=== PATIENT | male | born 1955 | race Caucasian/White ===

== ENCOUNTER 2016-08-23 11:10 | Outpatient (CLI) | payer MEDICARE, MEDICAID | END 2016-08-23 11:11 | disposition home or self-care (01) | DX: E11.9 Type 2 diabetes mellitus without complications (principal); E78.5 Hyperlipidemia, unspecified ==

== ENCOUNTER 2016-10-28 10:18 | Outpatient (CLI) | payer MEDICARE, MEDICAID | END 2016-10-28 10:19 | disposition home or self-care (01) | DX: E11.9 Type 2 diabetes mellitus without complications (principal); M45.9 Ankylosing spondylitis of unspecified sites in spine ==

== ENCOUNTER → 2017-03-25 | Outpatient (CLI) | payer MEDICARE, MEDICAID ==
[2017-03-25 12:43] LABS: BASOPHILS # (AUTO) 0.1 10^3/uL (0.0-0.1); BASOPHILS % (AUTO) 0.6 %; EOSINOPHILS # (AUTO) 0.3 10^3/uL (0.0-0.7); EOSINOPHILS % (AUTO) 2.8 %; HCT - HEMATOCRIT 44.6 % (42.0-52.0); LYMPHOCYTES # (AUTO) 2.2 10^3/uL (1.5-3.5); LYMPHOCYTES % (AUTO) 24.2 %; MEAN CORPUSCULAR HEMOGLOBIN 31.1 pg (27.0-31.0); MEAN CORPUSCULAR HGB CONC 33.7 g/dL (32.0-36.0); MEAN CORPUSCULAR VOLUME 92.5 fL (80.0-94.0); MONOCYTES # (AUTO) 0.7 10^3/uL (0.0-1.0); MONOCYTES % (AUTO) 7.8 %; NEUTROPHILS # (AUTO) 5.7 10^3/uL (1.5-6.6); NEUTROPHILS % (AUTO) 64.6 %; RED BLOOD COUNT 4.82 10^6/uL (4.70-6.10); RED CELL DISTRIBUTION WIDTH 13.8 % (12.0-15.0); UNCORRECTED WHITE BLOOD COUNT 8.9 x10^3/uL; WHITE BLOOD COUNT 8.9 x10^3/uL (4.8-10.8)
[2017-03-25 12:59] LABS: ALBUMIN/GLOBULIN RATIO 1.4 (1.0-2.2); BILIRUBIN,TOTAL 0.5 mg/dL (0.2-1.0); CALCIUM 9.4 mg/dL (8.5-10.3); CREATININE 1.1 mg/dL (0.6-1.2); POTASSIUM 4.3 mmol/L (3.5-5.0); TOTAL PROTEIN 7.1 g/dL (6.7-8.2)
[2017-03-25 13:40] LABS: HEMOGLOBIN A1C 0.76 g/dL
== END ==
LOC: LAB.WCP 08:59
PROVIDERS: ATTEND Family Medicine
DX: E11.9 Type 2 diabetes mellitus without complications (principal)
CPT/HCPCS: 36415; 80053; 82043; 83036; 85025

== ENCOUNTER 2017-04-09 12:19 | Outpatient (CLI) | payer MEDICARE, MEDICAID ==
[2017-04-09 19:17] LABS: BASOPHILS # (AUTO) 0.1 10^3/uL (0.0-0.1); BASOPHILS % (AUTO) 1.4 %; EOSINOPHILS # (AUTO) 0.1 10^3/uL (0.0-0.7); EOSINOPHILS % (AUTO) 1.4 %; HGB - HEMOGLOBIN 14.2 g/dL (14.0-18.0); LYMPHOCYTES # (AUTO) 3.2 10^3/uL (1.5-3.5); MEAN CORPUSCULAR HEMOGLOBIN 30.8 pg (27.0-31.0); MEAN CORPUSCULAR VOLUME 93.3 fL (80.0-94.0); MEAN PLATELET VOLUME 7.3 fL (7.4-11.4); MONOCYTES # (AUTO) 0.8 10^3/uL (0.0-1.0); MONOCYTES % (AUTO) 7.2 %; NEUTROPHILS # (AUTO) 6.1 10^3/uL (1.5-6.6); NUCLEATED RED BLOOD CELLS AUTO 0.1 /100WBC; RED BLOOD COUNT 4.61 10^6/uL (4.70-6.10); RED CELL DISTRIBUTION WIDTH 14.1 % (12.0-15.0); UNCORRECTED WHITE BLOOD COUNT 10.4 x10^3/uL; WHITE BLOOD COUNT 10.4 x10^3/uL (4.8-10.8)
== END 2017-04-09 12:20 | disposition home or self-care (01) ==
LOC: LAB.WCP 12:19
PROVIDERS: ATTEND Internal Medicine Rheumatology
DX: M45.9 Ankylosing spondylitis of unspecified sites in spine (principal)
CPT/HCPCS: 36415; 84450; 84460; 85025; 85651

== ENCOUNTER 2017-04-15 11:30 | Outpatient (CLI) | payer MEDICARE, MEDICAID ==
--- NOTE | 2017-04-15 18:12 | CT Report ---
CT CHEST WITHOUT CONTRAST: 04/15/2017 CLINICAL INDICATION: A 61-year-old asymptomatic patient with 35 pack year history of smoking, curren t smoker for lung cancer screening. Axial CT images of the chest were obtained without intravenous contrast, using low dose screening figueroa hnique. In accordance with CT protocol optimization, one or more of the following dose reduction techniques w ere utilized for this exam: automated exposure control, adjustment of mA and/or KV based on patient size, or use of iterative reconstructive technique. No previous CT is available for comparison. The heart and great vessels demonstrate mild atherosclerotic calcification. Emphysema is present, wi th right worse than left apical scarring. No suspicious pulmonary nodule or mass lesion is present. No effusion or pneumothorax. Osseous structures demonstrate degenerative changes. Limited evaluati on of upper abdominal structures demonstrates normal adrenal glands. IMPRESSION: EMPHYSEMA, WITH BIAPICAL SCARRING. NO SUSPICIOUS PULMONARY NODULE OR MASS LESION. RECOMMENDATION: CONTINUE ANNUAL SCREENING, WITH LOW DOSE CT IN 12 MONTHS. LUNG RADS CATEGORY 1, NEGATIVE. JOB #: [id number] EXT JOB #:[id number]
== END 2017-04-15 11:31 | disposition home or self-care (01) ==
LOC: DI 11:30
PROVIDERS: ATTEND Family Medicine
DX: Z12.2 Encounter for screening for malignant neoplasm of respiratory organs (principal); J43.9 Emphysema, unspecified; F17.210 Nicotine dependence, cigarettes, uncomplicated

== ENCOUNTER 2017-07-16 11:40 | Outpatient (CLI) | payer MEDICARE, MEDICAID ==
[2017-07-16 19:32] LABS: BASOPHILS # (AUTO) 0.1 10^3/uL (0.0-0.1); BASOPHILS % (AUTO) 0.6 %; EOSINOPHILS # (AUTO) 0.1 10^3/uL (0.0-0.7); EOSINOPHILS % (AUTO) 1.2 %; HGB - HEMOGLOBIN 13.7 g/dL (14.0-18.0); LYMPHOCYTES # (AUTO) 2.6 10^3/uL (1.5-3.5); LYMPHOCYTES % (AUTO) 27.2 %; MEAN CORPUSCULAR HGB CONC 32.3 g/dL (32.0-36.0); MEAN CORPUSCULAR VOLUME 92.8 fL (80.0-94.0); MONOCYTES # (AUTO) 0.7 10^3/uL (0.0-1.0); MONOCYTES % (AUTO) 6.7 %; NEUTROPHILS # (AUTO) 6.2 10^3/uL (1.5-6.6); NEUTROPHILS % (AUTO) 64.3 %; PLT - PLATELET COUNT 321 10^3/uL (130-450); RED BLOOD COUNT 4.55 10^6/uL (4.70-6.10); RED CELL DISTRIBUTION WIDTH 13.2 % (12.0-15.0); WHITE BLOOD COUNT 9.7 x10^3/uL (4.8-10.8)
[2017-07-16 19:51] LABS: HB2 TOTAL 14.8 g/dL; HEMOGLOBIN A1C 0.64 g/dL; HEMOGLOBIN A1C % 6.1 % (4.6-6.2)
[2017-07-16 19:52] LABS: ALBUMIN/GLOBULIN RATIO 1.3 (1.0-2.2); ALKALINE PHOSPHATASE 55 IU/L (42-121); ALT ALANINE AMINOTRANSFERASE 18 IU/L (10-60); AST ASPARTATE AMINOTRANSFERASE 22 IU/L (10-42); BILIRUBIN,TOTAL 0.3 mg/dL (0.2-1.0); BUN - BLOOD UREA NITROGEN 15 mg/dL (6-20); CALCIUM 9.7 mg/dL (8.5-10.3); CARBON DIOXIDE - CO2 29 mmol/L (21-32); CHLORIDE 101 mmol/L (101-111); CHOL/HDL RATIO 3.8 (<5.0); CHOLESTEROL 144 mg/dL; CREATININE 0.9 mg/dL (0.6-1.2); GFR - MDRD 86 (>89); GLUCOSE 110 mg/dL (70-100); HDL CHOLESTEROL 38 mg/dL; LDL CHOLESTEROL,CALCULATED 94 mg/dL; LDL/HDL RATIO 2.5 (<3.6); SODIUM 136 mmol/L (135-145); TOTAL PROTEIN 7.1 g/dL (6.7-8.2); VLDL CHOLESTEROL 12 mg/dL
== END 2017-07-16 11:41 ==
LOC: LAB.WCP 11:40
PROVIDERS: ATTEND Family Medicine
DX: E11.9 Type 2 diabetes mellitus without complications (principal); Z12.5 Encounter for screening for malignant neoplasm of prostate
CPT/HCPCS: 36415; 80053; 80061; 83036; 84443; 85025; G0103; 84153

== ENCOUNTER 2017-08-14 09:31 | Outpatient (CLI) | payer MEDICARE, MEDICAID ==
[2017-08-14] MEDS ORDERED: REGADENOSON 0.4 MG/5 ML SYRINGE IVP ONE ×2 (09:37→14:37)
[2017-08-14 17:04] VITALS: BP 148/84
--- NOTE | 2017-08-14 18:27 | CARDIAC PROCEDURE NOTE ---
DATE OF SERVICE: 08/14/2017 Physician: DARREN Qureshi PRIMARY CARE PHYSICIAN: Dr. Nya Tee PROCEDURE: Pharmacologic cardiac stress test. PROCEDURE DIAGNOSIS: Chest pain and ECG changes of inferior T-wave inversion. CARDIAC RISK FACTORS: Include age, smoker, diabetes, hypertension, and hyperlipidemia. PREVIOUS CARDIAC PROCEDURES: None. CLINICAL HISTORY: 61-year-old male without known coronary artery disease. The patient has COPD. INITIAL RESTING VITAL SIGNS: Blood pressure 148/84, heart rate 68. Height 64 inches, weight 177 pounds, BMI 30.0. PROCEDURE AND FINDINGS: The patient identity and date verified, consent signed, pharmaceutical check. Pharmacologic stress testing was performed with Lexiscan at a dose of 0.4 mg over 10 seconds. The heart rate increased to 74 beats per minute from the infusion. Blood pressure response was normal during the stress procedure. The patient developed no infusion-related symptoms. The resting ECG demonstrated normal sinus rhythm with nonspecific inferior T-wave inversions in leads II, III, and aVF. These were consistent with the office ECG. Maximal ST segment depression with stress was 0. There were no other T wave changes and no ectopy. FINAL IMPRESSIONS 1. Nondiagnostic electrocardiogram for ischemia in the setting of vasodilator stress. 2. Negative stress test for angina. 3. No ectopy. 4. Await myocardial perfusion report. TD: 08/14/2017 18:26 KI
--- NOTE | 2017-08-15 11:06 | Nuclear Medicine Report ---
EXAM: NUCLEAR MEDICINE MYOCARDIAL PERFUSION STRESS AND REST EXAM DATE: 08/14/2017 02:47 PM. CLINICAL HISTORY: Chest pain. COMPARISON: X-ray 07/30/2017. TECHNIQUE: Patient given 10.3 mCi technetium 99m sestamibi IV for the rest portion of the study. Non- gated cardiac SPECT scintigraphy performed with multiplanar reformats. After an appropriate delay, patient given 0.4 mg Lexiscan IV for pharmacologic stress. Patient given 41.8 mCi technetium 99m sestamibi IV. Cardiac gated SPECT scintigraphy performed with m ultiplanar reformats, left ventricular ejection fraction estimation, and wall motion analysis. FINDINGS: There is a moderate-sized focus of moderate decreased activity in the basilar inferior wall extending inferoseptal. This is fixed on stress and rest. Also, small focus fixed mild decreased activity apical inferolateral wall. No reversible stress-related perfusion defects. Inferior basilar wall hypokinesis. Left ventricular ejection fraction estimated at 49%. IMPRESSION: 1. Inferior basilar infarct extending inferoseptal. 2. Left ventricular ejection fraction estimated at 49%. 3. No scintigraphic evidence of inducible ischemia. [facility] Referring Provider Line: [phone] SITE ID: [id number]
== END 2017-08-14 09:32 | disposition home or self-care (01) ==
LOC: DI 09:31
PROVIDERS: ATTEND Family Medicine
DX: R07.9 Chest pain, unspecified (principal); R94.39 Abnormal result of other cardiovascular function study; E11.9 Type 2 diabetes mellitus without complications; I10 Essential (primary) hypertension; E78.5 Hyperlipidemia, unspecified; F17.210 Nicotine dependence, cigarettes, uncomplicated
CPT/HCPCS: 78452; 93017; A9500; J2785

== ENCOUNTER 2017-09-09 13:00 | Outpatient (CLI) | payer MEDICARE, MEDICAID ==
[2017-09-09 12:45] LABS: PT - PROTHROMBIN TIME 11.2 secs (9.9-12.6)
[2017-09-09 12:48] LABS: BASOPHILS # (AUTO) 0.1 10^3/uL (0.0-0.1); BASOPHILS % (AUTO) 0.7 %; EOSINOPHILS # (AUTO) 0.2 10^3/uL (0.0-0.7); EOSINOPHILS % (AUTO) 2.1 %; HGB - HEMOGLOBIN 13.7 g/dL (14.0-18.0); LYMPHOCYTES # (AUTO) 1.8 10^3/uL (1.5-3.5); LYMPHOCYTES % (AUTO) 20.8 %; MEAN CORPUSCULAR HEMOGLOBIN 30.4 pg (27.0-31.0); MEAN CORPUSCULAR HGB CONC 33.9 g/dL (32.0-36.0); MEAN CORPUSCULAR VOLUME 89.8 fL (80.0-94.0); MEAN PLATELET VOLUME 7.4 fL (7.4-11.4); MONOCYTES # (AUTO) 0.7 10^3/uL (0.0-1.0); NEUTROPHILS # (AUTO) 6.1 10^3/uL (1.5-6.6); NEUTROPHILS % (AUTO) 68.4 %; PLT - PLATELET COUNT 260 10^3/uL (130-450); RED BLOOD COUNT 4.49 10^6/uL (4.70-6.10); RED CELL DISTRIBUTION WIDTH 13.5 % (12.0-15.0); WHITE BLOOD COUNT 8.9 x10^3/uL (4.8-10.8)
[2017-09-09 13:50] LABS: CALCIUM 8.9 mg/dL (8.5-10.3); CREATININE 0.8 mg/dL (0.6-1.2)
== END 2017-09-09 13:01 | disposition home or self-care (01) ==
LOC: LAB.N 13:00
PROVIDERS: ATTEND Internal Medicine Cardiovascular Disease
DX: R94.39 Abnormal result of other cardiovascular function study (principal); I20.9 Angina pectoris, unspecified
CPT/HCPCS: 36415; 80048; 85025; 85610; 85730

== ENCOUNTER 2017-12-03 08:00 | Outpatient (CLI) | payer MEDICARE, MEDICAID ==
[2017-12-03 18:56] LABS: BASOPHILS # (AUTO) 0.1 10^3/uL (0.0-0.1); BASOPHILS % (AUTO) 0.7 %; EOSINOPHILS # (AUTO) 0.1 10^3/uL (0.0-0.7); EOSINOPHILS % (AUTO) 1.5 %; HGB - HEMOGLOBIN 13.4 g/dL (14.0-18.0); LYMPHOCYTES # (AUTO) 2.7 10^3/uL (1.5-3.5); LYMPHOCYTES % (AUTO) 28.6 %; MEAN CORPUSCULAR HGB CONC 32.8 g/dL (32.0-36.0); MEAN CORPUSCULAR VOLUME 91.7 fL (80.0-94.0); MEAN PLATELET VOLUME 6.9 fL (7.4-11.4); MONOCYTES # (AUTO) 0.6 10^3/uL (0.0-1.0); MONOCYTES % (AUTO) 6.6 %; NEUTROPHILS # (AUTO) 5.8 10^3/uL (1.5-6.6); NEUTROPHILS % (AUTO) 62.6 %; PLT - PLATELET COUNT 312 10^3/uL (130-450); RED BLOOD COUNT 4.45 10^6/uL (4.70-6.10); RED CELL DISTRIBUTION WIDTH 13.2 % (12.0-15.0); WHITE BLOOD COUNT 9.3 x10^3/uL (4.8-10.8)
[2017-12-03 19:28] LABS: ALBUMIN 3.7 g/dL (3.2-5.5); ALBUMIN/GLOBULIN RATIO 1.1 (1.0-2.2); ALKALINE PHOSPHATASE 62 IU/L (42-121); ALT ALANINE AMINOTRANSFERASE 19 IU/L (10-60); AST ASPARTATE AMINOTRANSFERASE 22 IU/L (10-42); BILIRUBIN,TOTAL 0.4 mg/dL (0.2-1.0); BUN - BLOOD UREA NITROGEN 20 mg/dL (6-20); CALCIUM 9.4 mg/dL (8.5-10.3); CARBON DIOXIDE - CO2 23 mmol/L (21-32); CHLORIDE 102 mmol/L (101-111); GFR - MDRD 76 (>89); GLUCOSE 282 mg/dL (70-100); SODIUM 132 mmol/L (135-145)
[2017-12-03 19:36] LABS: CRP - C-REACTIVE PROTEIN < 1.0 mg/dL (0-1.0)
== END 2017-12-03 08:01 | disposition home or self-care (01) ==
LOC: LAB.WCP 08:00
PROVIDERS: ATTEND Internal Medicine Rheumatology
DX: M45.9 Ankylosing spondylitis of unspecified sites in spine (principal)
CPT/HCPCS: 36415; 80053; 85025; 85651; 86140

== ENCOUNTER 2018-03-17 08:00 | Outpatient (CLI) | payer MEDICARE, MEDICAID ==
[2018-03-17 13:13] LABS: BASOPHILS # (AUTO) 0.1 10^3/uL (0.0-0.1); BASOPHILS % (AUTO) 0.9 %; EOSINOPHILS # (AUTO) 0.2 10^3/uL (0.0-0.7); EOSINOPHILS % (AUTO) 2.2 %; HGB - HEMOGLOBIN 13.5 g/dL (14.0-18.0); LYMPHOCYTES # (AUTO) 2.4 10^3/uL (1.5-3.5); LYMPHOCYTES % (AUTO) 31.8 %; MEAN CORPUSCULAR HEMOGLOBIN 30.4 pg (27.0-31.0); MEAN CORPUSCULAR HGB CONC 33.8 g/dL (32.0-36.0); MEAN CORPUSCULAR VOLUME 90.2 fL (80.0-94.0); MONOCYTES # (AUTO) 0.6 10^3/uL (0.0-1.0); MONOCYTES % (AUTO) 7.6 %; NEUTROPHILS # (AUTO) 4.3 10^3/uL (1.5-6.6); NEUTROPHILS % (AUTO) 57.5 %; PLT - PLATELET COUNT 291 10^3/uL (130-450); RED BLOOD COUNT 4.43 10^6/uL (4.70-6.10); RED CELL DISTRIBUTION WIDTH 14.4 % (12.0-15.0); WHITE BLOOD COUNT 7.5 x10^3/uL (4.8-10.8)
[2018-03-17 13:35] LABS: ALBUMIN 3.9 g/dL (3.2-5.5); ALKALINE PHOSPHATASE 68 IU/L (42-121); ALT ALANINE AMINOTRANSFERASE 21 IU/L (10-60); AST ASPARTATE AMINOTRANSFERASE 23 IU/L (10-42); BILIRUBIN,TOTAL 0.5 mg/dL (0.2-1.0); BUN - BLOOD UREA NITROGEN 18 mg/dL (6-20); CALCIUM 9.5 mg/dL (8.5-10.3); CARBON DIOXIDE - CO2 27 mmol/L (21-32); CHLORIDE 99 mmol/L (101-111); CREATININE 1.1 mg/dL (0.6-1.2); GFR - MDRD 68 (>89); GLUCOSE 167 mg/dL (70-100); SODIUM 135 mmol/L (135-145); TOTAL PROTEIN 7.1 g/dL (6.7-8.2)
[2018-03-17 13:36] LABS: ALBUMIN/GLOBULIN RATIO 1.2 (1.0-2.2); CHOL/HDL RATIO 3.2 (<5.0); CHOLESTEROL 108 mg/dL; HDL CHOLESTEROL 34 mg/dL; LDL CHOLESTEROL,CALCULATED 52 mg/dL; LDL/HDL RATIO 1.5 (<3.6); VLDL CHOLESTEROL 22 mg/dL
[2018-03-17 13:46] LABS: HB2 TOTAL 14.6 g/dL; HEMOGLOBIN A1C 0.92 g/dL; HEMOGLOBIN A1C % 7.9 % (4.6-6.2)
== END 2018-03-17 08:01 | disposition home or self-care (01) ==
LOC: LAB.WCP 08:00
PROVIDERS: ATTEND Family Medicine
DX: E11.9 Type 2 diabetes mellitus without complications (principal)
CPT/HCPCS: 36415; 80053; 80061; 82043; 83036; 83721; 84443; 85025

== ENCOUNTER → 2018-04-23 | Outpatient (CLI) | payer MEDICARE, MEDICAID | LOC: RT 12:30 | PROVIDERS: ATTEND Internal Medicine Cardiovascular Disease | DX: R07.9 Chest pain, unspecified (principal) | CPT/HCPCS: 93005 ==

== ENCOUNTER 2018-07-13 08:00 | Outpatient (CLI) | payer MEDICARE, MEDICAID ==
[2018-07-13 13:39] LABS: ALBUMIN 3.9 g/dL (3.2-5.5); ALBUMIN/GLOBULIN RATIO 1.2 (1.0-2.2); ALKALINE PHOSPHATASE 55 IU/L (42-121); ALT ALANINE AMINOTRANSFERASE 20 IU/L (10-60); AST ASPARTATE AMINOTRANSFERASE 27 IU/L (10-42); BILIRUBIN,TOTAL 0.4 mg/dL (0.2-1.0); BUN - BLOOD UREA NITROGEN 23 mg/dL (6-20); CALCIUM 9.1 mg/dL (8.5-10.3); CARBON DIOXIDE - CO2 27 mmol/L (21-32); CHLORIDE 103 mmol/L (101-111); CHOL/HDL RATIO 2.1 (<5.0); CHOLESTEROL 100 mg/dL; CREATININE 0.9 mg/dL (0.6-1.2); GFR - MDRD 86 (>89); GLUCOSE 127 mg/dL (70-100); HDL CHOLESTEROL 47 mg/dL; LDL CHOLESTEROL,CALCULATED 44 mg/dL; LDL/HDL RATIO 0.9 (<3.6); SODIUM 138 mmol/L (135-145); TOTAL PROTEIN 7.1 g/dL (6.7-8.2); VLDL CHOLESTEROL 9 mg/dL
[2018-07-13 14:19] LABS: BASOPHILS # (AUTO) 0.1 10^3/uL (0.0-0.1); BASOPHILS % (AUTO) 0.8 %; EOSINOPHILS # (AUTO) 0.1 10^3/uL (0.0-0.7); EOSINOPHILS % (AUTO) 1.6 %; HGB - HEMOGLOBIN 13.1 g/dL (14.0-18.0); LYMPHOCYTES # (AUTO) 1.9 10^3/uL (1.5-3.5); MEAN CORPUSCULAR HEMOGLOBIN 30.9 pg (27.0-31.0); MEAN CORPUSCULAR HGB CONC 33.6 g/dL (32.0-36.0); MEAN CORPUSCULAR VOLUME 92.1 fL (80.0-94.0); MEAN PLATELET VOLUME 7.1 fL (7.4-11.4); MONOCYTES # (AUTO) 0.5 10^3/uL (0.0-1.0); MONOCYTES % (AUTO) 6.6 %; NEUTROPHILS # (AUTO) 5.5 10^3/uL (1.5-6.6); PLT - PLATELET COUNT 306 10^3/uL (130-450); RED BLOOD COUNT 4.24 10^6/uL (4.70-6.10); RED CELL DISTRIBUTION WIDTH 13.9 % (12.0-15.0); WHITE BLOOD COUNT 8.1 x10^3/uL (4.8-10.8)
[2018-07-13 14:23] LABS: HB2 TOTAL 13.9 g/dL; HEMOGLOBIN A1C 0.71 g/dL; HEMOGLOBIN A1C % 6.8 % (4.6-6.2)
== END 2018-07-13 23:59 | disposition home or self-care (01) ==
LOC: LAB.WCP 08:00
PROVIDERS: ATTEND Family Medicine
DX: E11.9 Type 2 diabetes mellitus without complications (principal)
CPT/HCPCS: 36415; 80053; 80061; 83036; 83721; 85025

== ENCOUNTER 2018-07-29 08:00 | Outpatient (CLI) | payer MEDICARE, MEDICAID | END 2018-07-29 23:59 | disposition home or self-care (01) | LOC: LAB.N 08:00 | PROVIDERS: ATTEND Internal Medicine Rheumatology | DX: M45.9 Ankylosing spondylitis of unspecified sites in spine (principal) | CPT/HCPCS: 36415; 85651; 86140 ==

== ENCOUNTER 2018-10-01 07:37 | Outpatient (CLI) | payer MEDICARE, MEDICAID ==
--- NOTE | 2018-10-01 15:54 | MRI Report ---
Reason: SHOULDER PAIN Procedure Date: 10/01/2018 Accession Number: [id number] / [id number] Procedure: MRI - Shoulder RT W/O CPT Code: FULL RESULT: EXAM: RIGHT SHOULDER MRI WITHOUT CONTRAST EXAM DATE: 10/01/2018 08:38 AM. CLINICAL HISTORY: Shoulder pain. COMPARISON: None. TECHNIQUE: Multiplanar, multisequence T1-weighted and fluid-sensitive sequences of the shoulder without contrast. Other: None. FINDINGS: Acromioclavicular Region: The acromion is type II. AC joint is moderately osteoarthritic. The coracoacromial and coracoclavicular ligaments are intact. No subacromial/subdeltoid bursal fluid. Glenohumeral Region: No subluxation. No effusion or loose bodies. The articular cartilage is unremarkable. The glenohumeral ligaments and joint capsule are unremarkable. Bone Marrow: No fracture, marrow edema or bone lesions. Labrum: The labrum is unremarkable on this nonarthrographic study. Musculature/Rotator Cuff: Increased T2 signal is seen in the supraspinatus and infraspinatus portions of the rotator cuff without partial-thickness or full-thickness fluid-filled gaps. Subscapularis and teres minor are normal. In the central aspect of the musculotendinous junction of the infraspinatus, there is a fusiform shaped fluid collection. Series 801 image 2, series 501 image 18. Other muscle bellies appear unremarkable. Biceps Tendon: The long head of the biceps tendon and biceps beau are intact. Other: The subcutaneous tissues are unremarkable. IMPRESSION: 1. Type II unipartite undersurface osseous acromion shape. AC joint is moderately osteoarthritic. 2. Mild to moderate tendinopathy/tendinitis at the supraspinatus and infraspinatus portions of the rotator cuff. 3. There is a focal area of fluid seen within the musculotendinous junction of the infraspinatus, this is probably an intramuscular tear with some fluid in it. 4. Labrum, capsular structures and long head of biceps appear unremarkable. [facility] MUSCULOSKELETAL RADIOLOGY SECTION
== END 2018-10-01 07:38 | disposition home or self-care (01) ==
LOC: DI 07:37
PROVIDERS: ATTEND Orthopaedic Surgery Sports Medicine
DX: M19.011 Primary osteoarthritis, right shoulder (principal); M77.8 Other enthesopathies, not elsewhere classified; M67.911 Unspecified disorder of synovium and tendon, right shoulder

== ENCOUNTER 2018-10-19 08:00 | Outpatient (CLI) | payer MEDICARE, MEDICAID ==
[2018-10-19 13:01] LABS: BUN - BLOOD UREA NITROGEN 24 mg/dL (6-20); CALCIUM 9.4 mg/dL (8.5-10.3); CARBON DIOXIDE - CO2 28 mmol/L (21-32); CHLORIDE 102 mmol/L (101-111); CHOL/HDL RATIO 2.6 (<5.0); CHOLESTEROL 105 mg/dL; GFR - MDRD 76 (>89); GLUCOSE 196 mg/dL (70-100); HDL CHOLESTEROL 40 mg/dL; LDL CHOLESTEROL,CALCULATED 54 mg/dL; LDL/HDL RATIO 1.4 (<3.6); SODIUM 136 mmol/L (135-145); VLDL CHOLESTEROL 11 mg/dL
[2018-10-19 13:09] LABS: CREATININE,URINE 67.8 mg/dL; MICROALBUM/CREATININE RATIO,UR 160.8 ug/mg (<30.0); MICROALBUMIN,URINE 10.9 mg/dL (0-300.0)
[2018-10-19 13:11] LABS: HB2 TOTAL 14.4 g/dL; HEMOGLOBIN A1C 0.78 g/dL; HEMOGLOBIN A1C % 7.1 % (4.6-6.2)
== END 2018-10-19 23:59 | disposition home or self-care (01) ==
LOC: LAB.WCP 08:00
PROVIDERS: ATTEND Family Medicine
DX: E11.9 Type 2 diabetes mellitus without complications (principal); E78.5 Hyperlipidemia, unspecified
CPT/HCPCS: 36415; 80048; 80061; 82043; 82570; 83036; 83721

== ENCOUNTER 2018-11-19 12:07 | Outpatient (CLI) | payer MEDICARE, MEDICAID ==
--- NOTE | 2018-11-20 09:25 | MRI Report ---
Reason: SHOULDER PAIN, LEFT Procedure Date: 11/19/2018 Accession Number: [id number] / [id number] Procedure: MRI - Shoulder LT W/O CPT Code: FULL RESULT: EXAM: LEFT SHOULDER MRI WITHOUT CONTRAST EXAM DATE: 11/19/2018 12:38 PM. CLINICAL HISTORY: Shoulder pain, left. COMPARISON: None. TECHNIQUE: Multiplanar, multisequence T1-weighted and fluid-sensitive sequences of the shoulder without contrast. Other: None. FINDINGS: Acromioclavicular Region: The acromion is type II unipartite. AC joint is moderately osteoarthritic. Small joint effusion. The coracoacromial and coracoclavicular ligaments are intact. No subacromial/subdeltoid bursal fluid. Glenohumeral Region: No subluxation. No effusion or loose bodies. The articular cartilage is unremarkable. The glenohumeral ligaments and joint capsule are unremarkable. Bone Marrow: No fracture, marrow edema or bone lesions. Labrum: Small sub-labral hole anteriorly. No paralabral cyst. No discrete anterior tears. There is a suggestion of a small focal intermediate intensity defect at the posterior labrum. Series 401 image 15. Musculature/Rotator Cuff: Supraspinatus and infraspinatus portions of the rotator cuff are thickened and show some increased T2 signal. Mild increased T2 signal also seen in the subscapularis. Teres minor is normal. No proximal muscular edema or fatty atrophy. Biceps Tendon: The long head of the biceps tendon and biceps beau are intact. Other: The subcutaneous tissues are unremarkable. IMPRESSION: 1. Type II unipartite undersurface osseous acromion shape. AC joint is moderately osteoarthritic. Small joint effusion. 2. There is a small sub-labral hole anteriorly. At the posterior aspect of the labrum a small focal intermediate intensity defect is present, uncertain consequence. This does not meet the MRI criteria for tear on a non-arthrographic shoulder MRI. 3. Tendinitis at the supraspinatus and infraspinatus portions of the rotator cuff. Mild tendinopathy at the subscapularis. 4. Long head of biceps and biceps labral attachment are normal. [facility]
== END 2018-11-19 12:08 | disposition home or self-care (01) ==
LOC: DI 12:07
PROVIDERS: ATTEND Orthopaedic Surgery Sports Medicine
DX: M19.012 Primary osteoarthritis, left shoulder (principal); M25.412 Effusion, left shoulder; M75.92 Shoulder lesion, unspecified, left shoulder

== ENCOUNTER 2019-04-06 08:00 | Outpatient (CLI) | payer MEDICARE, MEDICAID ==
[2019-04-06 12:00] LABS: BASOPHILS # (AUTO) 0.1 10^3/uL (0.0-0.1); BASOPHILS % (AUTO) 0.7 %; EOSINOPHILS # (AUTO) 0.1 10^3/uL (0.0-0.7); HGB - HEMOGLOBIN 13.3 g/dL (14.0-18.0); LYMPHOCYTES # (AUTO) 2.7 10^3/uL (1.5-3.5); LYMPHOCYTES % (AUTO) 26.6 %; MEAN CORPUSCULAR HEMOGLOBIN 30.8 pg (27.0-31.0); MEAN CORPUSCULAR HGB CONC 33.4 g/dL (32.0-36.0); MEAN CORPUSCULAR VOLUME 92.1 fL (80.0-94.0); MONOCYTES # (AUTO) 0.6 10^3/uL (0.0-1.0); MONOCYTES % (AUTO) 6.2 %; NEUTROPHILS # (AUTO) 6.5 10^3/uL (1.5-6.6); NEUTROPHILS % (AUTO) 64.6 %; PLT - PLATELET COUNT 263 10^3/uL (130-450); RED BLOOD COUNT 4.32 10^6/uL (4.70-6.10); RED CELL DISTRIBUTION WIDTH 13.5 % (12.0-15.0)
[2019-04-06 12:17] LABS: ALBUMIN 3.9 g/dL (3.2-5.5); ALBUMIN/GLOBULIN RATIO 1.3 (1.0-2.2); ALKALINE PHOSPHATASE 66 IU/L (42-121); ALT ALANINE AMINOTRANSFERASE 16 IU/L (10-60); AST ASPARTATE AMINOTRANSFERASE 16 IU/L (10-42); BILIRUBIN,TOTAL 0.3 mg/dL (0.2-1.0); BUN - BLOOD UREA NITROGEN 27 mg/dL (6-20); CALCIUM 9.7 mg/dL (8.5-10.3); CARBON DIOXIDE - CO2 26 mmol/L (21-32); CHLORIDE 109 mmol/L (101-111); CHOL/HDL RATIO 2.6 (<5.0); CHOLESTEROL 113 mg/dL; CREATININE 1.2 mg/dL (0.6-1.2); GFR - MDRD 62 (>89); GLUCOSE 167 mg/dL (70-100); HDL CHOLESTEROL 44 mg/dL; LDL CHOLESTEROL,CALCULATED 55 mg/dL; LDL/HDL RATIO 1.3 (<3.6); SODIUM 139 mmol/L (135-145); VLDL CHOLESTEROL 14 mg/dL
[2019-04-06 13:38] LABS: HB2 TOTAL 13.8 g/dL; HEMOGLOBIN A1C 0.76 g/dL; HEMOGLOBIN A1C % 7.2 % (4.6-6.2)
== END 2019-04-06 23:59 | disposition home or self-care (01) ==
LOC: LAB.WCP 08:00
PROVIDERS: ATTEND Family Medicine
DX: E11.9 Type 2 diabetes mellitus without complications (principal)
CPT/HCPCS: 36415; 80053; 80061; 83036; 83721; 85025

== ENCOUNTER 2019-05-14 12:01 | Outpatient (CLI) | payer MEDICARE, MEDICAID ==
--- NOTE | 2019-05-14 15:40 | Mammography Report ---
Reason: LUMP IN LT BREAST Procedure Date: 05/14/2019 Accession Number: [id number] / [id number] Procedure: AMOS - Diagnostic Dig Bilat CPT Code: Final Report FULL RESULT: EXAM: Diagnostic Dig Bilat DATE: 05/14/2019 1:24 PM CLINICAL HISTORY: Diagnostic examination. Palpable left breast lump for multiple months. TECHNIQUE: (B) - Bilateral CC and MLO views were obtained. Left LM view is obtained. COMPARISON: None PARENCHYMAL PATTERN: (A) - The breast(s) demonstrate(s) scattered fibroglandular densities. FINDINGS: Is focally increased retroareolar soft tissue in the left breast with an appearance most compatible with gynecomastia benign mammographic appearance. There are no suspicious masses, calcifications, or areas of distortion. IMPRESSION: Benign findings. BI-RADS category 2. RECOMMENDATION: (CLIN) - Clinical follow-up for symptoms is recommended. BI-RADS CATEGORY: (2) - Benign Findings. STANDARD QUALIFYING STATEMENTS: 1. This examination was not reviewed with the aid of Computer-Aided Detection (CAD). 2. A negative or benign imaging report should not preclude biopsy if clinically suspicious findings are present. 3. Dense breasts may obscure an underlying neoplasm. 4. This examination was reviewed without the aid of 3D breast imaging (tomosynthesis).
== END 2019-05-14 12:02 | disposition home or self-care (01) ==
LOC: DI 12:01
PROVIDERS: ATTEND Family Medicine
DX: N63.24 Unspecified lump in the left breast, lower inner quadrant (principal)
CPT/HCPCS: 77066

== ENCOUNTER 2019-07-04 10:00 | Emergency (ER) | payer MEDICARE, MEDICAID ==
--- NOTE | 2019-07-04 10:28 | ED Physician Documentation ---
PD HPI URI - Stated complaint Stated Complaint: COUGHING - Chief complaint Chief Complaint: Resp - History obtained from History obtained from: Patient - History of Present Illness Timing - onset: How many months ago Timing duration: Months (1) Timing details: Gradual onset Associated symptoms: Nasal congestion, Rhinorrhea, Productive cough, Chest pain, Dyspnea. No: Fever, Hemoptysis Contributing factors: Sick contact Improves by: Nothing Similar symptoms before: Work up / diagnostics Recently seen: Other (Currently in speech therapy for swallowing) - Additional information Additional information: This is a 63-year-old man who presents with his brother complaints that he has been coughing for over a month now brings water up out of his throat and through his nose kind of like a clear phlegm. 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 Patient did get a flu vaccine. He is not running any fever. He is complaining of chest pain across anterior aspect but that is been there for a month as well and is short of breath over the intervening month as well. Patient complains of a headache and just feels that over the past 48 to 72 hours his symptoms have gotten more significantly progressively worse. He has not felt dizzy. No vomiting or abdominal pain. Denies history of asthma or emphysema. He has undergone endoscopy several years ago and to their knowledge there was no stricture of the esophagus. Review of Systems Constitutional: denies: Fever Ears: denies: Ear pain Nose: reports: Rhinorrhea / runny nose, Congestion Throat: reports: Sore throat Cardiac: reports: Chest pain / pressure Respiratory: reports: Dyspnea, Cough. denies: Hemoptysis GI: denies: Nausea, Vomiting Neurologic: reports: Generalized weakness, Headache. denies: Syncope PD PAST MEDICAL HISTORY - Past Medical History Cardiovascular: Hypertension, High cholesterol Respiratory: COPD Endocrine/Autoimmune: Type 2 diabetes GI: GERD : None HEENT: None Psych: None Musculoskeletal: Osteoarthritis, Chronic back pain Derm: None - Past Surgical History General: Cholecystectomy, Appendectomy Ortho:  HEENT: Tonsil/Adenoidectomy - Present Medications Home Medications: Ambulatory Orders Medication Instructions Recorded Confirmed Cyclobenzaprine HCl 10 mg PO HS 09/10/13 12/28/14 Esomeprazole Magnesium [Nexium] 40 mg PO DAILY 09/10/13 12/28/14 Lorazepam 0.5 mg PO DAILY 09/10/13 12/28/14 Metoclopramide [Reglan] 10 mg PO TID 09/10/13 12/28/14 Naproxen Sodium [Aleve] 220 mg PO BID 09/10/13 12/28/14 Pregabalin [Lyrica] 50 mg PO BID 09/10/13 12/28/14 Sitagliptin Phos/Metformin HCl 1 each PO BID 09/10/13 12/28/14 [Janumet 50-1,000 mg Tablet] Sulfasalazine [Sulfazine] 1,000 mg PO BID 09/10/13 12/28/14 atenoloL [Tenormin] 50 mg PO DAILY 09/10/13 12/28/14 Insulin Detemir [Levemir Flextouch] 40 units SQ DAILY 07/12/14 12/28/14 Hydrocodone/Acetaminophen 1 tab PO QPM 12/28/14 12/28/14 [Hydrocodon-Acetaminophen 5-325] - Allergies Allergies/Adverse Reactions: Allergies Allergy/AdvReac Type Severity Reaction Status Date / Time No Known Drug Allergies Allergy Verified 09/10/13 08:50 - Social History Smoking Status: Current every day smoker PD ED PE NORMAL - Vitals Vital signs reviewed: Yes - General General: Alert and oriented X 3, No acute distress, Well developed/nourished - HEENT HEENT: Atraumatic, PERRL, Ears normal, Moist mucous membranes, Pharynx benign - Neck Neck: Supple, no meningeal sign, No adenopathy - Cardiac Cardiac: RRR, No murmur, Strong equal pulses - Respiratory Respiratory: No respiratory distress, Clear bilaterally - Abdomen Abdomen: Normal bowel sounds, Soft - Derm Derm: Normal color, Warm and dry, No rash - Extremities Extremities: No edema - Neuro Neuro: Normal speech - Psych Psych: Normal mood, Normal affect Results - Vitals Vitals: Vital Signs - 24 hr 07/04/19 07/04/19 10:03 11:59 Temperature 37.2 C Heart Rate 79 72 Respiratory 18 18 Rate Blood Pressure 131/75 H 109/64 O2 Saturation 98 100 Oxygen O2 Source Room air - Labs Labs: Laboratory Tests 07/04/19 10:55 Influenza A (Rapid) Negative Influenza B (Rapid) Negative PD MEDICAL DECISION MAKING - ED course Complexity details: reviewed results, d/w patient, d/w family ED course: This patient has a chronic issue with his swallowing and coughing. Chest x-ray does not show any evidence that he is developed a pneumonia in his influenza screen which is what the family was worried about is negative. Results were discussed with the family. Supportive care at home with getting lots of rest and using Tylenol or ibuprofen if needed for body aches. Follow-up with your primary care provider for further management of the underlying chronic issue. Departure - Departure Disposition: Home, Self Care Clinical Impression: Upper respiratory tract infection Qualifiers: URI type: unspecified viral URI Qualified Code(s): J06.9 - Acute upper respiratory infection, unspecified Condition: Good Instructions: ED Viral Syndrome Follow-Up: Nya Tee DO [Primary Care Provider] - Comments: Home and rest. Drink plenty of liquids. Follow-up with your primary care provider if the coughing and phlegm is increasing. Return if you have increasing shortness of breath, fever, chest pain or other problems arise. Discharge Date/Time: 07/04/19 12:00
--- NOTE | 2019-07-04 11:32 | XRAY Report ---
Reason: cough Procedure Date: 07/04/2019 Accession Number: [id number] / [id number] Procedure: XR - Chest 2 View X-Ray CPT Code: 93853 Final Report FULL RESULT: EXAM: CHEST RADIOGRAPHY EXAM DATE: 07/04/2019 11:04 AM. CLINICAL HISTORY: Cough. COMPARISON: CHEST 2 VIEW 07/30/2017 10:46 AM. TECHNIQUE: 2 views. FINDINGS: Lungs/Pleura: Patchy right upper lobe interstitial opacities are noted. Lungs are hyperinflated. No effusions or pneumothorax. Mediastinum: Heart and mediastinal contours are unremarkable. Other: None. IMPRESSION: 1. Patchy right upper lobe opacities concerning for infiltrates given the provided history. 2. Probable COPD. No effusions or pneumothorax. [facility]
[2019-07-04 12:00] VITALS: BP 109/64
== END 2019-07-04 12:00 | disposition home or self-care (01) ==
LOC: ED 10:00
DX: J06.9 Acute upper respiratory infection, unspecified (principal); I10 Essential (primary) hypertension; E11.9 Type 2 diabetes mellitus without complications; F17.200 Nicotine dependence, unspecified, uncomplicated; Z79.4 Long term (current) use of insulin
CPT/HCPCS: 71046; 87275; 87276; 99284

== ENCOUNTER 2019-08-03 08:36 | Outpatient (CLI) | payer MEDICARE, MEDICAID ==
[2019-08-03 12:30] LABS: ALBUMIN 3.6 g/dL (3.2-5.5); ALBUMIN/GLOBULIN RATIO 0.9 (1.0-2.2); BILIRUBIN,TOTAL 0.3 mg/dL (0.2-1.0); CALCIUM 9.1 mg/dL (8.5-10.3); CREATININE 1.2 mg/dL (0.6-1.2); TOTAL PROTEIN 7.4 g/dL (6.7-8.2)
[2019-08-03 12:34] LABS: HB2 TOTAL 13.1 g/dL; HEMOGLOBIN A1C 0.73 g/dL; HEMOGLOBIN A1C % 7.3 % (4.6-6.2)
== END 2019-08-03 23:59 | disposition home or self-care (01) ==
LOC: LAB.WCP 08:36
PROVIDERS: ATTEND Family Medicine
DX: I10 Essential (primary) hypertension (principal); E11.9 Type 2 diabetes mellitus without complications
CPT/HCPCS: 36415; 80053; 83036

== ENCOUNTER 2019-08-25 08:37 | Outpatient (CLI) | payer MEDICARE, MEDICAID ==
[2019-08-25] MEDS ORDERED: BARIUM SULFATE 148 GM POWDER PO ONE (09:49)
--- NOTE | 2019-08-25 10:15 | XRAY Report ---
Reason: DYSPHAGIA Procedure Date: 08/25/2019 Accession Number: [id number] / [id number] Procedure: FL - Modified Barium Swallow W/SP CPT Code: Final Report FULL RESULT: EXAM: MODIFIED BARIUM SWALLOW EXAM DATE: 08/25/2019 09:48 AM. CLINICAL HISTORY: Dysphagia. COMPARISON: None. TECHNIQUE: Under the direction of speech pathology, patient swallowed various consistencies of barium under lateral fluoroscopic observation of the neck. Fluoroscopy Time: 0.56 minutes. Number of Images: 48. FINDINGS: Swallowing Mechanism: Normal oral phase and swallowing reflex. Airway Protection: Normal epiglottic motion. No episodes of tracheal penetration or aspiration with all consistencies of barium. Pharynx: Normal. No significant vallecular or piriform sinus contrast pooling. Other: None. IMPRESSION: Normal modified barium swallow. No aspiration identified. [facility]
== END 2019-08-25 08:38 | disposition home or self-care (01) ==
LOC: DI 08:37
PROVIDERS: ATTEND Family Medicine
DX: R13.10 Dysphagia, unspecified (principal)
CPT/HCPCS: 74230

== ENCOUNTER 2019-11-02 08:00 | Outpatient (CLI) | payer MEDICARE, MEDICAID ==
[2019-11-02 13:37] LABS: ALBUMIN 4.2 g/dL (3.2-5.5); ALBUMIN/GLOBULIN RATIO 1.2 (1.0-2.2); ALKALINE PHOSPHATASE 66 IU/L (42-121); ALT ALANINE AMINOTRANSFERASE 17 IU/L (10-60); AST ASPARTATE AMINOTRANSFERASE 23 IU/L (10-42); BILIRUBIN,TOTAL 0.4 mg/dL (0.2-1.0); BUN - BLOOD UREA NITROGEN 20 mg/dL (6-20); CALCIUM 9.3 mg/dL (8.5-10.3); CARBON DIOXIDE - CO2 24 mmol/L (21-32); CHLORIDE 104 mmol/L (101-111); CHOL/HDL RATIO 3.5 (<5.0); CHOLESTEROL 121 mg/dL; CREATININE 1.2 mg/dL (0.6-1.2); GLUCOSE 116 mg/dL (70-100); HDL CHOLESTEROL 35 mg/dL; LDL CHOLESTEROL,CALCULATED 71 mg/dL; SODIUM 136 mmol/L (135-145); TOTAL PROTEIN 7.6 g/dL (6.7-8.2); VLDL CHOLESTEROL 15 mg/dL
[2019-11-02 13:49] LABS: HB2 TOTAL 13.7 g/dL; HEMOGLOBIN A1C 0.65 g/dL; HEMOGLOBIN A1C % 6.5 % (4.6-6.2)
== END 2019-11-02 23:59 | disposition home or self-care (01) ==
LOC: LAB.WCP 08:00
PROVIDERS: ATTEND Family Medicine
DX: E11.9 Type 2 diabetes mellitus without complications (principal); Z12.5 Encounter for screening for malignant neoplasm of prostate; I25.10 Atherosclerotic heart disease of native coronary artery without angina pectoris
CPT/HCPCS: 36415; 80053; 80061; 82043; 83036; G0103; 83721; 84153

== ENCOUNTER 2019-11-08 08:00 | Outpatient (CLI) | payer MEDICARE, MEDICAID ==
--- NOTE | 2019-11-09 13:52 | XRAY Report ---
Reason: COPD Procedure Date: 11/08/2019 Accession Number: [id number] / [id number] Procedure: WCP - Chest 2 View X-Ray CPT Code: 47839 Final Report FULL RESULT: EXAM: CHEST RADIOGRAPHY EXAM DATE: 11/08/2019 02:59 PM. CLINICAL HISTORY: COPD. COMPARISON: CHEST 2 VIEW 07/04/2019 11:04 AM CHEST SCREEN LOW DOSE W/O 04/15/2017 11:55 AM CHEST 2 VIEW 07/30/2017 10:46 AM. TECHNIQUE: 2 views. FINDINGS: Lungs/Pleura: Hyperinflation. Peripheral right upper lobe area of chronic interstitial parenchymal changes are again seen without significant change. No pleural effusion. Slight interstitial changes peripheral left upper lobe also present. No pleural effusions or pneumothorax. Mediastinum: Heart size upper normal. Aortic atherosclerosis. Aortic tortuosity. Other: Degenerative changes thoracic spine with changes typically seen with DISH. Healed left rib fracture again seen. IMPRESSION: 1. Hyperinflation. 2. Chronic interstitial changes in predominantly within the right upper lobe without significant change. [facility]
== END 2019-11-08 23:59 | disposition home or self-care (01) ==
LOC: DI.WCP 08:00
PROVIDERS: ATTEND Family Medicine
DX: J44.9 Chronic obstructive pulmonary disease, unspecified (principal)
CPT/HCPCS: 71046

== ENCOUNTER 2019-12-17 08:00 | Outpatient (CLI) | payer MEDICARE, MEDICAID ==
[2019-12-17 18:54] LABS: BASOPHILS # (AUTO) 0.1 10^3/uL (0.0-0.1); BASOPHILS % (AUTO) 0.9 %; EOSINOPHILS # (AUTO) 0.1 10^3/uL (0.0-0.7); EOSINOPHILS % (AUTO) 1.1 %; HGB - HEMOGLOBIN 12.9 g/dL (14.0-18.0); LYMPHOCYTES # (AUTO) 2.8 10^3/uL (1.5-3.5); LYMPHOCYTES % (AUTO) 26.8 %; MEAN CORPUSCULAR HEMOGLOBIN 30.1 pg (27.0-31.0); MEAN CORPUSCULAR VOLUME 91.1 fL (80.0-94.0); MEAN PLATELET VOLUME 8.9 fL (7.4-11.4); MONOCYTES # (AUTO) 0.8 10^3/uL (0.0-1.0); NEUTROPHILS # (AUTO) 6.6 10^3/uL (1.5-6.6); NEUTROPHILS % (AUTO) 62.8 %; PLT - PLATELET COUNT 342 10^3/uL (130-450); RED BLOOD COUNT 4.29 10^6/uL (4.70-6.10); RED CELL DISTRIBUTION WIDTH 13.2 % (12.0-15.0); WHITE BLOOD COUNT 10.5 x10^3/uL (4.8-10.8)
[2019-12-17 19:13] LABS: ALBUMIN 3.7 g/dL (3.2-5.5); ALBUMIN/GLOBULIN RATIO 1.2 (1.0-2.2); BILIRUBIN,TOTAL 0.4 mg/dL (0.2-1.0); CALCIUM 9.2 mg/dL (8.5-10.3); CREATININE 1.3 mg/dL (0.6-1.2); TOTAL PROTEIN 6.8 g/dL (6.7-8.2)
== END 2019-12-17 23:59 | disposition home or self-care (01) ==
LOC: LAB.WCP 08:00
PROVIDERS: ATTEND Family Medicine
DX: I95.1 Orthostatic hypotension (principal); I10 Essential (primary) hypertension
CPT/HCPCS: 36415; 80053; 84443; 85025

== ENCOUNTER 2019-12-22 08:00 | Outpatient (CLI) | payer MEDICARE, MEDICAID ==
[2019-12-22 18:50] LABS: CREATININE 1.4 mg/dL (0.6-1.2)
== END 2019-12-22 23:59 | disposition home or self-care (01) ==
LOC: LAB.WCP 08:00
PROVIDERS: ATTEND Nurse Practitioner Family
DX: E11.9 Type 2 diabetes mellitus without complications (principal)
CPT/HCPCS: 36415; 80048; 82043

== ENCOUNTER 2019-12-30 09:12 | Outpatient (CLI) | payer MEDICARE, MEDICAID ==
[2019-12-30 12:17] LABS: CALCIUM 9.3 mg/dL (8.5-10.3); CREATININE 1.2 mg/dL (0.6-1.2)
== END 2019-12-30 23:59 | disposition home or self-care (01) ==
LOC: LAB.WCP 09:12
PROVIDERS: ATTEND Family Medicine
DX: I10 Essential (primary) hypertension (principal)
CPT/HCPCS: 36415; 80048

== ENCOUNTER 2020-02-23 11:58 | Outpatient (CLI) | payer MEDICARE, MEDICAID ==
[2020-02-23 18:44] LABS: BASOPHILS # (AUTO) 0.1 10^3/uL (0.0-0.1); BASOPHILS % (AUTO) 0.6 %; EOSINOPHILS # (AUTO) 0.1 10^3/uL (0.0-0.7); EOSINOPHILS % (AUTO) 1.2 %; LYMPHOCYTES # (AUTO) 1.3 10^3/uL (1.5-3.5); LYMPHOCYTES % (AUTO) 14.2 %; MEAN CORPUSCULAR HEMOGLOBIN 29.9 pg (27.0-31.0); MEAN CORPUSCULAR HGB CONC 31.9 g/dL (32.0-36.0); MEAN CORPUSCULAR VOLUME 93.5 fL (80.0-94.0); MONOCYTES # (AUTO) 0.8 10^3/uL (0.0-1.0); MONOCYTES % (AUTO) 8.1 %; NEUTROPHILS # (AUTO) 7.1 10^3/uL (1.5-6.6); NEUTROPHILS % (AUTO) 75.5 %; PLT - PLATELET COUNT 299 10^3/uL (130-450); RED BLOOD COUNT 4.02 10^6/uL (4.70-6.10); RED CELL DISTRIBUTION WIDTH 14.1 % (12.0-15.0); WHITE BLOOD COUNT 9.5 x10^3/uL (4.8-10.8)
[2020-02-23 18:54] LABS: MICROALBUM/CREATININE RATIO,UR 44.2 ug/mg (<30.0); MICROALBUMIN,URINE 4.2 mg/dL (0-300.0)
[2020-02-23 19:09] LABS: ALBUMIN 3.6 g/dL (3.2-5.5); ALBUMIN/GLOBULIN RATIO 1.1 (1.0-2.2); ALKALINE PHOSPHATASE 69 IU/L (42-121); ALT ALANINE AMINOTRANSFERASE 16 IU/L (10-60); AST ASPARTATE AMINOTRANSFERASE 19 IU/L (10-42); BILIRUBIN,TOTAL 0.3 mg/dL (0.2-1.0); BUN - BLOOD UREA NITROGEN 34 mg/dL (6-20); CALCIUM 9.2 mg/dL (8.5-10.3); CARBON DIOXIDE - CO2 24 mmol/L (21-32); CHLORIDE 103 mmol/L (101-111); CHOL/HDL RATIO 3.4 (<5.0); CHOLESTEROL 117 mg/dL; CREATININE 1.8 mg/dL (0.6-1.2); GLUCOSE 119 mg/dL (70-100); HDL CHOLESTEROL 34 mg/dL; LDL CHOLESTEROL,CALCULATED 68 mg/dL; SODIUM 137 mmol/L (135-145); TOTAL PROTEIN 6.9 g/dL (6.7-8.2); VLDL CHOLESTEROL 15 mg/dL
[2020-02-23 19:40] LABS: HB2 TOTAL 12.3 g/dL; HEMOGLOBIN A1C 0.67 g/dL; HEMOGLOBIN A1C % 7.1 % (4.6-6.2)
== END 2020-02-23 23:59 | disposition home or self-care (01) ==
LOC: LAB.WCP 11:58
PROVIDERS: ATTEND Family Medicine
DX: E11.9 Type 2 diabetes mellitus without complications (principal); M45.9 Ankylosing spondylitis of unspecified sites in spine
CPT/HCPCS: 36415; 80053; 80061; 82043; 82570; 83036; 83721; 85025; 85651; 86140

== ENCOUNTER 2020-02-23 20:34 | Observation (INO) | payer MEDICARE, MEDICAID ==
--- NOTE | 2020-02-23 20:47 | ED Physician Documentation ---
History of Present Illness - Stated complaint Stated Complaint: HIGH POTASSIUM - History obtained from History obtained from: Patient - Additonal information Additional information: Patient is a 64-year-old male sent to the emergency department after he was informed that he had an abnormal lab value on routine outpatient testing. The patient denies any complaints. He does have hypertension hyperlipidemia and insulin-dependent diabetes but denies any complaints. patient states he does take insulin as well as lisinopril, he is unsure of other medications he takes. Review of Systems Ten Systems: 10 systems reviewed and negative Constitutional: reports: Reviewed and negative Eyes: reports: Reviewed and negative Ears: reports: Reviewed and negative Nose: reports: Reviewed and negative Throat: reports: Reviewed and negative Cardiac: reports: Reviewed and negative Respiratory: reports: Reviewed and negative GI: reports: Reviewed and negative : reports: Reviewed and negative Skin: reports: Reviewed and negative Musculoskeletal: reports: Reviewed and negative Neurologic: reports: Reviewed and negative Psychiatric: reports: Reviewed and negative Endocrine: reports: Reviewed and negative Immunocompromised: reports: Reviewed and negative PD PAST MEDICAL HISTORY - Past Medical History Cardiovascular: Hypertension, High cholesterol Respiratory: COPD Endocrine/Autoimmune: Type 2 diabetes GI: GERD : None HEENT: None Psych: None Musculoskeletal: Osteoarthritis, Chronic back pain Derm: None - Past Surgical History General: Cholecystectomy, Appendectomy Ortho:  HEENT: Tonsil/Adenoidectomy - Present Medications Home Medications: Ambulatory Orders Medication Instructions Recorded Confirmed Cyclobenzaprine HCl 10 mg PO HS 09/10/13 12/28/14 Esomeprazole Magnesium [Nexium] 40 mg PO DAILY 09/10/13 12/28/14 Lorazepam 0.5 mg PO DAILY 09/10/13 12/28/14 Metoclopramide [Reglan] 10 mg PO TID 09/10/13 12/28/14 Naproxen Sodium [Aleve] 220 mg PO BID 09/10/13 12/28/14 Pregabalin [Lyrica] 150 mg PO BID 09/10/13 12/28/14 Sitagliptin Phos/Metformin HCl 1 each PO BID 09/10/13 12/28/14 [Janumet 50-1,000 mg Tablet] Sulfasalazine [Sulfazine] 1,000 mg PO BID 09/10/13 12/28/14 atenoloL [Tenormin] 50 mg PO DAILY 09/10/13 12/28/14 Insulin Detemir [Levemir Flextouch] 23 units SQ BID 07/12/14 12/28/14 Hydrocodone/Acetaminophen 1 tab PO QPM 12/28/14 12/28/14 [Hydrocodon-Acetaminophen 5-325] Atorvastatin [Lipitor] 20 mg PO QPM 02/23/20 02/23/20 Celecoxib 200 mg PO DAILYWM 02/23/20 02/23/[address] [Voltaren] 75 mg PO DAILY 02/23/20 02/23/20 Varenicline Tartrate [Chantix] 1 mg PO DAILY 02/23/20 02/23/20 - Allergies Allergies/Adverse Reactions: Allergies Allergy/AdvReac Type Severity Reaction Status Date / Time No Known Drug Allergies Allergy Verified 02/23/20 20:48 - Social History Smoking Status: Current every day smoker PD ED PE NORMAL - Vitals Vital signs reviewed: Yes - General General: Alert and oriented X 3, No acute distress - HEENT HEENT: PERRL - Neck Neck: Supple, no meningeal sign - Cardiac Cardiac: RRR, No murmur - Respiratory Respiratory: Clear bilaterally - Abdomen Abdomen: Normal bowel sounds, Soft, Non tender, Non distended - Derm Derm: Warm and dry - Extremities Extremities: No deformity - Neuro Neuro: Alert and oriented X 3 - Psych Psych: Normal mood, Normal affect Results - Vitals Vitals: Vital Signs - 24 hr 02/23/20 20:35 Temperature 36.4 C L Heart Rate 92 Respiratory 22 Rate Blood Pressure 165/93 H O2 Saturation 99 Oxygen O2 Source Room air - EKG (time done) 00:00 Rate: Other (no stemi, no peaked t waves.) - Labs Labs: Laboratory Tests 02/23/20 02/23/20 02/23/20 19:15 19:15 19:15 WBC RBC Hgb Hct MCV MCH MCHC RDW Plt Count MPV Neut # (Auto) Lymph # (Auto) Jones # (Auto) Eos # (Auto) Baso # (Auto) Absolute Nucleated RBC Nucleated RBC % PT 11.9 INR 1.0 APTT 28.4 Sodium Potassium Chloride Carbon Dioxide Anion Gap BUN Creatinine Estimated GFR (MDRD) Glucose Lactic Acid Calcium Phosphorus 4.3 Magnesium 1.5 L Total Creatine Kinase 221 Troponin I High Sens B-Natriuretic Peptide 82 TSH Urine Color Urine Clarity Urine pH Ur Specific [place] Urine Protein Urine Glucose (UA) Urine Ketones Urine Occult Blood Urine Nitrite Urine Bilirubin Urine Urobilinogen Ur Leukocyte Esterase Urine RBC Urine WBC Ur Squamous Epith Cells Urine Bacteria Ur Microscopic Review Urine Culture Comments Salicylates < 6.0 Urine Opiates Screen Ur Oxycodone Screen Urine Methadone Screen Ur Propoxyphene Screen Acetaminophen < 10 L Ur Barbiturates Screen Ur Tricyclics Screen Ur Phencyclidine Scrn Ur Amphetamine Screen U Methamphetamines Scrn U Benzodiazepines Scrn Urine Cocaine Screen U Cannabinoids Screen Ethyl Alcohol < 5.0 02/23/20 02/23/20 02/23/20 19:15 19:15 19:15 WBC RBC Hgb Hct MCV MCH MCHC RDW Plt Count MPV Neut # (Auto) Lymph # (Auto) Jones # (Auto) Eos # (Auto) Baso # (Auto) Absolute Nucleated RBC Nucleated RBC % PT INR APTT Sodium Potassium Chloride Carbon Dioxide Anion Gap BUN Creatinine Estimated GFR (MDRD) Glucose Lactic Acid 1.1 Calcium Phosphorus Magnesium Total Creatine Kinase Troponin I High Sens 10.6 B-Natriuretic Peptide TSH 1.84 Urine Color Urine Clarity Urine pH Ur Specific [place] Urine Protein Urine Glucose (UA) Urine Ketones Urine Occult Blood Urine Nitrite Urine Bilirubin Urine Urobilinogen Ur Leukocyte Esterase Urine RBC Urine WBC Ur Squamous Epith Cells Urine Bacteria Ur Microscopic Review Urine Culture Comments Salicylates Urine Opiates Screen Ur Oxycodone Screen Urine Methadone Screen Ur Propoxyphene Screen Acetaminophen Ur Barbiturates Screen Ur Tricyclics Screen Ur Phencyclidine Scrn Ur Amphetamine Screen U Methamphetamines Scrn U Benzodiazepines Scrn Urine Cocaine Screen U Cannabinoids Screen Ethyl Alcohol 02/23/20 02/23/20 02/23/20 20:50 20:50 22:14 WBC 8.8 RBC 3.73 L Hgb 11.1 L Hct 34.3 L MCV 92.0 MCH 29.8 MCHC 32.4 RDW 13.9 Plt Count 250 MPV 8.4 Neut # (Auto) 5.6 Lymph # (Auto) 2.0 Jones # (Auto) 0.8 Eos # (Auto) 0.2 Baso # (Auto) 0.1 Absolute Nucleated RBC 0.00 Nucleated RBC % 0.0 PT INR APTT Sodium 139 Potassium 5.3 H Chloride 104 Carbon Dioxide 20 L Anion Gap 15.0 H BUN 35 H Creatinine 1.9 H Estimated GFR (MDRD) 36 L Glucose 117 H Lactic Acid Calcium 9.1 Phosphorus Magnesium Total Creatine Kinase Troponin I High Sens B-Natriuretic Peptide TSH Urine Color YELLOW Urine Clarity CLEAR Urine pH 6.0 Ur Specific [place] 1.015 Urine Protein NEGATIVE Urine Glucose (UA) 100 H Urine Ketones NEGATIVE Urine Occult Blood SMALL H Urine Nitrite NEGATIVE Urine Bilirubin NEGATIVE Urine Urobilinogen 0.2 (NORMAL) Ur Leukocyte Esterase NEGATIVE Urine RBC 6-10 H Urine WBC 0-3 Ur Squamous Epith Cells RARE Squamous Urine Bacteria None Seen Ur Microscopic Review INDICATED Urine Culture Comments NOT INDICATED Salicylates Urine Opiates Screen NEGATIVE Ur Oxycodone Screen NEGATIVE Urine Methadone Screen NEGATIVE Ur Propoxyphene Screen NEGATIVE Acetaminophen Ur Barbiturates Screen NEGATIVE Ur Tricyclics Screen NEGATIVE Ur Phencyclidine Scrn NEGATIVE Ur Amphetamine Screen NEGATIVE U Methamphetamines Scrn NEGATIVE U Benzodiazepines Scrn NEGATIVE Urine Cocaine Screen NEGATIVE U Cannabinoids Screen NEGATIVE Ethyl Alcohol PD MEDICAL DECISION MAKING - ED course Complexity details: reviewed results, re-evaluated patient, considered differential (acute kidney injury, hyperkalemia. ), d/w patient, d/w family, d/w protection consultant - Consults Consults: Discussed case with (dr. stern. will admit for obsevation.) Departure - Departure Disposition: ED Place in Observation Clinical Impression: Acute kidney injury, Hyperkalemia Condition: Stable Discharge Date/Time: 02/24/20 00:10
[2020-02-23 20:53] LABS: BASOPHILS # (AUTO) 0.1 10^3/uL (0.0-0.1); BASOPHILS % (AUTO) 0.8 %; EOSINOPHILS # (AUTO) 0.2 10^3/uL (0.0-0.7); EOSINOPHILS % (AUTO) 2.1 %; HGB - HEMOGLOBIN 11.1 g/dL (14.0-18.0); LYMPHOCYTES % (AUTO) 23.1 %; MEAN CORPUSCULAR HEMOGLOBIN 29.8 pg (27.0-31.0); MEAN CORPUSCULAR HGB CONC 32.4 g/dL (32.0-36.0); MEAN PLATELET VOLUME 8.4 fL (7.4-11.4); MONOCYTES # (AUTO) 0.8 10^3/uL (0.0-1.0); MONOCYTES % (AUTO) 9.5 %; NEUTROPHILS # (AUTO) 5.6 10^3/uL (1.5-6.6); NEUTROPHILS % (AUTO) 63.9 %; PLT - PLATELET COUNT 250 10^3/uL (130-450); RED BLOOD COUNT 3.73 10^6/uL (4.70-6.10); RED CELL DISTRIBUTION WIDTH 13.9 % (12.0-15.0); WHITE BLOOD COUNT 8.8 x10^3/uL (4.8-10.8)
[2020-02-23 21:02] LABS: CALCIUM 9.1 mg/dL (8.5-10.3); CREATININE 1.9 mg/dL (0.6-1.2)
[2020-02-23] MEDS ORDERED: SODIUM CHLORIDE 0.9% 1,000 ML IV STA (21:10)
[2020-02-23 21:28] LABS: PT - PROTHROMBIN TIME 11.9 secs (9.9-12.6)
[2020-02-23 21:35] LABS: ACETAMINOPHEN < 10 ug/mL (10-30); CK- CREATINE KINASE 221 IU/L (22-269); MAGNESIUM 1.5 mg/dL (1.7-2.8); PHOSPHORUS 4.3 mg/dL (2.5-4.6); SALICYLATE < 6.0 mg/dL
[2020-02-23 21:36] LABS: PARTIAL THROMBOPLASTIN TIME 28.4 secs (24.9-33.3)
--- NOTE | 2020-02-23 21:42 | XRAY Report ---
PROCEDURE: Chest 1 View X-Ray INDICATIONS: weakness TECHNIQUE: One view of the chest was acquired. COMPARISON: 11/08/2019 FINDINGS: Surgical changes and devices: None. Lungs and pleura: No pleural effusions or pneumothorax. There is no focal infiltrate. Chronic inters titial changes predominantly within right upper lobe is again seen and unchanged. Mediastinum: Mediastinal contours appear normal. Heart size is normal. Bones and chest wall: No suspicious bony lesions. Overlying soft tissues appear unremarkable. IMPRESSION: No acute cardiac pulmonary pathology. No significant changes from prior study. Reviewed by: Porfirio Oneal MD on 02/23/2020 9:41 PM PDT Approved by: Porfirio Oneal MD on 02/23/2020 9:41 PM PDT Station ID: [id number]
[2020-02-23 22:29] LABS: MUDS CUTOFF CONCENTRATIONS CUTOFF CONC BELOW:
[2020-02-23 22:36] LABS: BILIRUBIN,URINE NEGATIVE (NEGATIVE); GLUCOSE, URINE (UA) 100 mg/dL (NEGATIVE); KETONES,URINE (UA) NEGATIVE (NEGATIVE); LEUKOCYTE ESTERASE, URINE NEGATIVE (NEGATIVE); NITRITE,URINE NEGATIVE (NEGATIVE); OCCULT BLOOD,URINE SMALL (NEGATIVE); PROTEIN,URINE NEGATIVE (NEGATIVE); UROBILINOGEN,URINE 0.2 (NORMAL) E.U./dL (NORMAL)
[2020-02-23] MEDS ORDERED: ONDANSETRON 4 MG/2 ML VIAL IVP PRN (22:42)
[2020-02-23] MEDS ORDERED: SODIUM CHLORIDE FLUSH 0.9% 10 ML SYRINGE IVP PRN (22:42)
[2020-02-23] MEDS ORDERED: LACTATED RINGERS 1,000 ML IV ONE (22:44)
[2020-02-23 22:47] LABS: CLARITY,URINE CLEAR (CLEAR)
[2020-02-23 22:48] LABS: AMPHETAMINE SCREEN,URINE NEGATIVE (NEGATIVE); BACTERIA,URINE None Seen /HPF (None Seen); BENZODIAZEPINES SCREEN, URINE NEGATIVE (NEGATIVE); COCAINE SCREEN URINE NEGATIVE (NEGATIVE); METHADONE SCREEN, URINE NEGATIVE (NEGATIVE); METHAMPHETAMINES SCREEN, URINE NEGATIVE (NEGATIVE); OPIATE SCREEN, URINE NEGATIVE (NEGATIVE); OXYCODONE SCREEN, URINE NEGATIVE (NEGATIVE); SQUAMOUS EPITHELIAL CELL,UR RARE Squamous (<= Few); TRICYCLIC ANTIDEPRESSANT,URINE NEGATIVE (NEGATIVE)
[2020-02-23 22:49] LABS: PROPOXYPHENE SCREEN, URINE NEGATIVE (NEGATIVE)
--- NOTE | 2020-02-23 22:49 | HISTORY & PHYSICAL EXAMINATION ---
Chief Complaint - Chief Complaint Chief Complaint: Abnormal labs History of Present Illness - Admitted From Admitted From:: Home - History Obtained From Records Reviewed: Yes History obtained from: Patient, ER Physician, EMR - History of Present Illness HPI Comment/Other: This is a 65-year-old male with a past medical history significant for rheumat oid arthritis, ankylosing spondylitis, coronary artery disease, type 2 diabetes mellitus treated with insulin, hypertension who presents today after he had routine labs on outpatient basis that revealed an elevated creatinine and potassium. He was referred to the emergency department by the on-call nurse for further evaluation. He reports he is doing well overall and has no acute complaints at this time. He saw his refractory technician today who had ordered some routine labs for his rheumatoid arthritis. He is currently not on any DMARDs as he did not have a response to Humira. He currently takes Voltaren on a daily basis after Celebrex was discontinued. He also takes lisinopril on a daily b asis. He reports adequate oral intake over the past few days but he does report feeling thirsty and having a dry mouth at this time. Except for his usual arthritic pain, he denies any dyspnea, chest pain, abdominal pain, nausea, vomiting. He denies any recent medication changes. In the emergency department, repeat labs showed his potassium had improved to 5.3 but remained elevated. His creatinine remained elevated at 1.9 compared to baseline of 1.2. His bicarbonate was slightly decreased at 20. CKs are within normal limits. Given his acute kidney injury and hyperkalemia, medicine was c onsulted for admission. He did receive 1 L of normal saline in the emergency department. History - Past Medical History Cardiovascular: reports: Hypertension, High cholesterol, Coronary artery disease Respiratory: reports: COPD Endocrine/Autoimmune: reports: Type 2 diabetes GI: reports: GERD : reports: None HEENT: reports: None Psych: reports: None Musculoskeletal: reports: Osteoarthritis, Fibromyalgia, Rheumatoid arthritis, Chronic back pain, Other (Ankylosing spondylitis.) Derm: reports: None MRSA Hx?: Yes - Past Surgical History General: reports: Cholecystectomy, Appendectomy Ortho: reports: Arthroscopic surgery HEENT: reports: Tonsil/Adenoidectomy - Family & Social History Family History Comment/Other: He reports his father had a history of coronary artery disease as well as diabetes. His mother also had diabetes. Living arrangement: At home Living Situation: With family Social History Notes: He lives at home with his brother. He has been on disability since the 90s due to his arthritis. He has been smoking a pack a day for about 15 to 20 years but has been decreasing the amount he is smoking as he is on Chantix. Reports occasional alcohol use. Meds/Allgy - Home Medications Home Medications: Ambulatory Orders Medication Instructions Recorded Confirmed Cyclobenzaprine HCl 10 mg PO HS 09/10/13 12/28/14 Esomeprazole Magnesium [Nexium] 40 mg PO DAILY 09/10/13 12/28/14 Lorazepam 0.5 mg PO DAILY 09/10/13 12/28/14 Metoclopramide [Reglan] 10 mg PO TID 09/10/13 12/28/14 Naproxen Sodium [Aleve] 220 mg PO BID 09/10/13 12/28/14 Pregabalin [Lyrica] 150 mg PO BID 09/10/13 12/28/14 Sitagliptin Phos/Metformin HCl 1 each PO BID 09/10/13 12/28/14 [Janumet 50-1,000 mg Tablet] Sulfasalazine [Sulfazine] 1,000 mg PO BID 09/10/13 12/28/14 atenoloL [Tenormin] 50 mg PO DAILY 09/10/13 12/28/14 Insulin Detemir [Levemir Flextouch] 23 units SQ BID 07/12/14 12/28/14 Hydrocodone/Acetaminophen 1 tab PO QPM 12/28/14 12/28/14 [Hydrocodon-Acetaminophen 5-325] Atorvastatin [Lipitor] 20 mg PO QPM 02/23/20 02/23/20 Celecoxib 200 mg PO DAILYWM 02/23/20 02/23/[address] [Voltaren] 75 mg PO DAILY 02/23/20 02/23/20 Varenicline Tartrate [Chantix] 1 mg PO DAILY 02/23/20 02/23/20 - Allergies Allergies/Adverse Reactions: Allergies Allergy/AdvReac Type Severity Reaction Status Date / Time No Known Drug Allergies Allergy Verified 02/23/20 20:48 Review of Systems - Constitutional Constitutional: denies: Fatigue, Fever, Chills, Weakness, Poor appetite - Ears, Nose & Throat Ears, Nose & Throat: denies: Nasal discharge, Nasal congestion - Cardiovascular Cariovascular: denies: Chest pain, Exertional dyspnea, Decr. exercise tolerance - Respiratory Respiratory: denies: Cough, SOB at rest, SOB with exertion - Gastrointestinal Gastrointestinal: denies: Abdominal pain, Nausea, Vomiting - Genitourinary Genitourinary: denies: Dysuria, Frequency, Urgency - Musculoskeletal Musculoskeletal: reports: Back pain, Muscle aches, Joint pain - Integumentary Integumentary: denies: Rash - Neurological Neurological: denies: General weakness, Focal weakness, Numbness - All Other Systems All Other Systems: reports: Reviewed and negative Prior Level of Functionality: He is independent with his ADL's. Exam - Vital Signs Reviewed Vital Signs: Yes Vital Signs: Vital Signs x48h Temp Pulse Resp BP Pulse Ox 02/23/20 20:35 36.4 C L 92 22 165/93 H 99 - Physical Exam General Appearance: positive: No acute distress, Alert Eyes Bilateral: positive: Normal inspection ENT: positive: ENT inspection nml, Dry mucous membranes. negative: No signs of dehydration Neck: positive: Nml inspection Respiratory: positive: No respiratory distress. negative: Wheezes, Rales Cardiovascular: positive: Regular rate & rhythm, No murmur. negative: Tachycardia, Bradycardia, Systolic murmur Abdomen: positive: Non-tender, No distention. negative: Tenderness, Guarding, Rebound Skin: positive: No rash, Warm, Dry Extremities: positive: Full ROM, Nml appearance, No pedal edema Neurologic/Psychiatric: positive: Motor nml. negative: Disoriented to person, Disoriented to place, Disoriented to time Conclusion/Plan - Problem List (1) Acute kidney injury Conclusion/Plan: This is likely multifactorial and secondary to the use of NSAIDs in a patient who has CKD secondary to diabetes as well as dehydration. He also takes lisinopril at home. His creatinine is elevated at 1.9 compared to his baseline of 1.2. We will give another liter of lactated Ringer's and continue him on IV maintenance fluids. Recheck renal function in the morning. Avoid NSAIDs. Hold lisinopril. If his renal function does not improve with IV fluids then will obtain a renal ultrasound for further evaluation. (2) Hyperkalemia Conclusion/Plan: His potassium was elevated at greater than 6 and this has improved to 5.3 without any intervention. This is likely due to his acute kidney injury as well as the use of lisinopril. We will treat his acute kidney injury with IV fluids and hold lisinopril. Recheck potassium in the morning. (3) Type 2 diabetes mellitus treated with insulin Conclusion/Plan: His A1c 7.1%. His blood glucose currently well controlled. We will continue his home insulin regimen and place him on sliding scale. Carb controlled diet. (4) Hypertension Conclusion/Plan: His blood pressure is currently elevated with systolic in the 160s. We will resume his home medication except for lisinopril given the acute kidney injury. We will continue to monitor this closely. (5) Coronary artery disease Conclusion/Plan: He reports a history of coronary artery disease with no stenting or CABG. This is being medically managed. He scheduled to follow-up with Dr. Hightower tomorrow at the [facility]. Continue his home medications. (6) Fibromyalgia Conclusion/Plan: Resume home Lyrica once dose is confirmed by pharmacy. (7) Rheumatoid arthritis Conclusion/Plan: Stable. He is no longer on any DMARDs. He takes Voltaren and NSAID only. He will continue outpatient follow-up with his refractory technician. - Lab Results Lab results reviewed: Yes Fish Bones: 02/23/20 20:50 02/23/20 20:50 - Diagnostic Imaging Results Diagnostic Imaging Results: positive: Final report reviewed - EKG Results EKG Interpreted Independently: Yes EKG Findings: EKG shows sinus rhythm without any ST segment changes. The NH interval and QRS are within normal limits. Core Measures - Anticipated LOS I expect patient to be DC'd or transferred within 96 hours.: Yes - Issues Hospital Issues and Management Plan: 64-year-old male who had abnormal routine labs on outpatient basis found to have hyperkalemia and acute kidney injury. Repeat labs here showed potassium has improved but creatinine remains elevated. Will place in observation for IV fluids and monitoring of labs. - DVT/VTE - Prophylaxis VTE/DVT Device ordered at admit?: Yes VTE/DVT Prophylaxis med ordered at admit?: No Not Ordered - Medical Reason: Not indicated
[2020-02-23] MEDS ORDERED: MAGNESIUM OXIDE 400 MG TABLET PO ONE (23:00)
[2020-02-24] MEDS: SODIUM CHLORIDE FLUSH 0.9% 10 ML SYRINGE IVP SCH ×2 (00:16→09:09)
[2020-02-24] MEDS: LACTATED RINGERS 1,000 ML IV SCH ×2 (01:31→09:00)
[2020-02-24] MEDS: ACETAMINOPHEN 325 MG TABLET PO PRN ×3 (01:47→09:58)
[2020-02-24 05:10] LABS: BASOPHILS # (AUTO) 0.1 10^3/uL (0.0-0.1); BASOPHILS % (AUTO) 0.8 %; EOSINOPHILS # (AUTO) 0.2 10^3/uL (0.0-0.7); EOSINOPHILS % (AUTO) 2.8 %; LYMPHOCYTES # (AUTO) 1.6 10^3/uL (1.5-3.5); LYMPHOCYTES % (AUTO) 20.6 %; MEAN CORPUSCULAR HEMOGLOBIN 28.7 pg (27.0-31.0); MEAN CORPUSCULAR HGB CONC 31.2 g/dL (32.0-36.0); MEAN CORPUSCULAR VOLUME 92.2 fL (80.0-94.0); MEAN PLATELET VOLUME 8.6 fL (7.4-11.4); MONOCYTES # (AUTO) 0.7 10^3/uL (0.0-1.0); MONOCYTES % (AUTO) 8.4 %; NEUTROPHILS # (AUTO) 5.3 10^3/uL (1.5-6.6); PLT - PLATELET COUNT 258 10^3/uL (130-450); RED BLOOD COUNT 3.83 10^6/uL (4.70-6.10)
[2020-02-24 05:20] LABS: CALCIUM 9.3 mg/dL (8.5-10.3); CREATININE 1.6 mg/dL (0.6-1.2); MAGNESIUM 1.6 mg/dL (1.7-2.8); PHOSPHORUS 4.4 mg/dL (2.5-4.6)
[2020-02-24] MEDS ORDERED: MAGNESIUM SULFATE 2 GRAM 2 GM/50 ML BAG IV ONE (07:34)
[2020-02-24] MEDS ORDERED: MAGNESIUM OXIDE 400 MG TABLET PO SCH (08:00)
[2020-02-24] MEDS: INSULIN ASPART 300 UNIT/3 ML PEN SUBQ SCH ×2 (08:48→12:14)
[2020-02-24] MEDS ORDERED: INSULIN GLARGINE 300 UNIT/3 ML PEN SUBQ SCH (09:00)
[2020-02-24] MEDS: PREGABALIN 100 MG CAPSULE PO SCH ×2 (09:55→14:19)
[2020-02-24] MEDS: HYDROcod/ACETAM 5/325 MG TABLET PO PRN ×2 (12:14→16:17)
[2020-02-24] MEDS ORDERED: METOPROLOL TARTRATE 25 MG TABLET PO SCH (14:14)
[2020-02-24] MEDS ORDERED: hydrALAZINE INJ 20 MG/ML VIAL IVP PRN (14:15)
[2020-02-24 14:18] LABS: CALCIUM 9.2 mg/dL (8.5-10.3); CREATININE 1.5 mg/dL (0.6-1.2)
--- NOTE | 2020-02-24 15:38 | Discharge Plan ---
Discharge Plan Problem Reviewed?: Yes Disposition: Home, Self Care Condition: Stable Diet: Diabetic Activity Restrictions: Activity as Tolerated Shower Restrictions: No (fall precaution) Instruction Topics: Dehydration, Hyperkalemia Dc, Diet Low Potassium Dc Health Concerns: dehydration and hyperkalemia Plan of Treatment: keep hydration in home, avoid NSAIS for remain of your kidney function to work well, your home Diclofenac is holding now. advise you followup with your PCP to have blood work to check potassium level in one week. Your potassium level is normal now. Care Goals: stabilization and improvement of your medical conditions. Assessment: discussed the care plan with you, you understood. Additional Instructions or Follow Up instructions: you may followup with your PCP in one week, and have blood work to have potassium level check in one week. should your symptoms return or worsen, you may present ER or call 911 for help. No Smoking: If you smoke, Please STOP! Call for help. Follow-up with: Nya Tee DO [Primary Care Provider] -
[2020-02-24 15:41] VITALS: BP 167/87
--- NOTE | 2020-02-24 15:48 | DISCHARGE SUMMARY ---
Discharge Summary Admit Date: 02/23/20 Discharge Date: 02/24/20 Discharging Provider: Wally Gates Primary Care Provider: Dr. Beatriz Tee Condition at Discharge: Stable Discharge Disposition: 01 Home, Self Care Discharge Facility Name: home - DIAGNOSES Discharge Diagnoses with Status of Each Condition: (1) Acute kidney injury creatinine is closed to pt's baseline. pt is advised to keep hydration in home and followup with homebound teacher as needed as out-pt setting. (2) Hyperkalemia resolved (3) Type 2 diabetes mellitus treated with insulin stable (4) Hypertension stable, followup with PCP continue management. pt did not have lisinopril in his home meds (5) Coronary artery disease stable (6) Fibromyalgia stable. (7) Rheumatoid arthritis stable. pt is prescribed Vandergrift for his pain control PRN. pt's NAIDS is hold now for his SANDRINE - HPI History of Present Illness: refer from Dr. Curiel's HPI on 02/23/2020 This is a 65-year-old male with a past medical history significant for rheumatoid arthritis, ankylosing spondylitis, coronary artery disease, type 2 diabetes mellitus treated with insulin, hypertension who presents today after he had routine labs on outpatient basis that revealed an elevated creatinine and potassium. He was referred to the emergency department by the on-call nurse for further evaluation. He reports he is doing well overall and has no acute complaints at this time. He saw his bingo floater today who had ordered some routine labs for his rheumatoid arthritis. He is currently not on any DMARDs as he did not have a response to Humira. He currently takes Voltaren on a daily basis after Celebrex was discontinued. He also takes lisinopril on a daily basis. He reports adequate oral intake over the past few days but he does report feeling thirsty and having a dry mouth at this time. Except for his usual arthritic pain, he denies any dyspnea, chest pain, abdominal pain, nausea, vomiting. He denies any recent medication changes. In the emergency department, repeat labs showed his potassium had improved to 5.3 but remained elevated. His creatinine remained elevated at 1.9 compared to baseline of 1.2. His bicarbonate was slightly decreased at 20. CKs are within normal limits. Given his acute kidney injury and hyperkalemia, medicine was consulted for admission. He did receive 1 L of normal saline in the emergency department. - HOSPITAL COURSE Hospital Course: Patient was admitted for abnormal lab test including SANDRINE and hyperkalemia in his PCP office. It is likely caused by patient dehydration. Patient will be given hydration by intravenous IV fluids. Patient's hyperkalemia was resolved. Patient's creatinine is close to his baseline. He has no other complaints. Patient has a history of rheumatoid arthritis. Patient's home medication NAIDS is hold for patient SANDRINE and instead, patient is prescribed short-term pain medication norco. Patient is advised to keep hydration in the home and recheck BMP blood work when he see his PCP in 1 week. - ALLERGIES Allergies/Adverse Reactions: Allergies Allergy/AdvReac Type Severity Reaction Status Date / Time No Known Drug Allergies Allergy Verified 02/23/20 20:48 - MEDICATIONS Home Medications: Ambulatory Orders Medication Instructions Recorded Confirmed Esomeprazole Magnesium [Nexium] 40 mg PO DAILY 09/10/13 02/24/20 Lorazepam 0.5 mg PO DAILY 09/10/13 02/24/20 Metoclopramide [Reglan] 10 mg PO TID 09/10/13 02/24/20 Pregabalin [Lyrica] 150 mg PO BID 09/10/13 02/24/20 Sitagliptin Phos/Metformin HCl 1 each PO BID 09/10/13 02/24/20 [Janumet 50-1,000 mg Tablet] Insulin Detemir [Levemir Flextouch] 0 units SQ BID 07/12/14 02/24/20 Atorvastatin [Lipitor] 20 mg PO QPM 02/23/20 02/23/20 Varenicline Tartrate [Chantix] 1 mg PO BID 02/23/20 02/24/20 Acetaminophen [Tylenol Extra 500 mg PO PRN PRN MDD 3000 MG 02/24/20 02/24/20 Strength] HYDROcod/ACETAM 5/325 [Vandergrift 5/325] 1 ea PO Q6H PRN #15 tablet 02/24/20 Metformin HCl 1,000 mg pe PO BID 02/24/20 02/24/20 Metoprolol Tartrate 25 mg PO BID 02/24/20 02/24/20 - PHYSICAL EXAM AT DISCHARGE General Appearance: positive: No acute distress, Alert. negative: Lethargic Eyes Bilateral: positive: Normal inspection, PERRL, No lid inflammation ENT: positive: ENT inspection nml, Pharynx nml, No signs of dehydration. negative: Purulent nasal drainage Neck: positive: Nml inspection, Thyroid nml, No JVD, Trachea midline. negative: Thyromegaly, Stiff neck, Tracheal deviation Respiratory: positive: Chest non-tender, No respiratory distress. negative: Wheezes, Rales, Rhonchi Cardiovascular: positive: Regular rate & rhythm, No murmur. negative: Ta chycardia, Bradycardia, Systolic murmur, Diastolic murmur Peripheral Pulses: positive: 2+ Abdomen: positive: Non-tender, No organomegaly, Nml bowel sounds. negative: Tenderness, Guarding, Rebound Back: positive: Nml inspection. negative: CVA tenderness (R), CVA tenderness (L) Skin: positive: Color nml, No rash, Warm, Dry. negative: Cyanosis, Diaphoresis, Pallor Extremities: positive: Non-tender, Full ROM, Nml appearance. negative: Calf tenderness, Pilar's sign/cords Neurologic/Psychiatric: positive: Oriented x3, Motor nml, Sensation nml, Mo od/affect nml. negative: Weakness, Sensory loss, Facial droop, Slurred/abnml speech, Depressed mood/affect - LABS Result Diagrams: 02/24/20 04:45 02/24/20 14:02 - FOLLOW UP Follow Up: keep hydration in home, avoid NSAIS for remain of your kidney function to work well, your home Diclofenac is holding now. advise you followup with your PCP to have blood work to check potassium level in one week. Your potassium level is normal now. you may followup with your PCP in one week. should your symptoms return or worsen, you may present ER or call 911 for help. Patient is advised to keep hydration in the home and recheck BMP blood work when he see his PCP in 1 week. - TIME SPENT Time Spent in Discharge (Minutes): 30
--- NOTE | 2020-02-24 16:11 | PHARMACY PROGRESS NOTE ---
- Best Possible Medication History Admit Date and Time: 02/23/20 8172 Processed by: Pharmacy (MED REC PROCESSED BY BOTH PHARMACY & NURSING. SOME MEDS WERE CONFIRMED BY RN, SOME BY RX) Medication History completed: Yes Patient Interview: Completed Secondary Source(s): Physician records, Pharmacy records As the person ultimately responsible for medication therapy, providers are able to order a medication from an existing home medication list in [facility] via the "Reconcile Routine" prior to Confirmation of that medication by ict support technicians. Such practice is discouraged except when the physician, in their clinical judgment, deems that a medical need exists for a medication without regard to previous use.
[2020-02-24] MEDS ORDERED: BUDESONIDE 0.5 MG/2 ML NEB INH SCH (19:00)
[2020-02-24] MEDS ORDERED: FORMOTEROL FUMARATE NEB 20 MCG/2 ML INH SCH (19:00)
[2020-02-24 19:19] LABS: HEMOGLOBIN A1c% 7.4 % (4.27-6.07)
[2020-02-25] MEDS ORDERED: DICLOFENAC SODIUM DR 75 MG TABLET PO SCH (09:00)
== END 2020-02-24 17:08 | disposition home or self-care (01) ==
LOC: ED 20:34 → MS2 22:42
PROVIDERS: ADMIT Internal Medicine; ATTEND Internal Medicine
DX: N17.9 Acute kidney failure, unspecified (principal); E87.5 Hyperkalemia; E11.9 Type 2 diabetes mellitus without complications; Z79.4 Long term (current) use of insulin; I25.10 Atherosclerotic heart disease of native coronary artery without angina pectoris; I10 Essential (primary) hypertension; M79.7 Fibromyalgia; M06.9 Rheumatoid arthritis, unspecified; M45.9 Ankylosing spondylitis of unspecified sites in spine; Z79.1 Long term (current) use of non-steroidal anti-inflammatories (NSAID); G89.29 Other chronic pain; F17.210 Nicotine dependence, cigarettes, uncomplicated; Z79.891 Long term (current) use of opiate analgesic; Z79.899 Other long term (current) drug therapy
CPT/HCPCS: 36415; 71045; 80048; 80053; 80061; 81001; 82043; 82550; 82570; 83036; 83605; 83735; 83880; 84100; 84443; 84484; 85025; 85610; 85651; 85730; 86140; 93005; 96360; 96361; 99283; 99285; A9270; G0378; J1815; J7120; 80306; 80307; 80320; 80329; 81003; 83721; 87086

== ENCOUNTER → 2020-03-01 | Outpatient (CLI) | payer MEDICARE, MEDICAID ==
[2020-03-01 18:50] LABS: CALCIUM 9.2 mg/dL (8.5-10.3); CREATININE 1.5 mg/dL (0.6-1.2)
== END ==
LOC: LAB.WCP 08:00
PROVIDERS: ATTEND Family Medicine
DX: E87.5 Hyperkalemia (principal)
CPT/HCPCS: 36415; 80048

== ENCOUNTER 2020-04-17 08:47 | Outpatient (CLI) | payer MEDICARE, MEDICAID ==
--- NOTE | 2020-04-18 15:45 | XRAY Report ---
PROCEDURE: Pelvis 1 View INDICATIONS: BILATERAL HIP JOINT PAIN TECHNIQUE: Single AP view(s) of the pelvis acquired. COMPARISON: None. FINDINGS: Bones: No fractures or dislocations. No suspicious bony lesions. There are degenerative changes of the bilateral femoroacetabular joints more prominent on the right side. Lower lumbar spondylosis. Soft tissues: Visualized bowel gas pattern is normal. No suspicious soft tissue calcifications. IMPRESSION: 1. Bilateral hip osteoarthrosis more pronounced on the right. 2. Lower lumbar spondylosis. Reviewed by: Alex Bryson MD on 04/18/2020 3:44 PM PDT Approved by: Alex Bryson MD on 04/18/2020 3:44 PM PDT Station ID: [id number]
== END 2020-04-17 08:48 | disposition home or self-care (01) ==
LOC: DI 08:47
PROVIDERS: ATTEND Physician Assistant
DX: M16.0 Bilateral primary osteoarthritis of hip (principal); M47.816 Spondylosis without myelopathy or radiculopathy, lumbar region
CPT/HCPCS: 72170

== ENCOUNTER 2020-05-11 10:43 | Outpatient (CLI) | payer MEDICARE, MEDICAID | END 2020-05-11 10:44 | disposition home or self-care (01) | LOC: RT 10:43 | PROVIDERS: ATTEND Internal Medicine Cardiovascular Disease | DX: R07.89 Other chest pain (principal); I25.10 Atherosclerotic heart disease of native coronary artery without angina pectoris | CPT/HCPCS: 93005 ==

== ENCOUNTER 2020-06-07 08:00 | Outpatient (CLI) | payer MEDICARE, MEDICAID ==
[2020-06-07 12:59] LABS: BASOPHILS # (AUTO) 0.1 10^3/uL (0.0-0.1); BASOPHILS % (AUTO) 0.4 %; EOSINOPHILS # (AUTO) 0.1 10^3/uL (0.0-0.7); EOSINOPHILS % (AUTO) 0.4 %; LYMPHOCYTES # (AUTO) 1.5 10^3/uL (1.5-3.5); LYMPHOCYTES % (AUTO) 7.8 %; MEAN CORPUSCULAR HEMOGLOBIN 28.1 pg (27.0-31.0); MEAN CORPUSCULAR HGB CONC 30.7 g/dL (32.0-36.0); MEAN CORPUSCULAR VOLUME 91.6 fL (80.0-94.0); MEAN PLATELET VOLUME 9.4 fL (7.4-11.4); MONOCYTES # (AUTO) 0.8 10^3/uL (0.0-1.0); NEUTROPHILS # (AUTO) 16.6 10^3/uL (1.5-6.6); NEUTROPHILS % (AUTO) 85.3 %; PLT - PLATELET COUNT 797 10^3/uL (130-450); RED BLOOD COUNT 3.56 10^6/uL (4.70-6.10); RED CELL DISTRIBUTION WIDTH 13.1 % (12.0-15.0); WHITE BLOOD COUNT 19.4 x10^3/uL (4.8-10.8)
[2020-06-07 13:39] LABS: ALBUMIN 2.5 g/dL (3.2-5.5); ALBUMIN/GLOBULIN RATIO 0.5 (1.0-2.2); ALKALINE PHOSPHATASE 91 IU/L (42-121); ALT ALANINE AMINOTRANSFERASE 28 IU/L (10-60); AST ASPARTATE AMINOTRANSFERASE 24 IU/L (10-42); BILIRUBIN,TOTAL 0.3 mg/dL (0.2-1.0); BUN - BLOOD UREA NITROGEN 38 mg/dL (6-20); CALCIUM 9.2 mg/dL (8.5-10.3); CARBON DIOXIDE - CO2 23 mmol/L (21-32); CHLORIDE 100 mmol/L (101-111); CHOL/HDL RATIO 3.4 (<5.0); CHOLESTEROL 86 mg/dL; CREATININE 1.8 mg/dL (0.6-1.2); GLUCOSE 219 mg/dL (70-100); HDL CHOLESTEROL 25 mg/dL; LDL CHOLESTEROL,CALCULATED 38 mg/dL; LDL/HDL RATIO 1.5 (<3.6); SODIUM 134 mmol/L (135-145); TOTAL PROTEIN 7.4 g/dL (6.7-8.2); VLDL CHOLESTEROL 23 mg/dL
[2020-06-07 14:13] LABS: HEMOGLOBIN A1c% 8.6 % (4.27-6.07)
== END 2020-06-07 23:59 | disposition home or self-care (01) ==
LOC: LAB.WCP 08:00
PROVIDERS: ATTEND Family Medicine
DX: E11.9 Type 2 diabetes mellitus without complications (principal); M45.9 Ankylosing spondylitis of unspecified sites in spine
CPT/HCPCS: 36415; 80053; 80061; 83036; 83721; 85025; 85651

== ENCOUNTER 2020-06-13 08:00 | Outpatient (CLI) | payer MEDICARE, MEDICAID ==
[2020-06-13 12:02] LABS: ABNORMAL LYMPHS % (MANUAL) 0 %; BAND NEUTROPHILS % (MANUAL) 0 %
[2020-06-13 18:26] LABS: BASOPHILS % (AUTO) 0.5 %; EOSINOPHILS % (AUTO) 0.4 %; HGB - HEMOGLOBIN 9.3 g/dL (14.0-18.0); LYMPHOCYTES % (AUTO) 13.7 %; MEAN CORPUSCULAR HEMOGLOBIN 28.6 pg (27.0-31.0); MEAN CORPUSCULAR HGB CONC 31.4 g/dL (32.0-36.0); MEAN CORPUSCULAR VOLUME 91.1 fL (80.0-94.0); MONOCYTES % (AUTO) 5.2 %; NEUTROPHILS % (AUTO) 79.4 %; PLT - PLATELET COUNT 685 10^3/uL (130-450); RED BLOOD COUNT 3.25 10^6/uL (4.70-6.10); RED CELL DISTRIBUTION WIDTH 13.2 % (12.0-15.0)
[2020-06-13 19:51] LABS: LYMPHOCYTES # (MANUAL) 1.8 10^3/uL (1.5-3.5); LYMPHOCYTES % (MANUAL) 11 %; MONOCYTES # (MANUAL) 1.1 10^3/uL (0.0-1.0)
[2020-06-13 19:54] LABS: PLATELET ESTIMATE, MANUAL INCREASED (>450,000) (NORMAL); PLATELET MORPHOLOGY NORMAL APPEARANCE (NORMAL)
[2020-06-13 19:55] LABS: DIFFERENTIAL COMMENT MANUAL DIFFERENTIAL
[2020-06-13 19:56] LABS: WHITE BLOOD COUNT 16.2 x10^3/uL (4.8-10.8)
== END 2020-06-13 23:59 | disposition home or self-care (01) ==
LOC: LAB.WCP 08:00
PROVIDERS: ATTEND Family Medicine
DX: D64.9 Anemia, unspecified (principal); D47.3 Essential (hemorrhagic) thrombocythemia; D72.829 Elevated white blood cell count, unspecified
CPT/HCPCS: 36415; 81599; 85025; 88184; 88185; 88189

== ENCOUNTER 2020-07-04 10:39 | Outpatient (CLI) | payer MEDICARE, MEDICAID ==
--- NOTE | 2020-07-06 02:54 | CT Report ---
PROCEDURE: CHEST WO INDICATIONS: LOSS OF WEIGHT, LEUKOCYTOSIS, COUGH TECHNIQUE: Noncontrast 5 mm thick sections acquired from the pulmonary apices to the posterior costophrenic angl es. 7 mm thick coronal and sagittal MIP reformats were then acquired. For radiation dose reduction, the following was used: automated exposure control, adjustment of mA and/or kV according to patient size. COMPARISON: Chest x-ray, 02/23/2020. FINDINGS: Image quality: Excellent. Lungs and pleura: There is narrowing of the right upper lobe bronchus. There is an irregular airspac e opacity in the right upper lobe measuring 5.8 x 5.9 cm. There is bronchiectasis in right upper lob e. Hslwblvq-[id number]-picwni centrilobular emphysema. No acute air space opacities. No pleural effusions or pneumothorax. Central and peripheral airways are patent and normal in caliber. Mediastinum: Heart size is normal. No pericardial effusion. Mildly enlarged mediastinal lymph nodes are identified, measuring up to 1.2 cm. Thoracic aorta and central pulmonary arteries are normal in size. Esophagus is normal in caliber. There is a small hiatal hernia. Bones and chest wall: No suspicious bony lesions. No vertebral body compression fractures. Diffuse bridging osteophyte. There is osteopenia. Mild kyphosis. No axillary or supraclavicular adenopathy b y size criteria. The thyroid is normal in size. Abdomen: Visualized upper abdominal solid organs and bowel loops appear normal in the absence of con trast. IMPRESSION: 1. An irregular airspace opacity in the right upper lobe. There is narrowing of the right upper lobe bronchus. Bronchiectasis is present in the right upper lobe. The CT findings are most likely related to an infectious process but endobronchial neoplasm cannot be excluded. Recommend pulmonology consult ation. A short-term follow-up CT in 3 months is suggested. Alternatively, PET/CT may be helpful. 2. Mild mediastinal lymphadenopathy, which is nonspecific. 3. Zxtmeqwl-jr-ojsbuv centrilobular emphysema. Reviewed by: Rupinder Wood MD on 07/04/2020 6:21 PM PST Approved by: Rupinder Wood MD on 07/04/2020 6:21 PM PST Station ID: [id number]
== END 2020-07-04 10:40 | disposition home or self-care (01) ==
LOC: DI 10:39
PROVIDERS: ATTEND Family Medicine
DX: J47.9 Bronchiectasis, uncomplicated (principal); R91.8 Other nonspecific abnormal finding of lung field
CPT/HCPCS: 71250

== ENCOUNTER 2020-07-04 10:59 | Outpatient (CLI) | payer MEDICARE, MEDICAID ==
--- NOTE | 2020-07-04 13:27 | XRAY Report ---
PROCEDURE: Lumbar Spine w/Flex/Ext INDICATIONS: Ankylosing spondylitis of multiple sites in spine TECHNIQUE: 4 views of the lumbar spine acquired. COMPARISON: Chest CT that includes a portion of the lumbosacral spine dated 07/04/2020. Are found, b ut there appears to be thin calcification involving the anterior longitudinal ligament and the gasoline plant operator ior longitudinal ligament to a lesser degree in a pattern suggestive of ankylosing spondylitis, which is better seen on the thoracic spine imaging included on chest CT scanning from today. FINDINGS: Bones: 5 czi-zyr-mvlvkdf vertebrae are present. There is normal bony alignment. No vertebral body compression fractures. No suspicious bony lesions. No identifiable change in alignment is seen on f lexion and extension imaging. Soft tissues: Overlying bowel gas pattern is normal. No suspicious soft tissue calcifications. Flexion/extension: There is no identifiable range of motion, with preserved normal alignment. IMPRESSION: Ankylosing spondylitis appears present, especially with additional visualization of the thoracic spine during chest CT scanning is obtained today. The ankylosis is more easily visualized in the thoracic spine but appears to extend through the lumbosacral spine and there is no identifiable change in alignment of the thoracolumbosacral spine during reported flexion and extension imaging att empts. Please note that ankylosing spondylitis increases risk for significant spine injury in the setting of relatively mild trauma. Reviewed by: Jamshid Garnica MD on 07/04/2020 1:26 PM PST Approved by: Jamshid Garnica MD on 07/04/2020 1:26 PM PST Station ID: [id number]
--- NOTE | 2020-07-04 13:29 | XRAY Report ---
PROCEDURE: Cervical Spine w/Flex/Ext INDICATIONS: Ankylosing spondylitis of multiple sites in spine TECHNIQUE: 5 views of the cervical spine were acquired. COMPARISON: None. FINDINGS: Bones: No fractures or dislocations to the T1 level. No suspicious bony lesions but there is a pete mariusz of ankylosing spondylitis with no appreciable mobility of the cervical spine during flexion and e xtension imaging.. There is normal range of motion between flexion and extension, with preserved nor mal bony alignment. Soft tissues: Prevertebral soft tissues are normal in thickness. IMPRESSION: Ankylosing spondylitis without visualized evidence of normal change in morphology of the cervical spine alignment during flexion and extension imaging. Please note that ankylosing spondylitis does increase risk of significant spine injury in the setting of relatively mild trauma. Reviewed by: Jamshid Garnica MD on 07/04/2020 1:27 PM PST Approved by: Jamshid Garnica MD on 07/04/2020 1:27 PM PST Station ID: [id number]
== END 2020-07-04 11:00 | disposition home or self-care (01) ==
LOC: DI 10:59
PROVIDERS: ATTEND Pain Medicine Pain Medicine
DX: M45.0 Ankylosing spondylitis of multiple sites in spine (principal); J47.9 Bronchiectasis, uncomplicated; R91.8 Other nonspecific abnormal finding of lung field
CPT/HCPCS: 71250

== ENCOUNTER 2020-08-18 08:00 | Outpatient (CLI) | payer MEDICARE, MEDICAID ==
[2020-08-18 12:06] LABS: BASOPHILS # (AUTO) 0.1 10^3/uL (0.0-0.1); BASOPHILS % (AUTO) 0.4 %; EOSINOPHILS # (AUTO) 0.1 10^3/uL (0.0-0.7); EOSINOPHILS % (AUTO) 0.5 %; HGB - HEMOGLOBIN 9.3 g/dL (14.0-18.0); LYMPHOCYTES # (AUTO) 2.7 10^3/uL (1.5-3.5); MEAN CORPUSCULAR HEMOGLOBIN 26.2 pg (27.0-31.0); MEAN CORPUSCULAR HGB CONC 30.7 g/dL (32.0-36.0); MEAN CORPUSCULAR VOLUME 85.4 fL (80.0-94.0); MEAN PLATELET VOLUME 8.9 fL (7.4-11.4); MONOCYTES # (AUTO) 0.6 10^3/uL (0.0-1.0); MONOCYTES % (AUTO) 4.9 %; NEUTROPHILS # (AUTO) 8.4 10^3/uL (1.5-6.6); NEUTROPHILS % (AUTO) 70.7 %; PLT - PLATELET COUNT 551 10^3/uL (130-450); RED BLOOD COUNT 3.55 10^6/uL (4.70-6.10); RED CELL DISTRIBUTION WIDTH 15.2 % (12.0-15.0); WHITE BLOOD COUNT 11.9 x10^3/uL (4.8-10.8)
[2020-08-18 12:19] LABS: CALCIUM 9.1 mg/dL (8.5-10.3); CREATININE 1.6 mg/dL (0.6-1.2); INR 1.2 (0.8-1.2); PT - PROTHROMBIN TIME 13.2 secs (9.9-12.6)
== END 2020-08-18 23:59 | disposition home or self-care (01) ==
LOC: LAB.WCP 08:00
PROVIDERS: ATTEND Family Medicine
DX: Z01.812 Encounter for preprocedural laboratory examination (principal); E11.9 Type 2 diabetes mellitus without complications; D72.829 Elevated white blood cell count, unspecified; I48.91 Unspecified atrial fibrillation; R91.8 Other nonspecific abnormal finding of lung field
CPT/HCPCS: 36415; 80048; 85025; 85610

== ENCOUNTER 2020-09-19 18:28 | Inpatient (IN) | payer MEDICARE, MEDICAID ==
[2020-09-19 19:10] LABS: BASOPHILS % (AUTO) 0.2 %; EOSINOPHILS # (AUTO) 0.1 10^3/uL (0.0-0.7); EOSINOPHILS % (AUTO) 0.5 %; HCT - HEMATOCRIT 29.9 % (42.0-52.0); HGB - HEMOGLOBIN 9.5 g/dL (14.0-18.0); LYMPHOCYTES # (AUTO) 2.2 10^3/uL (1.5-3.5); LYMPHOCYTES % (AUTO) 13.7 %; MEAN CORPUSCULAR HGB CONC 31.8 g/dL (32.0-36.0); MEAN CORPUSCULAR VOLUME 81.9 fL (80.0-94.0); MEAN PLATELET VOLUME 9.9 fL (7.4-11.4); MONOCYTES % (AUTO) 5.8 %; NEUTROPHILS # (AUTO) 12.9 10^3/uL (1.5-6.6); NEUTROPHILS % (AUTO) 79.1 %; PLT - PLATELET COUNT 555 10^3/uL (130-450); RED BLOOD COUNT 3.65 10^6/uL (4.70-6.10); RED CELL DISTRIBUTION WIDTH 15.7 % (12.0-15.0); WHITE BLOOD COUNT 16.3 x10^3/uL (4.8-10.8)
--- NOTE | 2020-09-19 19:13 | ED Physician Documentation ---
History of Present Illness - Stated complaint Stated Complaint: COUGHING FITS - Chief complaint Chief Complaint: General - Additonal information Additional information: 64-year-old male Who has a history of rheumatoid arthritis, coronary artery disease, diabetes mellitus type 2, hypertension as well as ankylosing spondylolysis presents to the emergency department for difficulty swallowing. For more than a year he reports that he has coughing and choking fits when swallowing liquids. He can eat and swallow foods normally. His brother in the room reports that he did have a swallow study done sometime ago that showed dysfunction with the upper esophagus/epiglottis. The patient himself reports that he was advised to thicken his liquids but has not initiated this. In addition to the difficulty swallowing reports that he has begun to lose weight. He also reports that recently he was scheduled to undergo surgery at [facility] for a shoulder problem. However due to significant leukocytosis in June 2020 this was canceled. He did follow-up with hematology and oncology and the leukocytosis had resolved (August 2020). He did have a CT scan of the chest secnday to the leukocytosis that the brother and the patient reports showed scar tissue only however. The CT scan suggested bronchiectasis related to an infectious process but endobronchial neoplasm could not be excluded. The recommendation was for pulmonary consultation and short-term CT follow-up in 3 months. On chart review I do see a barium swallow study that was completed in August 2019. The interpretation of the swallow study is normal with various liquids. This is in marie contrast to what the patient and his brother report. Review of Systems Constitutional: reports: Weight Loss. denies: Fever, Chills Eyes: reports: Reviewed and negative Nose: reports: Reviewed and negative Throat: reports: Dental pain / toothache Cardiac: denies: Chest pain / pressure, Palpitations Respiratory: reports: Cough. denies: Dyspnea, Hemoptysis, Wheezing GI: denies: Abdominal Pain, Nausea, Vomiting : denies: Dysuria, Frequency, Hesitancy Skin: denies: Rash, Lesions Musculoskeletal: denies: Neck pain, Back pain PD PAST MEDICAL HISTORY - Past Medical History Cardiovascular: Hypertension, High cholesterol Respiratory: COPD Neuro: None Endocrine/Autoimmune: Type 2 diabetes GI: GERD : None HEENT: None Psych: None Musculoskeletal: Osteoarthritis, Chronic back pain Derm: None - Past Surgical History General: Cholecystectomy, Appendectomy Ortho:  Cardiovascular: Other HEENT: Tonsil/Adenoidectomy - Present Medications Home Medications: Ambulatory Orders Medication Instructions Recorded Confirmed Esomeprazole Magnesium [Nexium] 40 mg PO DAILY 09/10/13 09/19/20 Lorazepam 0.5 mg PO DAILY 09/10/13 09/19/20 Metoclopramide [Reglan] 10 mg PO TID 09/10/13 09/19/20 Pregabalin [Lyrica] 150 mg PO BID 09/10/13 09/19/20 Sitagliptin Phos/Metformin HCl 1 each PO BID 09/10/13 09/19/20 [Janumet 50-1,000 mg Tablet] Insulin Detemir [Levemir Flextouch] 0 units SQ BID 07/12/14 09/19/20 Atorvastatin [Lipitor] 20 mg PO QPM 02/23/20 09/19/20 Varenicline Tartrate [Chantix] 1 mg PO BID 02/23/20 09/19/20 Acetaminophen [Tylenol Extra 500 mg PO PRN PRN MDD 3000 MG 02/24/20 09/19/20 Strength] HYDROcod/ACETAM 5/325 [[place] 5/325] 1 ea PO Q6H PRN #15 tablet 02/24/20 09/19/20 Metformin HCl 1,000 mg pe PO BID 02/24/20 09/19/20 Metoprolol Tartrate 25 mg PO BID 02/24/20 09/19/20 - Allergies Allergies/Adverse Reactions: Allergies Allergy/AdvReac Type Severity Reaction Status Date / Time No Known Drug Allergies Allergy Verified 09/19/20 19:09 - Social History Smoking Status: Former smoker PD ED PE EXPANDED - General General: Alert, No acute distress, Well developed/nourished - Neck Neck: Supple w/out meningeal sx, Other (normal swallow). No: Adenopathy - Cardiac Cardiac: Regular Rate, Murmur Present, Radial strong equal, Pedal strong equal, Cap refill < 2 sec - Respiratory Respiratory: Rhonchi (generalized rhonci right lung). No: Clear to ausultation jadon, Distress, Labored - Abdomen Abdomen: Normal Bowel sounds. No: Tender to palpation - Extremities Extremities: Normal. No: Deformity, Tenderness - Neuro Neuro: Alert and Oriented X 3, CNII-XII intact Results - Vitals Vitals: Vital Signs - 24 hr 09/19/20 09/19/20 09/19/20 18:31 19:40 19:53 Temperature 36.6 C Heart Rate 102 H 104 H 89 Respiratory 18 14 16 Rate Blood Pressure 139/72 H 157/75 H 157/75 H O2 Saturation 100 100 97 09/19/20 19:58 Temperature Heart Rate 98 Respiratory 15 Rate Blood Pressure 109/70 O2 Saturation 98 Oxygen O2 Source Room air - Labs Labs: Laboratory Tests 09/19/20 09/19/20 09/19/20 19:04 19:04 19:30 WBC 16.3 H RBC 3.65 L Hgb 9.5 L Hct 29.9 L MCV 81.9 MCH 26.0 L MCHC 31.8 L RDW 15.7 H Plt Count 555 H MPV 9.9 Neut # (Auto) 12.9 H Lymph # (Auto) 2.2 Piute # (Auto) 1.0 Eos # (Auto) 0.1 Baso # (Auto) 0.0 Absolute Nucleated RBC 0.00 Nucleated RBC % 0.0 Sodium 125 L Potassium 4.3 Chloride 86 L Carbon Dioxide 24 Anion Gap 15.0 H BUN 51 H Creatinine 2.0 H Estimated GFR (MDRD) 34 L Glucose 353 H Lactic Acid Calcium 9.6 Total Bilirubin 0.5 AST 17 ALT 17 Alkaline Phosphatase 79 Total Protein 7.8 Albumin 2.5 L Globulin 5.3 H Albumin/Globulin Ratio 0.5 L Lipase 18 L Urine Color YELLOW Urine Clarity CLEAR Urine pH 5.5 Ur Specific Mikana 1.010 Urine Protein NEGATIVE Urine Glucose (UA) >=1000 H Urine Ketones NEGATIVE Urine Occult Blood SMALL H Urine Nitrite NEGATIVE Urine Bilirubin NEGATIVE Urine Urobilinogen 0.2 (NORMAL) Ur Leukocyte Esterase NEGATIVE Urine RBC 0-5 Urine WBC 0-3 Ur Squamous Epith Cells RARE Squamous Urine Bacteria None Seen Urine Mucus Few Strands Urine Culture Comments NOT INDICATED Nasal Adenovirus (PCR) Nasal B. parapertussis DNA (PCR) Nasal Coronavir 229E PCR Nasal Coronavir HKU1 PCR Nasal Coronavir NL63 PCR Nasal Coronavir OC43 PCR Nasal Enterovir/Rhinovir PCR Nasal Influenza B PCR Nasal Influenza A PCR Nasal Parainfluen 1 PCR Nasal Parainfluen 2 PCR Nasal Parainfluen 3 PCR Nasal Parainfluen 4 PCR Nasal RSV (PCR) Nasal B.pertussis DNA PCR Nasal C.pneumoniae (PCR) Moody Human Metapneumo PCR Nasal M.pneumoniae (PCR) Nasal SARS-CoV-2 (PCR) 09/19/20 09/19/20 20:00 20:05 WBC RBC Hgb Hct MCV MCH MCHC RDW Plt Count MPV Neut # (Auto) Lymph # (Auto) Piute # (Auto) Eos # (Auto) Baso # (Auto) Absolute Nucleated RBC Nucleated RBC % Sodium Potassium Chloride Carbon Dioxide Anion Gap BUN Creatinine Estimated GFR (MDRD) Glucose Lactic Acid 1.4 Calcium Total Bilirubin AST ALT Alkaline Phosphatase Total Protein Albumin Globulin Albumin/Globulin Ratio Lipase Urine Color Urine Clarity Urine pH Ur Specific Mikana Urine Protein Urine Glucose (UA) Urine Ketones Urine Occult Blood Urine Nitrite Urine Bilirubin Urine Urobilinogen Ur Leukocyte Esterase Urine RBC Urine WBC Ur Squamous Epith Cells Urine Bacteria Urine Mucus Urine Culture Comments Nasal Adenovirus (PCR) NOT DETECTED Nasal B. parapertussis DNA (PCR) NOT DETECTED Nasal Coronavir 229E PCR NOT DETECTED Nasal Coronavir HKU1 PCR NOT DETECTED Nasal Coronavir NL63 PCR NOT DETECTED Nasal Coronavir OC43 PCR NOT DETECTED Nasal Enterovir/Rhinovir PCR NOT DETECTED Nasal Influenza B PCR NOT DETECTED Nasal Influenza A PCR NOT DETECTED Nasal Parainfluen 1 PCR NOT DETECTED Nasal Parainfluen 2 PCR NOT DETECTED Nasal Parainfluen 3 PCR NOT DETECTED Nasal Parainfluen 4 PCR NOT DETECTED Nasal RSV (PCR) NOT DETECTED Nasal B.pertussis DNA PCR NOT DETECTED Nasal C.pneumoniae (PCR) NOT DETECTED Moody Human Metapneumo PCR NOT DETECTED Nasal M.pneumoniae (PCR) NOT DETECTED Nasal SARS-CoV-2 (PCR) NOT DETECTED - Rads (name of study) CXR Radiology: Final report received (Irregular opacities in the right apex and right lower lung. Right lower lung opacities are increased. Differential diagnosis includes pneumonia including atypical infection such as TB or MARY, inflammatory conditions and neoplasm) CT neck soft tissue Radiology: Final report received (Upper thoracic esophagus appears mildly thickened, suggesting mild esophagitis. Maxillary sinus disease. Ankylosing spondylitis) CT chest w Radiology: Final report received (Right lung opacities are present increased right middle and lower lobe consistent with pneumonia or aspiration. Chronic airspace opacities in the right upper lobe which could obscure a mass. Small lung nodules bilaterally are stable. Moderate emphysema. Mild mediastinal lymphadenopathy) PD MEDICAL DECISION MAKING - ED course Complexity details: reviewed old records, reviewed results, re-evaluated patient, considered differential, d/w patient, d/w family ED course: 64-year-old male presents to the emergency department for evaluation of productive cough which has been worsening for the last 6 months. He reports difficulty swallowing thin liquids. He did have a barium study completed in August 2019 that did not show any abnormality. On presentation he is not hypoxic but generally rhonchorous in his right-sided lung kelsey. 2 view chest x-ray does reveal fairly significant right lower lobe and right middle lobe pneumonia. 192: Pt meets Sepsis criteria. Patient is noted to have leukocytosis. Lactic acid and blood cultures are pending however given concern for aspiration pneumonia on chest XR, Unasyn has been initiated. He is noted to have acute kidney injury with creatinine of 2.0 and a BUN of 54. This is most consistent with early dehydration. 2 L of IV fluid has been initiated in part secondary to dehydration as well as per per sepsis protocol. 2039: Patient's lactate is normal. I discussed this case with admitting hospitalist Dr. Jones who agrees to bring the patient in for further evaluation and treatment of his sepsis likely secondary to aspiration pneumonia as well as acute kidney injury, early dehydration and dysphagia. CT imaging results of the chest and neck are currently pending and will be f/u by hospitalist team. However preliminary reports indicate esophageal wall thickening likely suggesting chronic esophagitis. There are right lung opacities that are increased in the right middle lobe and lower lobe consistent with a pneumonia or aspiration. Chronic airspace opacities in the right upper lobe could obscure a mass. Would recommend repeat CT imaging in 3 to 6 months when free of symptoms. - Sepsis Event Current Stage of Sepsis: Sepsis Possible source of Sepsis: Pulmonary Mental/Cognitive Status: Alert/Oriented X3, Normal for patient Capillary refill: Less than 2 seconds Peripheral Pulse Strength: 2+ Slightly Diminished Peripheral Pulse Location: Radial Bedside ultrasound performed: Yes Sepsis Comment: 1927: leukocytosis 16k. CXR c/w aspiration pneumonia. lactic acid pending. Blood cx ordered. Noted SANDRINE with likely early dehydration. 2 liters crystalloid 0.9% saline initiated. (30ml/kg = 2175 ml) Departure - Departure Disposition: 66 [facility] DC/Xfer Clinical Impression: Hyponatremia Sepsis Qualifiers: Sepsis type: sepsis due to unspecified organism Sepsis acute organ dysfunction status: with acute organ dysfunction Severe sepsis acute organ dysfunction type: acute renal failure Acute renal failure type: unspecified Severe sepsis shock status: without septic shock Qualified Code(s): A41.9 - Sepsis, unspecified organism Pneumonia Qualifiers: Pneumonia type: aspiration pneumonia Aspiration pneumonia type: unspecified Laterality: right Lung location: lower lobe of lung Qualified Code(s): J69.0 - Pneumonitis due to inhalation of food and vomit Dysphagia Qualifiers: Dysphagia type: unspecified Qualified Code(s): R13.10 - Dysphagia, unspecified
[2020-09-19 19:23] LABS: ALBUMIN 2.5 g/dL (3.2-5.5); ALBUMIN/GLOBULIN RATIO 0.5 (1.0-2.2); BILIRUBIN,TOTAL 0.5 mg/dL (0.2-1.0); CALCIUM 9.6 mg/dL (8.5-10.3); POTASSIUM 4.3 mmol/L (3.5-5.0); TOTAL PROTEIN 7.8 g/dL (6.7-8.2)
[2020-09-19] MEDS ORDERED: SODIUM CHLORIDE 0.9% 1,000 ML IV STA ×2 (19:30)
[2020-09-19] MEDS ORDERED: AMPICILLIN/SULBACTAM 3 GM in SODIUM CHLORIDE 0.9% MINIBAG 100 ML IV STA (19:33)
[2020-09-19 19:42] LABS: BILIRUBIN,URINE NEGATIVE (NEGATIVE); GLUCOSE, URINE (UA) >=1000 mg/dL (NEGATIVE); KETONES,URINE (UA) NEGATIVE (NEGATIVE); LEUKOCYTE ESTERASE, URINE NEGATIVE (NEGATIVE); NITRITE,URINE NEGATIVE (NEGATIVE); OCCULT BLOOD,URINE SMALL (NEGATIVE); PH,URINE 5.5 PH (5.0-7.5); PROTEIN,URINE NEGATIVE (NEGATIVE); UROBILINOGEN,URINE 0.2 (NORMAL) E.U./dL (NORMAL)
[2020-09-19 19:48] LABS: BACTERIA,URINE None Seen /HPF (None Seen); CLARITY,URINE CLEAR (CLEAR); MUCUS,URINE Few Strands; RBC,URINE 0-5 /HPF (0-5); SQUAMOUS EPITHELIAL CELL,UR RARE Squamous (<= Few); WBC,URINE 0-3 /HPF (0-3)
[2020-09-19] MEDS ORDERED: IOVERSOL 320 100 ML VIAL IVP ONE ×2 (20:04→20:38)
--- NOTE | 2020-09-19 20:04 | XRAY Report ---
PROCEDURE: Chest 2 View X-Ray INDICATIONS: cough TECHNIQUE: 2 view(s) of the chest. COMPARISON: Chest x-ray one view, 02/23/2020. Chest CT without contrast, 07/04/2020. FINDINGS: Surgical changes and devices: None. Lungs and pleura: Irregular opacities in right apex and right lower lung zone. No pleural effusions or pneumothorax. Mediastinum: Mediastinal contours are normal. Heart size is normal. Bones and chest wall: No suspicious bony abnormalities. Soft tissues appear unremarkable. IMPRESSION: Irregular opacities in the right apex and right lower lung zone. Right apical densities are decreased compared to the chest CT dated 07/04/2020. Right lower lung opacities are increased. Di fferential diagnoses include pneumonia including atypical infection, such as TB or MARY, inflammatory conditions and neoplasm. Reviewed by: Rupinder Wood MD on 09/19/2020 8:03 PM PDT Approved by: Rupinder Wood MD on 09/19/2020 8:03 PM PDT Station ID: [id number]
[2020-09-19] MEDS ORDERED: ONDANSETRON 4 MG/2 ML VIAL IVP PRN (20:38)
[2020-09-19] MEDS ORDERED: oxyCODONE 5 MG TABLET PO PRN (20:38)
[2020-09-19] MEDS ORDERED: ONDANSETRON ODT 4 MG TABLET TL PRN (20:38)
--- NOTE | 2020-09-19 20:59 | HISTORY & PHYSICAL EXAMINATION ---
Chief Complaint - Chief Complaint Chief Complaint: dysphagia History of Present Illness - Admitted From Admitted From:: Home via ER - History Obtained From Records Reviewed: [facility] History obtained from: Patient and [address] [employer] [address] [employer] Alex Exam Limitations: none - History of Present Illness HPI Comment/Other: This is a 64-year-old white male who has hypertension, ischemic cardiomyopathy, and diabetes mellitus that has been having problems with dysphagia for over a year. It is mainly with thin liquids. It has been getting steadily worse to the point that swallowing any amount of liquids results and increasing cough, and increasing gurgling sounds in his lungs. The last few weeks have been particularly problematic. He called his primary care provider office on September 15. He told him that he could not even swallow water. They called him back today and told him that he needed to be seen in the emergency room. He has a visit with his shoe packer tomorrow, and with another provider on for diabetic classes.His diabetes is recently been quite uncontrolled. He had to have his insulin doubled in the last month. He has a history of recurrent aspiration pneumonia that was thought to be secondary to poorly controlled GERD. In December 2014 EGD which showed persistent reflux symptoms despite PPIs. He had a normal esophagus, antral erosion and normal duodenum. In April 2019 he underwent VSFF At [facility] that was notable for frequent silent tracheal aspiration. With history of cough and regurgitation of undigested food. At that point he also to limited been going on for a year. He describes cervical arthritis with a protruding neck position. At that point in time they recommended nectar thick liquids, mechanical soft diet. Upright 90 degrees. Chopped food with single sips after each bite. [facility] At that visit he describes dysphagia t hat has been longstanding but worsening. In spite of pantoprazole twice a day he continued to describe reflux, regurgitation, postnasal drip and chronic cough to Dr. Flowers. He described shortness of breath and dyspnea on exertion with a productive cough that waxed and waned. The wireworker was concerned with the state of his respiratory status at that visit. He had labored breathing, cough, abnormal breath sounds. He strongly recommended a pulmonary work-up prior to another EGD to avoid respiratory compromise during the procedure. He also thought that the patient would be a probable candidate for antireflux surgery. Not much more could be done to manage his GERD from a medical standpoint. He was to have an elective surgery June 2020 for his shoulder. But they noted an elevated white cell count with preop labs. CT of the chest at that time showed pneumonia and it was suggested that he had follow-up to make sure he did not have neoplasm. He was seen by Dr. Elías Gates from [facility] July 25, 2020. She obtained the history of increasing cough, especially with water. He was complaining of appetite loss, and weight loss. Occasional night sweats. Overall about a 20 pound weight loss. He was off-and-on tired. Off-and-on dizzy. She was mainly seeing him for the leukocytosis and thrombocytosis. She made no mention of a lung mass. She evaluated him for myeloproliferative disorder. His peripheral blood PCR for JAK2 mutation, MPL, and CALR mutation were all negative. BCR/ABL was negative as well. He had been treated for the changes on CT with antibiotics. By his second visit with the oncologist his leukocytosis had resolved and she did not need to see him in follow-up. He also had a lung biopsy done by a different provider. He thinks it was a surgeon named Dr. Weathers. He thinks it was done at [facility] in August. When I looked at his medical records, it was done by Dr. Jorje Barahona and it was a flexible and navigational bronchoscopy with biopsy. This was done July 26, 2020. As far as he knows, the lung biopsy showed him to have "scar tissue". Ever since he had a lung biopsy, his reflux and inability to swallow even thin liquids is much, much worse. In the note with the surgeon, CAT scans from July 04, 2020, July 26, 2020 were reviewed when his CT was repeated August 22, 2020. The density in the anterior inferior portion of the right upper lobe has significantly improved over time. Findings were consistent with an improving right upper lobe pneumonia. Over time the right middle lobe is collapsed and there is associated bronchiectasis in the right middle lobe. There is moderate centrilobular emphysema. No focal suspicious masses. No pleural effusions. No pericardial effusion. Diffuse idiopathic skeletal hyperostosis versus ankylosing spondylitis seen. No adenopathy. He will can walk a few blocks without shortness of breath. No edema or orthopnea. Last seen by cardiology September 07, [address] Hightower. Echo May 2020 with EF 41%. Mild global hypokinesis left ventricle. Basal inferior aneurysm. Akinesis of basal inferior and inferoseptal munoz. RV normal. Mild AR. Compared to prior echo mild reduction in EF noted. Nuclear medicine stress test with old MD in proximal and mid inferior wall, proximal inferoseptal munoz with mild jennifer-infarct ischemia in the inferior apex, distal inferior and distal inferolateral munoz. Coronary angiogram September 2017 with inferior basilar akinesis, ejection fraction 40 to 45%. Left main open. LAD with minimal l uminal irregularities in the proximal and mid vessel. Ramus intermedius open. Circumflex open. RCA codominant with a wraparound the LAD with chronic total occlusion in the proximal vessel. Right to right and left to right collaterals noted. Attempts to cross the chronic total occlusion with the wire were unsuccessful. Medical management and risk factor modification recommended. He was seen by CAREY Johnson. Temperature was 36.6. He was tachycardic at 102. Blood pressure 139/72. Respirations 18. 100% on room air. Again, his presentation was that of dysphagia. No fever, chills, sweats. No shortness of breath. He was alert, well-developed and well-nourished. A supple neck. Normal swallowing seen. He had a cardiac murmur. Rhonchi both lungs with right greater than left. Otherwise clear without any respiratory distress. Abdomen was benign. His white cell count was elevated at 16.3 again. Hemoglobin 9.5. Sodium 125, and BUN acutely elevated to 51 with creatinine acutely elevated to two. Random glucose 353. Lactic acid 2.5 in a man who is on Metformin. Albumi n was low at 2.5. In order to fully evaluate him the ER provider has ordered a CT of the neck, and CT of the chest and those are pending at the time of admission. History - Past Medical History Cardiovascular: reports: Congestive heart failure (chronic mild sytolic HF), Hypertension, High cholesterol, Murmur Respiratory: reports: COPD, Tuberculosis (Quantiferon Gold (+) 12/2014 w neg CXR, (+) PPD 1997 no Tx. INH/rifamipin recommended & completed 3 months ) Neuro: reports: Peripheral neuropathy (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 on EEG 01/09 and severe of BUE on EEG 03/2020) Endocrine/Autoimmune: reports: Type 2 diabetes GI: reports: GERD : reports: Benign prostate hypertrophy, Retention, Renal insuffiency HEENT: reports: Chronic vision loss Psych: reports: None Musculoskeletal: reports: Osteoarthritis, Chronic back pain (Seen by [facility] for pain management. Subacromial injection of painful right shoulder August 2020.), Other (ankylosing spondylitis. Followed by [facility]. Last seen May 2020. He etodolac helps. Opted not to put him on biologic agent. past used enbrel and humira and sulfasalazine) Derm: reports: None MRSA Hx?: No - Past Surgical History General: reports: Cholecystectomy, Appendectomy, Colonoscopy (December 28, 2014. Diffuse scattered ulcerations raised on small nodules. BX mild active colitis. 3 mm hyperplastic polyp. Mild to moderate internal hemorrhoids.) Ortho: reports: Shoulder arthroplasty (twice of left, once on right), Arthrosco pic surgery (both knees) Cardiovascular: reports: Other HEENT: reports: Tonsil/Adenoidectomy - Family & Social History Family History Comment/Other: He reports his father had a history of coronary artery disease as well as diabetes. ?CHF of cancer of lung. His mother also had diabetes, memory loss. Both are . 1 brother and 2 sisters. Kidney stones. Living arrangement: At home Living Situation: With family Social History Notes: Moved from [facility] 2012. He lives at home with his brother.His brother has a new girlfriend. She is living with them and she is in the process of finalizing her divorce from her . He has been on disability since the due to his arthritis. He has been smoking a pack a day for about 20 years but has been decreasing the amount he is smoking after he was on Chantix. Down to 1/2 ppd. Reports occasional alcohol use. Single. - Substance History Use: Uses substance without health or social issues: Tobacco Abuse: Recurrent use of substance despite neg consequences: Inhalant Abuse Issues: Other (lung damage) Dependence: Experiences withdrawal or developed tolerances: NONE Tobacco Details: Cigarettes - POLST Patient has POLST: No POLST Status: DNR (he doesn't want CPR or intubation) Meds/Allgy - Home Medications Home Medications: Ambulatory Orders Medication Instructions Recorded Confirmed Esomeprazole Magnesium [Nexium] 40 mg PO DAILY 09/10/13 09/19/20 Lorazepam 0.5 mg PO DAILY 09/10/13 09/19/20 Metoclopramide [Reglan] 10 mg PO TID 09/10/13 09/19/20 Pregabalin [Lyrica] 150 mg PO BID 09/10/13 09/19/20 Sitagliptin Phos/Metformin HCl 1 each PO BID 09/10/13 09/19/20 [Janumet 50-1,000 mg Tablet] Insulin Detemir [Levemir Flextouch] 0 units SQ BID 07/12/14 09/19/20 Atorvastatin [Lipitor] 20 mg PO QPM 02/23/20 09/19/20 Varenicline Tartrate [Chantix] 1 mg PO BID 02/23/20 09/19/20 Acetaminophen [Tylenol Extra 500 mg PO PRN PRN MDD 3000 MG 02/24/20 09/19/20 Strength] HYDROcod/ACETAM 5/325 [[place] 5/325] 1 ea PO Q6H PRN #15 tablet 02/24/20 09/19/20 Metformin HCl 1,000 mg pe PO BID 02/24/20 09/19/20 Metoprolol Tartrate 25 mg PO BID 02/24/20 09/19/20 - Allergies Allergies/Adverse Reactions: Allergies Allergy/AdvReac Type Severity Reaction Status Date / Time No Known Drug Allergies Allergy Verified 09/19/20 19:09 Review of Systems - Constitutional Constitutional: reports: Fatigue (187 lbs 09/2019; 171 12/2019, 169 06/2020, and 160 lbs 08/2020.), Poor appetite, Diaphoresis, Night sweats (off and on since 2014), Weight loss - Eyes Eyes: reports: Pain, Irritation, Blurred vision, Corrective lenses - Ears, Nose & Throat Ears, Nose & Throat: reports: Hearing loss, Nasal discharge, Postnasal drainage, Hoarseness - Cardiovascular Cariovascular: reports: Lightheadedness (when he is bending over then gets up too quickly), Exertional dyspnea (if walks too far). denies: Irregular heart rate, Palpitations, Chest pain, Edema, Syncope, Decr. exercise tolerance, Orthopnea - Respiratory Respiratory: reports: Cough, Sputum production (yellow to white and thick), SOB with exertion. denies: Wheezing, Snoring, Hemoptysis, Orthopnea, SOB at rest - Gastrointestinal Gastrointestinal: reports: Abdominal pain (sharp and intermittent, vague, all over, nothing makes it better or worse. no rhyme or reason), Change in bowel habits (poop was green 2 weeks ago), Reflux/heartburn, Bloating, Poor appetite. denies: Abdominal distention, Constipation, Diarrhea, Rectal bleeding, Black stools, Bloody stools, Nausea, Vomiting, Coffee grounds emesis - Genitourinary Genitourinary: reports: Frequency, Urgency, Nocturia (4-5 times a night), Other (decreased stream) - Musculoskeletal Musculoskeletal: reports: Back pain (with limted ROM for yrs.), Stiffness, Joint pain (R>L shoulder, elbows, wrists, hands, hips, knees and feet), Other (chronic stiff, painful neck to lower back since . Limited ROM.) - Integumentary Integumentary: reports: Pruritis (a times). denies: Rash, Lesions, Dryness, Lumps, Pigment changes - Neurological Neurological: reports: Dizziness (if gets up too fast), Numbness (hands and feet), Memory problems. denies: General weakness, Focal weakness, Headache, Seizures, Incoordination - Psychiatric Psychiatric: denies: Depression, Anxiety, Suicidal, Delusions, Hallucinations - Endocrine Endocrine: reports: Intolerance to cold. denies: Polyuria, Polydypsia, Polyphagia - Hematologic/Lymphatic Hematologic/Lymphatic: reports: Anemia. denies: Bruising, Petechiae, Blood clots, Lymphadenopathy Prior Level of Functionality: Independent with activities of daily living. As long as he is allowed to do things slowly he can dress himself, feed himself. Walk from point a to point B without any durable medical equipment. But if he has to [place] will get short of breath and fatigue. He lives with his brother because he really cannot do his own housework, and it was hard for him to get to his doctor appointments where he used to live in [place]. Exam - Vital Signs Reviewed Vital Signs: Yes Vital Signs: Vital Signs x48h Temp Pulse Resp BP Pulse Ox 09/19/20 19:58 98 15 109/70 98 09/19/20 19:53 89 16 157/75 H 97 09/19/20 19:40 104 H 14 157/75 H 100 09/19/20 18:31 36.6 C 102 H 18 139/72 H 100 - Physical Exam General Appearance: positive: No acute distress, Alert, Other (Well-developed white male who looks much older than stated age. Lying comfortably at about 30 degrees, watching TV. His history is interspersed with a thick, phlegmy, infrequent cough.) Eyes Bilateral: positive: PERRL, Other (Wearing glasses) ENT: positive: Pharyngeal erythema, Dry mucous membranes, Other (Anterior and posterior tonsillar folds are thickened, red. Cobblestoned.) Neck: positive: No JVD, Lymphadenopathy (R), Lymphadenopathy (L), Stiff neck Respiratory: positive: No respiratory distress, Rhonchi (Bilateral upper lungs) Cardiovascular: positive: Regular rate & rhythm, Systolic murmur. negative: Gallop/S4, Friction rub Peripheral Pulses: positive: 1+ Abdomen: positive: Non-tender, No organomegaly, Nml bowel sounds, No distention Skin: positive: Warm, Dry Extremities: positive: No pedal edema, Other (Stiff neck, stiff shoulders. Cannot AB duct right shoulder actively. And it hurts when I do it passively. Left arm more mobile. Stiff elbows, wrists. Wrist very stiff and almost frozen in one position. Knees have crepitance but no effusions. Ankles very stiff.) Neurologic/Psychiatric: positive: Oriented x3, CN's nml (2-12), Sensation nml (Light touch is not present in hands almost all the way to elbows. Feet almost all above ankles.). negative: Motor nml (Right arm cannot be lifted as well as left arm. Cannot tell if that is because of shoulder pain or weakness.) Sepsis Event Note (H) - Evaluation Current Stage of Sepsis: Sepsis Possible source of Sepsis: positive: Pulmonary Sepsis Associated Organ Dysfunction: SANDRINE - Sepsis Criteria Sepsis Criteria: Recorded Heart Rate greater than 90 bpm, WBC count greater than 12,000 or less than 4000, Metabolic: lactate > 2 mmol/L Conclusion/Plan - Problem List (1) Sepsis Conclusion/Plan: He meets criteria through tachycardia, elevated white cell count, lactic acid. Source would be aspiration pneumonia. 3-hour sepsis protocol instituted in the ER and he is received fluid bolus, and his first dose of antibiotics in the form of Unasyn. Plan: Inpatient admission Follow through on 6-hour bundle for sepsis with repeat lactic acid and repeat BMP Qualifiers: Sepsis type: sepsis due to unspecified organism Sepsis acute organ dysfunction status: with acute organ dysfunction Severe sepsis acute organ dysfunction type: acute renal failure Acute renal failure type: unspecified Severe sepsis shock status: without septic shock Qualified Code(s): A41.9 - Sepsis, unspecified organism; R65.20 - Severe sepsis without septic shock; N17.9 - Acute kidney failure, unspecified (2) Aspiration pneumonia Conclusion/Plan: Due to dysphagia. The dysphagia is described as a "bone sticking in his throat". It has been gradually worsening and progressive, depending on the notes in the medical record, since 2014. He had a previous episode of aspiration pneumonia approximately 2012. This was when he was living in [place]. He had an EGD done here at this hospital in 2014. Was seen by [facility] gastroenterology and their recommendations were reflux surgery. Swallow study was done at [facility], and then most recently here. Plan I have asked for general surgery consult for EGD. But I think this gentleman needs very close attentive consult with gastroenterology to explain the mechanism of his dysphagia that is not necessarily due to reflux. This patient swallows and water goes the wrong way. Is not just reflux. He also has upper extremity motor and sensory neuropathy. Should he be seen by neurology in consult because there may be a link or is it just as he says, the disruption of swallowing due to his ankylosing spondylitis. We will continue Unasyn started in the emergency room. Qualifiers: Aspiration pneumonia type: due to regurgitated food Laterality: bilateral Lung location: upper lobe of lung Qualified Code(s): J69.0 - Pneumonitis due to inhalation of food and vomit (3) Dysphagia, oropharyngeal phase Conclusion/Plan: Plan as above. We will also order diet as recommended at [facility] speech evaluation a year ago. (4) Type 2 diabetes mellitus with neurologic complication, with long-term current use of insulin Conclusion/Plan: At this time it is uncontrolled with an elevated glucose. May be contributing to his dehydration as well. Plan: Lantus 20 units tonight High-dose sliding scale to cover before meals no metformin due to lactic acidosis and creat A1c in am. Qualifiers: Diabetes mellitus complication detail: with polyneuropathy Qualified Code(s): E11.42 - Type 2 diabetes mellitus with diabetic polyneuropathy; Z79.4 - tank terminal gauger (current) use of insulin (5) Ischemic cardiomyopathy Conclusion/Plan: Distal right coronary artery disease that is unable to be stented. Maximal medical management advised. At this time he has an elevated glucose, continues to smoke, is hypertensive. As such all his risk factors are way too high and uncontrolled. Plan: Resume all of his medications (6) History of latent tuberculosis Conclusion/Plan: Constant sweats, weight loss. Already treated with 3 months of INH and rifampin in the past. CT of the chest was ordered in the emergency room. We will review that once it comes through. (7) Weight loss, non-intentional Conclusion/Plan: Due to dysphagia. However type B symptoms are present. Plan:, Nutrition consult, again review CT to make sure solid neoplasm is not involved He has already been evaluated by oncology for myeloproliferative disease, and that will not be repeated. (8) SANDRINE (acute kidney injury) Conclusion/Plan: and Hyponatremia due to dehydration. Also poor p.o. intake since every time he tries to drink thin liquids he aspirates. Plan: Has already received 2 L in the ER Continue lactated Ringer's at 100 cc an hour Repeat BMP in 4 hours, and daily in a.m. (9) Chronic anemia Conclusion/Plan: He has had a steadily worsening anemia since 2018. At that time he was 13 g of hemoglobin and has been steadily and steadily decreasing to this years 9 g of hemoglobin.He does have a history of colitis. Colonoscopy in December 2014 showed active disease. Most likely connected to his HLA-B27 positive status as well as his ankylosing spondylitis. Plan: Iron studies Check stool for fecal occult blood - Lab Results Lab results reviewed: Yes Fish Bones: 09/19/20 19:04 09/19/20 21:21 - EKG Results EKG Interpreted Independently: No Core Measures - Anticipated LOS I expect patient to be DC'd or transferred within 96 hours.: Yes - DVT/VTE - Prophylaxis VTE/DVT Device ordered at admit?: Yes
--- NOTE | 2020-09-19 20:59 | CT Report ---
PROCEDURE: SOFT TISSUE NECK W INDICATIONS: dysphagia CONTRAST: IV CONTRAST: Optiray 320 ml: 100 PO CONTRAST: *NO PO CONTRAST TECHNIQUE: After the administration of intravenous contrast, 3.0 mm axial sections acquired from the sella to th e aortic arch. Additional oblique axial 3.0 mm sections acquired through the pharynx. 3 mm thick co jan reformats were generated. For radiation dose reduction, the following was used: automated exp osure control, adjustment of mA and/or kV according to patient size. COMPARISON: Cervical spine x-ray, 07/04/2020. FINDINGS: Image quality: Excellent. Lymph nodes: No enlarged lymph nodes seen throughout the neck. Vessels: Visualized vasculature appears patent. Neck spaces: The oropharynx, nasopharynx, and pharynx demonstrate no mucosal lesions. The vocal cor ds, false vocal cords, pyriform sinuses, epiglottis, vallecula, and tongue base all appear normal. E xtramucosal spaces appear unremarkable. The upper thoracic esophagus appears mildly thickened. Glands: The parotid and submandibular glands appear normal. The thyroid is normal in size. Miscellaneous: Visualized brain and orbits appear normal. Moderate emphysema. Airspace opacities in the right apex. Superficial soft tissues appear normal. Bones: No suspicious bony lesions. Prominent anterior and posterior osteophytes in cervical spine, c onsistent with ankylosing spondylitis. Moderate degeneration of the TMJ, right greater than left. The re is mucosal thickening in the left maxilla sinus. A small air-fluid level is seen in the right maxi llary sinus. IMPRESSION: 1. The upper thoracic esophagus appears mildly thickened, suggesting mild esophagitis. 2. Maxillary sinus disease. 3. Airspace opacities in the right apex. Please see separate CT report for detail. 4. Ankylosing spondylitis. Reviewed by: Rupinder Wood MD on 09/19/2020 8:58 PM PDT Approved by: Rupinder Wood MD on 09/19/2020 8:58 PM PDT Station ID: [id number]
[2020-09-19 21:16] LABS: B. PARAPERTUSSIS- RESP PCR PAN NOT DETECTED; B. PERTUSSIS- RESP PCR PANEL NOT DETECTED; C. PNEUMONIAE- RESP PCR PANEL NOT DETECTED; CORONAVIRUS 229E-RESP PCR NOT DETECTED; CORONAVIRUS HKU1-RESP PCR NOT DETECTED; CORONAVIRUS NL63-RESP PCR NOT DETECTED; CORONAVIRUS OC43-RESP PCR NOT DETECTED; HUMAN METAPNEUMOVIRUS NOT DETECTED; INFLUENZA A- RESP PCR PANEL NOT DETECTED; INFLUENZA B - RESP PCR PANEL NOT DETECTED; M. PNEUMONIAE- RESP PCR PANEL NOT DETECTED; PARAINFLUENZA VIRUS 1 NOT DETECTED; PARAINFLUENZA VIRUS 2 NOT DETECTED; PARAINFLUENZA VIRUS 3 NOT DETECTED; PARAINFLUENZA VIRUS 4 NOT DETECTED; RHINOVIRUS/ENTEROVIRUS NOT DETECTED; RSV- RESP PCR PANEL NOT DETECTED; SARS-CoV-2 -RESP PCR PANEL NOT DETECTED
--- NOTE | 2020-09-19 21:18 | CT Report ---
PROCEDURE: CHEST W INDICATIONS: aspiration pna; r/o mass CONTRAST: IV CONTRAST: Optiray 320 ml: 100 PO CONTRAST: *NO PO CONTRAST TECHNIQUE: After the administration of intravenous contrast, 5 mm thick sections acquired from the pulmonary api nicolás to the posterior costophrenic angles. 7 mm thick coronal MIP reformats were acquired. For radia tion dose reduction, the following was used: automated exposure control, adjustment of mA and/or kV according to patient size. COMPARISON: None. FINDINGS: Image quality: Excellent. Lungs and pleura: [id number] centrilobular emphysema. Again noted is narrowing of the right u pper lobe bronchus. There are airspace opacities in the right upper, middle and lower lobes. Right up per lobe opacity is slightly less dense. Right middle and lower lobe opacities are increased, likely secondary to pneumonia or aspiration. There are multiple small lung nodules bilaterally, unchanged. No pleural effusions or pneumothorax. Central and peripheral airways are patent and normal in calibe r. Mediastinum: Heart size is normal. No pericardial effusion. Mildly enlarged mediastinal lymph nodes are stable in size. Thoracic aorta and central pulmonary arteries are normal in size. Esophagus is normal in caliber. Mild concentric thickening of the esophagus. There is a small hiatal hernia. Bones and chest wall: No suspicious bony lesions. No vertebral body compression fractures. No axil klaus or supraclavicular adenopathy by size criteria. Thyroid gland is normal. Abdomen: Bilateral adrenal thickening appears unchanged. There is mild intrahepatic biliary dilation , likely related to cholecystectomy. Visualized upper abdominal solid organs appear normal. Upper ab dominal bowel loops are normal in caliber. IMPRESSION: 1. Right lung opacities are present, increased in right middle lobe and lower lobe, consistent with p neumonia or aspiration. There are chronic airspace opacities in the right upper lobe, which could obs cure a mass. Recommend follow-up CT after adequate treatment. 2. Small lung nodules bilaterally are stable. Recommend a short-term follow-up in 3 months. 3. Moderate to severe centrilobular emphysema. 4. Mild mediastinal lymphadenopathy. 5. Mild concentric esophageal thickening may be secondary to gastroesophageal reflux. Reviewed by: Rupinder Wood MD on 09/19/2020 9:16 PM PDT Approved by: Rupinder Wood MD on 09/19/2020 9:16 PM PDT Station ID: [id number]
[2020-09-19 21:34] LABS: CALCIUM 9.4 mg/dL (8.5-10.3); CREATININE 1.9 mg/dL (0.6-1.2); POTASSIUM 4.7 mmol/L (3.5-5.0)
[2020-09-19 21:39] LABS: LACTIC ACID, VENOUS 2.5 mmol/L (0.5-2.2)
[2020-09-19] MEDS: LACTATED RINGERS 1,000 ML IV SCH (21:50)
[2020-09-19] MEDS: ACETAMINOPHEN 325 MG TABLET PO PRN (22:30)
[2020-09-19] MEDS ORDERED: INSULIN GLARGINE 300 UNIT/3 ML PEN SUBQ SCH (22:58)
[2020-09-19] MEDS: METOPROLOL TARTRATE 25 MG TABLET PO SCH (23:46)
[2020-09-19] MEDS: SODIUM CHLORIDE FLUSH 0.9% 10 ML SYRINGE IVP SCH (23:46)
[2020-09-20] MEDS: PIPERACILLIN/TAZOBACTAM 4.5 GM in SODIUM CHLORIDE 0.9% MINIBAG 100 ML IV SCH ×3 (02:36→18:00)
[2020-09-20 04:58] LABS: BASOPHILS % (AUTO) 0.3 %; EOSINOPHILS # (AUTO) 0.1 10^3/uL (0.0-0.7); EOSINOPHILS % (AUTO) 0.5 %; HCT - HEMATOCRIT 30.4 % (42.0-52.0); HGB - HEMOGLOBIN 9.5 g/dL (14.0-18.0); LYMPHOCYTES # (AUTO) 1.7 10^3/uL (1.5-3.5); LYMPHOCYTES % (AUTO) 11.1 %; MEAN CORPUSCULAR HEMOGLOBIN 25.9 pg (27.0-31.0); MEAN CORPUSCULAR HGB CONC 31.3 g/dL (32.0-36.0); MEAN CORPUSCULAR VOLUME 82.8 fL (80.0-94.0); MEAN PLATELET VOLUME 9.3 fL (7.4-11.4); MONOCYTES # (AUTO) 0.9 10^3/uL (0.0-1.0); NEUTROPHILS # (AUTO) 12.5 10^3/uL (1.5-6.6); NEUTROPHILS % (AUTO) 81.4 %; PLT - PLATELET COUNT 545 10^3/uL (130-450); RED BLOOD COUNT 3.67 10^6/uL (4.70-6.10); RED CELL DISTRIBUTION WIDTH 15.4 % (12.0-15.0); WHITE BLOOD COUNT 15.4 x10^3/uL (4.8-10.8)
[2020-09-20 05:08] LABS: CALCIUM 9.3 mg/dL (8.5-10.3); CREATININE 1.7 mg/dL (0.6-1.2); POTASSIUM 4.7 mmol/L (3.5-5.0)
[2020-09-20 05:32] LABS: FERRITIN 134.3 ng/mL (23.9-336.2)
[2020-09-20] MEDS ORDERED: METOCLOPRAMIDE 10 MG TABLET PO SCH ×2 (06:00)
[2020-09-20] MEDS: METOCLOPRAMIDE 10 MG TABLET PO SCH ×3 (06:42→16:59)
[2020-09-20] MEDS ORDERED: CYANOCOBALAMIN 1,000 MCG/ML VIAL IM ONE (07:20)
[2020-09-20] MEDS ORDERED: INSULIN ASPART 300 UNIT/3 ML PEN SUBQ ONE (07:56)
[2020-09-20] MEDS ORDERED: INSULIN GLARGINE 300 UNIT/3 ML PEN SUBQ SCH ×2 (08:00→21:00)
[2020-09-20] MEDS: LACTATED RINGERS 1,000 ML IV SCH (08:05)
[2020-09-20] MEDS: LORazepam 0.5 MG TABLET PO SCH (08:06)
[2020-09-20] MEDS: METOPROLOL TARTRATE 25 MG TABLET PO SCH ×2 (08:06→20:37)
[2020-09-20] MEDS: ENOXAPARIN 40 MG/0.4 ML SYRINGE SUBQ SCH (08:07)
[2020-09-20] MEDS: INSULIN ASPART 300 UNIT/3 ML PEN SUBQ SCH ×4 (08:08→20:39)
[2020-09-20] MEDS: PANTOPRAZOLE 40 MG VIAL IVP SCH (08:12)
[2020-09-20] MEDS: SODIUM CHLORIDE FLUSH 0.9% 10 ML SYRINGE IVP SCH ×2 (08:12→16:53)
[2020-09-20] MEDS ORDERED: VARENICLINE TARTRATE 1 MG PO SCH (09:00)
[2020-09-20] MEDS ORDERED: METOPROLOL TARTRATE 25 MG TABLET PO SCH (09:00)
[2020-09-20] MEDS ORDERED: PREGABALIN 25 MG CAPSULE PO SCH (09:00)
[2020-09-20] MEDS ORDERED: PREGABALIN 100 MG CAPSULE PO SCH (09:00)
--- NOTE | 2020-09-20 09:02 | Ultrasound Report ---
PROCEDURE: Retroperitoneal INDICATIONS: New acute kidney injury with signs/symptoms of BPH and LUTS TECHNIQUE: Real-time scanning was performed of the retroperitoneal organs, with image documentation. COMPARISON: None. FINDINGS: Both kidneys are normal in size and appearance. No shadowing calculus or hydronephrosis. The prostate measures approximately 3.7 x 4.5 x 4.9 cm, yielding a volume of 53 mL, enlarged. Mild concentric urinary bladder wall thickening with suggestion of trabeculation, raising concern for chronic outlet obstruction. IMPRESSION: Prostatomegaly with findings suggestive of chronic urinary bladder outlet obstruction. Reviewed by: Torin Villa MD on 09/20/2020 9:00 AM PDT Approved by: Torin Villa MD on 09/20/2020 9:00 AM PDT Station ID: [id number]
[2020-09-20 09:24] LABS: ABSOLUTE RETICS # AUTO 0.025 10^6/uL (0.020-0.110); RED BLOOD COUNT 3.6 10^6/uL (4.70-6.10); RETICULOCYTE COUNT % (AUTO) 0.7 % (0.5-2.3)
[2020-09-20 09:47] LABS: % IRON SATURATION 7 % (20-50); IRON 13 ug/dL (45-182); TOTAL IRON BINDING CAPACITY 195 ug/dL (250-450); TRANSFERRIN 139 mg/dL (180-329)
[2020-09-20] MEDS ORDERED: IPRATROPIUM/ALBUTEROL 3 ML NEB INH PRN (10:06)
[2020-09-20] MEDS ORDERED: ALBUTEROL NEB 2.5 MG/3 ML INH PRN (10:07)
[2020-09-20 10:14] LABS: PSA FREE 0.1 ng/mL (0.16-2.81)
[2020-09-20 10:15] LABS: PSA TOTAL 0.4 ng/mL (0.000-2.000)
[2020-09-20] MEDS: SODIUM CHLORIDE FLUSH 0.9% 10 ML SYRINGE IVP PRN (10:22)
[2020-09-20 11:31] LABS: ESTIMATED AVERAGE GLUCOSE 306 mg/dL (70-100); HEMOGLOBIN A1c% 12.3 % (4.27-6.07)
[2020-09-20] MEDS: TAMSULOSIN 0.4 MG CAPSULE PO SCH (11:38)
[2020-09-20] MEDS: FERROUS GLUCONATE 324 MG TABLET PO SCH (11:38)
--- NOTE | 2020-09-20 11:50 | PROVIDER PROGRESS NOTE ---
Assessment/Plan - Problem List (1) Sepsis Qualifiers: Sepsis type: sepsis due to unspecified organism Sepsis acute organ dysfunction status: with acute organ dysfunction Severe sepsis acute organ dysfunction type: acute renal failure Acute renal failure type: unspecified Severe sepsis shock status: without septic shock Qualified Code(s): A41.9 - Sepsis, unspecified organism; R65.20 - Severe sepsis without septic shock; N17.9 - Acute kidney failure, unspecified Assessment/Plan: 09/20 Improved, patient report he feel better, She has 92% sats on room air without tachypnea. patient's tachycardia and elevated lactic acid are resolved. Patient's WBC is slightly reduced. Patient has a history of elevated WBC. Continue Zosyn antibiotics, continue intravenous IV fluids, continue laboratory and vital signs monitor (2) Aspiration pneumonia 09/20, Improved, patient has 92% sats on room air. Patient still present cough as his chronic status, Sputum culture is ordered. Continue Zosyn. Continue dysphagia pured diet, order ST. Aspiration precaution to nurse care (3) Dysphagia, oropharyngeal phase Conclusion/Plan: Speaking with GI surgeon, general surgeon plan to have EGD on this afternoon, NPO, IVF (4) Type 2 diabetes mellitus with neurologic complication, with long-term current use of insulin Controlled diabetic, sugar is still over 300 in the morning. Add the morning Lantus, and novolog, continue slide scale, ACHS check glucose, and continue Hypoglycemia protocol (5) Ischemic cardiomyopathy Conclusion/Plan: discussed with pt for the risk factors which can further worsen his Cardiomyopathy, pt will be benefit from BP control, DM control and quit of cigarette smoking. pt was Maximal medical management advised in the previous because of distal RCA stenosis/blockage, no approachable for stenting (6) History of latent tuberculosis Conclusion/Plan: Patient had biopsy to show scar tissue in the past. pt has hx of Constant sweats, weight loss. Already treated with 3 months of INH and rifampin in the past. CT of the chest was ordered in the emergency room which is not clear if neoplasm, Mild mediastinal lymphadenopathy could be reactive from infection. CT also found small bilateral nodules, which recommend followup with in 3 months image study (7) Weight loss, non-intentional Conclusion/Plan: likely Due to dysphagia. pt has no fever and other of type B symptoms. continue Nutrition consult, CT of the chest was ordered in the emergency room which is not clear if neoplasm, Mild mediastinal lymphadenopathy could be reactive from infection. He has already been evaluated by oncology for myeloproliferative disease which was negative, and that will not be repeated. (8) SANDRINE (acute kidney injury) Conclusion/Plan: improved, creatinine 1.7 now from 2.0 at admission. his hyponatremia is improved as well, likely due to dehydration and poor p.o. intake since every time he tries to drink thin liquids he aspirates. Continue lactated Ringer's at 100 cc an hour continue lab monitor (9) Chronic anemia Conclusion/Plan: HGB is 9.5 stable Iron studies show Significant iron deficiency, B12 deficiency. iron and B12 ordered for patient order Check stool for fecal occult blood (10) BPH with LUTS by description. check PSA, unremarkable check retroperitoneal US Show chronic prostate obstruction, But the patient can urinate 1250 cc on last night, no Alberto now. add Flomax (11)GERD Patient has significantly hx of GERD, and esophagitis, with hx of severe Dysphagia, We consult with GI surgeon, plan to have EGD on this afternoon, order IV Protonix, GI cocktail as needed - Current Meds Current Meds: Current Medications Generic Name Dose Route Start Last Admin Trade Name Freq PRN Reason Stop Dose Admin Acetaminophen 650 mg 09/19/20 20:38 09/19/20 22:30 Acetaminophen 325 Mg Tablet PO 650 mg Q4HR PRN Administration Pain 1 to 4 Enoxaparin Sodium 40 mg 09/20/20 09:00 09/20/20 08:07 Enoxaparin 40 Mg/0.4 Ml Syringe SUBQ 40 mg DAILY BRENDA Administration Ferrous Gluconate 324 mg 09/20/20 11:00 09/20/20 11:38 Ferrous Gluconate 324 Mg Tablet PO 324 mg DAILYWM BRENDA Administration Lactated Ringer's 1,000 mls @ 100 mls/hr 09/19/20 21:00 09/20/20 08:05 Lr IV 100 mls/hr .Q10H BRENDA Administration Piperacillin Sod/Tazobactam 100 mls @ 25 mls/hr 09/20/20 02:00 09/20/20 10:27 Sod 4.5 gm/ Sodium Chloride IV 25 mls/hr Q8H BRENDA Administration Insulin Aspart 3 - 11 unit 09/20/20 08:00 09/20/20 08:08 Insulin Aspart 300 Unit/3 Ml Pen SUBQ 11 unit 0800,1200,1700,2100 BRENDA Administration Protocol Insulin Glargine 10 unit 09/19/20 22:58 09/19/20 23:08 Insulin Glargine 300 Unit/3 Ml Pen SUBQ 10 unit QPM BRENDA Administration Insulin Glargine 8 unit 09/20/20 08:00 09/20/20 08:10 Insulin Glargine 300 Unit/3 Ml Pen SUBQ 8 unit QDBREAKFAST BRENDA Administration Lorazepam 0.5 mg 09/20/20 09:00 09/20/20 08:06 Lorazepam 0.5 Mg Tablet PO 0.5 mg DAILY BRENDA Administration Metoclopramide HCl 5 mg 09/20/20 07:00 09/20/20 11:39 Metoclopramide 10 Mg Tablet PO 5 mg AC BRENDA Administration Metoprolol Tartrate 25 mg 09/19/20 23:00 09/20/20 08:06 Metoprolol Tartrate 25 Mg Tablet PO 25 mg BID BRENDA Administration Non-Formulary Medication 1 mg 09/20/20 09:00 09/20/20 11:28 Varenicline Tartrate [Chantix] PO Not Given BID BRENDA Pantoprazole Sodium 40 mg 09/20/20 08:00 09/20/20 08:12 Pantoprazole 40 Mg Vial IVP 40 mg QDAC BRENDA Administration Sodium Chloride 10 ml 09/19/20 20:38 09/20/20 10:22 Sodium Chloride Flush 0.9% 10 Ml Syringe IVP 10 ml PRN PRN Administration NEEDED PER PROVIDER ORDERS Sodium Chloride 10 ml 09/20/20 01:00 09/20/20 08:12 Sodium Chloride Flush 0.9% 10 Ml Syringe IVP 10 ml 0100,0900,1700 BRENDA Administration Tamsulosin HCl 0.4 mg 09/20/20 11:00 09/20/20 11:38 Tamsulosin 0.4 Mg Capsule PO 0.4 mg DAILY BRENDA Administration - Lab Result Fish Bone Diagrams: 09/20/20 04:25 09/20/20 04:25 - Additional Planning My Orders: My Active Orders 09/20/20 CUL, RESPIRATORY [RM] Urgent Clinical Swallow Evaluation [ST] Routine 09/20/20 08:00 Insulin Glargine [Lantus Solostar] 8 unit SUBQ QDBREAKFAST Pantoprazole [Protonix] 40 mg IVP QDAC 09/20/20 09:00 Varenicline Tartrate [Chantix] 1 mg PO BID 09/20/20 10:06 Nebulizer/MDI Tx. [RC] QID Resp Teach Nebulizer/MDI [RC] .ONCE Ipratropium/Albuterol [Duoneb] 3 ml INH RTQID PRN 09/20/20 10:07 Nebulizer/MDI Tx. [RC] QID Resp Teach Nebulizer/MDI [RC] .ONCE Albuterol 2.5 mg INH QID PRN 09/20/20 11:00 Ferrous Gluconate [Fergon] 324 mg PO DAILYWM Tamsulosin [Flomax] 0.4 mg PO DAILY 09/20/20 11:21 NPO except Meds [DIET] 09/21/20 05:00 CRP - C-REACTIVE PROTEIN [CHEM] DAILYLAB 09/22/20 05:00 CRP - C-REACTIVE PROTEIN [CHEM] DAILYLAB 09/23/20 05:00 CRP - C-REACTIVE PROTEIN [CHEM] DAILYLAB 09/24/20 05:00 CRP - C-REACTIVE PROTEIN [CHEM] DAILYLAB 09/25/20 05:00 CRP - C-REACTIVE PROTEIN [CHEM] DAILYLAB Subjective - Subjective Patient Reports: Feeling Better Objective Vital Signs: Vital Signs - 24 hr 09/19/20 09/19/20 09/19/20 18:31 19:40 19:53 Temperature 36.6 C Heart Rate 102 H 104 H 89 Heart Rate [ Brachial] Respiratory 18 14 16 Rate Blood Pressure 139/72 H 157/75 H 157/75 H Blood Pressure [Right Brachial artery] O2 Saturation 100 100 97 09/19/20 09/19/20 09/19/20 19:58 21:12 21:51 Temperature 37.8 C 36.8 C Heart Rate 98 110 H Heart Rate [ 117 H Brachial] Respiratory 15 18 24 Rate Blood Pressure 109/70 144/75 H Blood Pressure 159/76 H [Right Brachial artery] O2 Saturation 98 98 98 09/19/20 09/19/20 09/19/20 22:30 23:43 23:46 Temperature 36.8 C 37.7 C Heart Rate 117 H Heart Rate [ 109 H Brachial] Respiratory 24 20 Rate Blood Pressure 104/62 Blood Pressure 104/62 [Right Brachial artery] O2 Saturation 98 93 09/20/20 09/20/20 07:51 11:36 Temperature 37.4 C Heart Rate Heart Rate [ 89 76 Brachial] Respiratory 16 20 Rate Blood Pressure Blood Pressure 117/64 105/64 [Right Brachial artery] O2 Saturation 91 L 92 Oxygen O2 Source Room air I&O (Last 24 Hrs): Intake and Output Totals x24h 09/18/20 09/19/20 09/20/20 23:59 23:59 23:59 Intake Total 2100 1220 Output Total 1250 Balance 2100 -30 General: Alert, Cooperative, No acute distress HEENT: Atraumatic Neck: Supple Lymphatic: no adenopathy Neuro: Alert, Non Focal Cardiovascular: Regular rate, Normal S1, Normal S2 Respiratory: Chest non-tender, No respiratory distress Abdomen: Normal bowel sounds, Soft, No tenderness Extremities: Normal pulses - Results Results: Laboratory Results WBC 15.4 x10^3/uL (4.8-10.8) H 09/20/20 04:25 RBC 3.60 10^6/uL (4.70-6.10) L 09/20/20 09:15 Hgb 9.5 g/dL (14.0-18.0) L 09/20/20 04:25 Hct 30.4 % (42.0-52.0) L 09/20/20 04:25 MCV 82.8 fL (80.0-94.0) 09/20/20 04:25 MCH 25.9 pg (27.0-31.0) L 09/20/20 04:25 MCHC 31.3 g/dL (32.0-36.0) L 09/20/20 04:25 RDW 15.4 % (12.0-15.0) H 09/20/20 04:25 Plt Count 545 10^3/uL (130-450) H 09/20/20 04:25 MPV 9.3 fL (7.4-11.4) 09/20/20 04:25 Reticulocyte % (Auto) 0.70 % (0.5-2.3) 09/20/20 09:15 Neut # (Auto) 12.5 10^3/uL (1.5-6.6) H 09/20/20 04:25 Lymph # (Auto) 1.7 10^3/uL (1.5-3.5) 09/20/20 04:25 [place] # (Auto) 0.9 10^3/uL (0.0-1.0) 09/20/20 04:25 Eos # (Auto) 0.1 10^3/uL (0.0-0.7) 09/20/20 04:25 Baso # (Auto) 0.0 10^3/uL (0.0-0.1) 09/20/20 04:25 Absolute Nucleated RBC 0.00 x10^3/uL 09/20/20 04:25 Nucleated RBC % 0.0 /100WBC 09/20/20 04:25 Absolute Retic 0.025 10^6/uL (0.020-0.110) 09/20/20 09:15 Sodium 130 mmol/L (135-145) L 09/20/20 04:25 Potassium 4.7 mmol/L (3.5-5.0) 09/20/20 04:25 Chloride 98 mmol/L (101-111) L 09/20/20 04:25 Carbon Dioxide 22 mmol/L (21-32) 09/20/20 04:25 Anion Gap 10.0 (6-13) 09/20/20 04:25 BUN 37 mg/dL (6-20) H 09/20/20 04:25 Creatinine 1.7 mg/dL (0.6-1.2) H 09/20/20 04:25 Estimated GFR (MDRD) 41 (>89) L 09/20/20 04:25 Glucose 330 mg/dL (70-100) H 09/20/20 04:25 POC Whole Bld Glucose 163 mg/dL (70 - 100) H 09/20/20 11:33 Estimat Average Glucose 306 mg/dL (70-100) H 09/20/20 04:25 Hemoglobin A1c % 12.3 % (4.27-6.07) H 09/20/20 04:25 Lactic Acid 1.2 mmol/L (0.5-2.2) 09/20/20 00:33 Calcium 9.3 mg/dL (8.5-10.3) 09/20/20 04:25 Iron 13 ug/dL (45-182) L 09/20/20 09:15 TIBC 195 ug/dL (250-450) L 09/20/20 09:15 % Saturation 7 % (20-50) L 09/20/20 09:15 Transferrin 139 mg/dL (180-329) L 09/20/20 09:15 Ferritin 134.3 ng/mL (23.9-336.2) 09/20/20 04:25 Total Bilirubin 0.5 mg/dL (0.2-1.0) 09/19/20 19:04 AST 17 IU/L (10-42) 09/19/20 19:04 ALT 17 IU/L (10-60) 09/19/20 19:04 Alkaline Phosphatase 79 IU/L (42-121) 09/19/20 19:04 Lactate Dehydrogenase 88 IU/L (91-225) L 09/20/20 04:25 C-Reactive Protein 25.2 mg/dL (0-1.0) H 09/20/20 04:25 Total Protein 7.8 g/dL (6.7-8.2) 09/19/20 19:04 Albumin 2.5 g/dL (3.2-5.5) L 09/19/20 19:04 Globulin 5.3 g/dL (2.1-4.2) H 09/19/20 19:04 Albumin/Globulin Ratio 0.5 (1.0-2.2) L 09/19/20 19:04 Lipase 18 U/L (22-51) L 09/19/20 19:04 Prostate Specific Ag 0.400 ng/mL (0.000-2.000) 09/20/20 09:15 Free PSA 0.100 ng/mL (0.16-2.81) L 09/20/20 09:15 % Free PSA Calc 25 % (25-100) 09/20/20 09:15 Vitamin B12 144 pg/mL (180-914) L 09/20/20 04:25 Urine Color YELLOW 09/19/20 19:30 Urine Clarity CLEAR (CLEAR) 09/19/20 19:30 Urine pH 5.5 PH (5.0-7.5) 09/19/20 19:30 Ur Specific [place] 1.010 (1.002-1.030) 09/19/20 19:30 Urine Protein NEGATIVE mg/dL (NEGATIVE) 09/19/20 19:30 Urine Glucose (UA) >=1000 mg/dL (NEGATIVE) H 09/19/20 19:30 Urine Ketones NEGATIVE mg/dL (NEGATIVE) 09/19/20 19:30 Urine Occult Blood SMALL (NEGATIVE) H 09/19/20 19:30 Urine Nitrite NEGATIVE (NEGATIVE) 09/19/20 19:30 Urine Bilirubin NEGATIVE (NEGATIVE) 09/19/20 19:30 Urine Urobilinogen 0.2 (NORMAL) E.U./dL (NORMAL) 09/19/20 19:30 Ur Leukocyte Esterase NEGATIVE (NEGATIVE) 09/19/20 19:30 Urine RBC 0-5 /HPF (0-5) 09/19/20 19:30 Urine WBC 0-3 /HPF (0-3) 09/19/20 19:30 Ur Squamous Epith Cells RARE Squamous (<= Few) 09/19/20 19:30 Urine Bacteria None Seen /HPF (None Seen) 09/19/20 19:30 Urine Mucus Few Strands 09/19/20 19:30 Urine Culture Comments NOT INDICATED 09/19/20 19:30 Nasal Adenovirus (PCR) NOT DETECTED 09/19/20 20:00 Nasal B. parapertussis DNA (PCR) NOT DETECTED 09/19/20 20:00 Nasal Coronavir 229E PCR NOT DETECTED 09/19/20 20:00 Nasal Coronavir HKU1 PCR NOT DETECTED 09/19/20 20:00 Nasal Coronavir NL63 PCR NOT DETECTED 09/19/20 20:00 Nasal Coronavir OC43 PCR NOT DETECTED 09/19/20 20:00 Nasal Enterovir/Rhinovir PCR NOT DETECTED 09/19/20 20:00 Nasal Influenza B PCR NOT DETECTED 09/19/20 20:00 Nasal Influenza A PCR NOT DETECTED 09/19/20 20:00 Nasal Parainfluen 1 PCR NOT DETECTED 09/19/20 20:00 Nasal Parainfluen 2 PCR NOT DETECTED 09/19/20 20:00 Nasal Parainfluen 3 PCR NOT DETECTED 09/19/20 20:00 Nasal Parainfluen 4 PCR NOT DETECTED 09/19/20 20:00 Nasal RSV (PCR) NOT DETECTED 09/19/20 20:00 Nasal B.pertussis DNA PCR NOT DETECTED 09/19/20 20:00 Nasal C.pneumoniae (PCR) NOT DETECTED 09/19/20 20:00 [place] Human Metapneumo PCR NOT DETECTED 09/19/20 20:00 Nasal M.pneumoniae (PCR) NOT DETECTED 09/19/20 20:00 Nasal SARS-CoV-2 (PCR) NOT DETECTED 09/19/20 20:00 - Procedures Procedures: Procedures CLOSED ENDOSCOPIC BIOPSY OF LARGE INTESTINE (12/28/14) ENDO RECTUM POLYPECTOMY (12/28/14) ESOPHAGOGASTRODUODENOSCOPY [EGD] W/CLOSED BIOPSY (12/28/14) Sepsis Event Note (H) - Evaluation Current Stage of Sepsis: Sepsis Possible source of Sepsis: positive: Pulmonary - Sepsis Criteria Sepsis Criteria: Recorded Heart Rate greater than 90 bpm, WBC count greater than 12,000 or less than 4000, Metabolic: lactate > 2 mmol/L ABX Reporting Has patient been on IV antibiotics over the past 48 hours?: Yes Current Medications - Current Medications Current Medications: Active Medications Acetaminophen (Acetaminophen 325 Mg Tablet) 650 mg PO Q4HR PRN PRN Reason: Pain 1 to 4 Last Admin: 09/19/20 22:30 Dose: 650 mg Documented by: Hydrocodone Bitart/Acetaminophen (Hydrocod/Acetam 5/325 Mg Tablet) 1 tab PO Q6H PRN PRN Reason: PAIN Albuterol (Albuterol Neb 2.5 Mg/3 Ml) 2.5 mg INH QID PRN PRN Reason: Wheezing Albuterol/Ipratropium (Ipratropium/Albuterol 3 Ml Neb) 3 ml INH RTQID PRN PRN Reason: Shortness of Air/Wheezing Atorvastatin Calcium (Atorvastatin 10 Mg Tablet) 20 mg PO QPM [facility] Enoxaparin Sodium (Enoxaparin 40 Mg/0.4 Ml Syringe) 40 mg SUBQ DAILY [facility] Last Admin: 09/20/20 08:07 Dose: 40 mg Documented by: Ferrous Gluconate (Ferrous Gluconate 324 Mg Tablet) 324 mg PO DAILYWM [facility] Last Admin: 09/20/20 11:38 Dose: 324 mg Documented by: Lactated Ringer's (Lr) 1,000 mls @ 100 mls/hr IV .Q10H [facility] Last Admin: 09/20/20 08:05 Dose: 100 mls/hr Documented by: Piperacillin Sod/Tazobactam (Sod 4.5 gm/ Sodium Chloride) 100 mls @ 25 mls/hr IV Q8H [facility] Last Admin: 09/20/20 10:27 Dose: 25 mls/hr Documented by: Insulin Aspart (Insulin Aspart 300 Unit/3 Ml Pen) 3 - 11 unit SUBQ 0800,1200,1700,2100 [facility]; Protocol Last Admin: 09/20/20 11:49 Dose: 3 unit Documented by: Insulin Glargine (Insulin Glargine 300 Unit/3 Ml Pen) 10 unit SUBQ QPM [facility] Last Admin: 09/19/20 23:08 Dose: 10 unit Documented by: Insulin Glargine (Insulin Glargine 300 Unit/3 Ml Pen) 8 unit SUBQ QDBREAKFAST [facility] Last Admin: 09/20/20 08:10 Dose: 8 unit Documented by: Lorazepam (Lorazepam 0.5 Mg Tablet) 0.5 mg PO DAILY [facility] Last Admin: 09/20/20 08:06 Dose: 0.5 mg Documented by: Metoclopramide HCl (Metoclopramide 10 Mg Tablet) 5 mg PO AC [facility] Last Admin: 09/20/20 11:39 Dose: 5 mg Documented by: Metoprolol Tartrate (Metoprolol Tartrate 25 Mg Tablet) 25 mg PO BID [facility] Last Admin: 09/20/20 08:06 Dose: 25 mg Documented by: Multi-Ingredient Mouthwash/Gargle (Gi Cocktail 120 Ml Bottle) 30 ml PO Q4H PRN PRN Reason: Abdominal Pain Non-Formulary Medication (Varenicline Tartrate [Chantix]) 1 mg PO BID [facility] Last Admin: 09/20/20 11:28 Dose: Not Given Documented by: Ondansetron HCl (Ondansetron Odt 4 Mg Tablet) 4 mg TL Q6HR PRN PRN Reason: Nausea / Vomiting Ondansetron HCl (Ondansetron 4 Mg/2 Ml Vial) 4 mg IVP Q6HR PRN PRN Reason: Nausea / Vomiting Pantoprazole Sodium (Pantoprazole 40 Mg Vial) 40 mg IVP QDAC [facility] Last Admin: 09/20/20 08:12 Dose: 40 mg Documented by: Sodium Chloride (Sodium Chloride Flush 0.9% 10 Ml Syringe) 10 ml IVP PRN PRN PRN Reason: NEEDED PER PROVIDER ORDERS Last Admin: 09/20/20 10:22 Dose: 10 ml Documented by: Sodium Chloride (Sodium Chloride Flush 0.9% 10 Ml Syringe) 10 ml IVP 0100,0900,1700 [facility] Last Admin: 09/20/20 08:12 Dose: 10 ml Documented by: Tamsulosin HCl (Tamsulosin 0.4 Mg Capsule) 0.4 mg PO DAILY [facility] Last Admin: 09/20/20 11:38 Dose: 0.4 mg Documented by: Pregabalin [Lyrica] 150 mg PO TID 09/10/13 Insulin Detemir [Levemir Flextouch] 40 units SQ BID 07/12/14 Atorvastatin [Lipitor] 20 mg PO QPM 02/23/20 Acetaminophen [Tylenol Extra Strength] 500 mg PO PRN PRN MDD 3000 MG 02/24/20 Metoprolol Tartrate 50 mg PO BID 02/24/20 Amlodipine Besylate [Norvasc] 10 mg PO DAILY 09/20/20 Celecoxib [Celebrex] 200 mg PO DAILY 09/20/20 Ipratropium/Albuterol [Combivent Respimat] 1 puffs INH Q6H 09/20/20 Isosorbide Mononitrate [Isosorbide Mononitrate ER] 60 mg PO DAILY 09/20/20 Pantoprazole [Protonix] 40 mg PO BID 09/20/20 metFORMIN [Glucophage] 500 mg PO BID 09/20/20
[2020-09-20] MEDS ORDERED: GI COCKTAIL 120 ML BOTTLE PO PRN (12:23)
--- NOTE | 2020-09-20 13:31 | ANESTHESIA ---
Pre-Anesthesia VS, & Labs - Diagnosis dysphagia - Procedure EGD Vital Signs: Temp Pulse Resp BP Pulse Ox 37.4 C 76 20 105/64 92 09/20/20 07:51 09/20/20 11:36 09/20/20 11:36 09/20/20 11:36 09/20/20 11:36 Height: 5 ft 4 in Weight (kg): 70 kg Body Mass Index: 26.4 BMI Classification: Overweight - NPO >8 hours - Lab Results Current Lab Results: Laboratory Tests 09/20/20 11:33: POC Whole Bld Glucose 163 H 09/20/20 09:15: Prostate Specific Ag 0.400, Free PSA 0.100 L, % Free PSA Calc 25 09/20/20 09:15: Iron 13 L, TIBC 195 L, % Saturation 7 L, Transferrin 139 L 09/20/20 09:15: RBC 3.60 L, Reticulocyte % (Auto) 0.70, Absolute Retic 0.025 09/20/20 07:48: POC Whole Bld Glucose 351 H 09/20/20 04:25: C-Reactive Protein 25.2 H 09/20/20 04:25: Lactate Dehydrogenase 88 L 09/20/20 04:25: Ferritin 134.3, Vitamin B12 144 L 09/20/20 04:25: Estimat Average Glucose 306 H, Hemoglobin A1c % 12.3 H 09/20/20 04:25: Sodium 130 L, Potassium 4.7, Chloride 98 L, Carbon Dioxide 22, Anion Gap 10.0, BUN 37 H, Creatinine 1.7 H, Estimated GFR (MDRD) 41 L, Glucose 330 H, Calcium 9.3 09/20/20 04:25: WBC 15.4 H, RBC 3.67 L, Hgb 9.5 L, Hct 30.4 L, MCV 82.8, MCH 25.9 L, MCHC 31.3 L, RDW 15.4 H, Plt Count 545 H, MPV 9.3, Neut # (Auto) 12.5 H, Lymph # (Auto) 1.7, [place] # (Auto) 0.9, Eos # (Auto) 0.1, Baso # (Auto) 0.0, Absolute Nucleated RBC 0.00, Nucleated RBC % 0.0 09/20/20 00:33: Lactic Acid 1.2 09/19/20 21:21: Lactic Acid 2.5 H 09/19/20 21:21: Sodium 127 L, Potassium 4.7, Chloride 92 L, Carbon Dioxide 22, Anion Gap 13.0, BUN 48 H, Creatinine 1.9 H, Estimated GFR (MDRD) 36 L, Glucose 300 H, Calcium 9.4 09/19/20 20:05: Lactic Acid 1.4 09/19/20 19:04: Sodium 125 L, Potassium 4.3, Chloride 86 L, Carbon Dioxide 24, Anion Gap 15.0 H, BUN 51 H, Creatinine 2.0 H, Estimated GFR (MDRD) 34 L, Glucose 353 H, Calcium 9.6, Total Bilirubin 0.5, AST 17, ALT 17, Alkaline Phosphatase 79, Total Protein 7.8, Albumin 2.5 L, Globulin 5.3 H, Albumin/Globulin Ratio 0.5 L, Lipase 18 L 09/19/20 19:04: WBC 16.3 H, RBC 3.65 L, Hgb 9.5 L, Hct 29.9 L, MCV 81.9, MCH 26.0 L, MCHC 31.8 L, RDW 15.7 H, Plt Count 555 H, MPV 9.9, Neut # (Auto) 12.9 H, Lymph # (Auto) 2.2, [place] # (Auto) 1.0, Eos # (Auto) 0.1, Baso # (Auto) 0.0, Absolute Nucleated RBC 0.00, Nucleated RBC % 0.0 Lab results reviewed: Yes Fish Bones: 09/20/20 04:25 09/20/20 04:25 Home Medications and Allergies Home Medications: Ambulatory Orders Amlodipine Besylate [Norvasc] 10 mg PO DAILY 09/20/20 Celecoxib [Celebrex] 200 mg PO DAILY 09/20/20 Ipratropium/Albuterol [Combivent Respimat] 1 puffs INH Q6H 09/20/20 Isosorbide Mononitrate [Isosorbide Mononitrate ER] 60 mg PO DAILY 09/20/20 Pantoprazole [Protonix] 40 mg PO BID 09/20/20 metFORMIN [Glucophage] 500 mg PO BID 09/20/20 Active Medications Acetaminophen (Acetaminophen 325 Mg Tablet) 650 mg PO Q4HR PRN PRN Reason: Pain 1 to 4 Last Admin: 09/19/20 22:30 Dose: 650 mg Documented by: Hydrocodone Bitart/Acetaminophen (Hydrocod/Acetam 5/325 Mg Tablet) 1 tab PO Q6H PRN PRN Reason: PAIN Albuterol (Albuterol Neb 2.5 Mg/3 Ml) 2.5 mg INH QID PRN PRN Reason: Wheezing Albuterol/Ipratropium (Ipratropium/Albuterol 3 Ml Neb) 3 ml INH RTQID PRN PRN Reason: Shortness of Air/Wheezing Atorvastatin Calcium (Atorvastatin 10 Mg Tablet) 20 mg PO QPM [facility] Enoxaparin Sodium (Enoxaparin 40 Mg/0.4 Ml Syringe) 40 mg SUBQ DAILY [facility] Last Admin: 09/20/20 08:07 Dose: 40 mg Documented by: Ferrous Gluconate (Ferrous Gluconate 324 Mg Tablet) 324 mg PO DAILYWM [facility] Last Admin: 09/20/20 11:38 Dose: 324 mg Documented by: Lactated Ringer's (Lr) 1,000 mls @ 100 mls/hr IV .Q10H [facility] Last Admin: 09/20/20 08:05 Dose: 100 mls/hr Documented by: Piperacillin Sod/Tazobactam (Sod 4.5 gm/ Sodium Chloride) 100 mls @ 25 mls/hr IV Q8H [facility] Last Admin: 09/20/20 10:27 Dose: 25 mls/hr Documented by: Insulin Aspart (Insulin Aspart 300 Unit/3 Ml Pen) 3 - 11 unit SUBQ 0800,1200,1700,2100 [facility]; Protocol Last Admin: 09/20/20 11:49 Dose: 3 unit Documented by: Insulin Glargine (Insulin Glargine 300 Unit/3 Ml Pen) 10 unit SUBQ QPM [facility] Last Admin: 09/19/20 23:08 Dose: 10 unit Documented by: Insulin Glargine (Insulin Glargine 300 Unit/3 Ml Pen) 8 unit SUBQ QDBREAKFAST [facility] Last Admin: 09/20/20 08:10 Dose: 8 unit Documented by: Lorazepam (Lorazepam 0.5 Mg Tablet) 0.5 mg PO DAILY [facility] Last Admin: 09/20/20 08:06 Dose: 0.5 mg Documented by: Metoclopramide HCl (Metoclopramide 10 Mg Tablet) 5 mg PO AC [facility] Last Admin: 09/20/20 11:39 Dose: 5 mg Documented by: Metoprolol Tartrate (Metoprolol Tartrate 25 Mg Tablet) 25 mg PO BID [facility] Last Admin: 09/20/20 08:06 Dose: 25 mg Documented by: Multi-Ingredient Mouthwash/Gargle (Gi Cocktail 120 Ml Bottle) 30 ml PO Q4H PRN PRN Reason: Abdominal Pain Non-Formulary Medication (Varenicline Tartrate [Chantix]) 1 mg PO BID [facility] Last Admin: 09/20/20 11:28 Dose: Not Given Documented by: Ondansetron HCl (Ondansetron Odt 4 Mg Tablet) 4 mg TL Q6HR PRN PRN Reason: Nausea / Vomiting Ondansetron HCl (Ondansetron 4 Mg/2 Ml Vial) 4 mg IVP Q6HR PRN PRN Reason: Nausea / Vomiting Pantoprazole Sodium (Pantoprazole 40 Mg Vial) 40 mg IVP QDAC [facility] Last Admin: 09/20/20 08:12 Dose: 40 mg Documented by: Sodium Chloride (Sodium Chloride Flush 0.9% 10 Ml Syringe) 10 ml IVP PRN PRN PRN Reason: NEEDED PER PROVIDER ORDERS Last Admin: 09/20/20 10:22 Dose: 10 ml Documented by: Sodium Chloride (Sodium Chloride Flush 0.9% 10 Ml Syringe) 10 ml IVP 0100,0900,1700 [facility] Last Admin: 09/20/20 08:12 Dose: 10 ml Documented by: Tamsulosin HCl (Tamsulosin 0.4 Mg Capsule) 0.4 mg PO DAILY [facility] Last Admin: 09/20/20 11:38 Dose: 0.4 mg Documented by: Pregabalin [Lyrica] 150 mg PO TID 09/10/13 Insulin Detemir [Levemir Flextouch] 40 units SQ BID 07/12/14 Atorvastatin [Lipitor] 20 mg PO QPM 02/23/20 Acetaminophen [Tylenol Extra Strength] 500 mg PO PRN PRN MDD 3000 MG 02/24/20 Metoprolol Tartrate 50 mg PO BID 02/24/20 Amlodipine Besylate [Norvasc] 10 mg PO DAILY 09/20/20 Celecoxib [Celebrex] 200 mg PO DAILY 09/20/20 Ipratropium/Albuterol [Combivent Respimat] 1 puffs INH Q6H 09/20/20 Isosorbide Mononitrate [Isosorbide Mononitrate ER] 60 mg PO DAILY 09/20/20 Pantoprazole [Protonix] 40 mg PO BID 09/20/20 metFORMIN [Glucophage] 500 mg PO BID 09/20/20 Allergies/Adverse Reactions: Allergies Allergy/AdvReac Type Severity Reaction Status Date / Time No Known Drug Allergies Allergy Verified 09/19/20 19:09 Anes History & Medical History - Anesthetic History Anesthesia Complications: reports: No previous complications Family history of Anesthesia Complications: Denies Family history of Malignant Hyperthermia: Denies - Medical History Cardiovascular: reports: Congestive heart failure (chronic mild sytolic HF), Hypertension, High cholesterol, Coronary artery disease (unable to stent previous [place].), Murmur, Other Pulmonary: reports: COPD, Tuberculosis (Quantiferon Gold (+) 12/2014 w neg CXR, (+) PPD 1997 no Tx. INH/rifamipin recommended & completed 3 months ), Other (aspiration pneumonia) Gastrointestinal: reports: GERD Urinary: reports: Benign prostate hypertrophy, Retention, Renal insuffiency Neuro: reports: Peripheral neuropathy (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 on EEG 01/09 and severe of BUE on EEG 03/2020) Musculoskeletal: reports: Osteoarthritis, Chronic back pain (Seen by [facility] for pain management. Subacromial injection of painful right shoulder August 2020.), Other (ankylosing spondylitis. Followed by [facility]. Last seen May 2020. He etodolac helps. Opted not to put him on biologic agent. past used enbrel and humira and sulfasalazine) Endocrine/Autoimmune: reports: Type 2 diabetes Blood Disorders: reports: None Skin: reports: None Smoking Status: Current every day smoker - Surgical History General: reports: Cholecystectomy, Appendectomy, Colonoscopy (December 28, 2014. Diffuse scattered ulcerations raised on small nodules. BX mild active colitis. 3 mm hyperplastic polyp. Mild to moderate internal hemorrhoids.) Eyes Ears Nose Throat (EENT): reports: Tonsil/Adenoidectomy Cardiothoracic: reports: Other Orthopedic: reports: Shoulder arthroplasty (twice of left, once on right), Arthroscopic surgery (both knees) Exam General: Alert, Oriented x3, Cooperative, No acute distress Dental: Loose/Frag, Poor dentition Mouth Openin Fingerbreadth Neck Mobility: Normal Mallampati classification: II Respiratory: Lungs clear, Normal breath sounds, No respiratory distress, No accessory muscle use Cardiovascular: Regular rate, Normal S1, Normal S2, No murmurs Plan Anesthesia Type: General, Total IV Consent for Procedure(s) Verified and Reviewed: Yes Code Status: Attempt Resuscitation ASA classification: 3-Severe systemic disease Is this case an emergency?: No
--- NOTE | 2020-09-20 13:42 | CONSULTATION NOTE ---
Referring Provider Name of Referring Provider:: Robert Consult Date: 09/20/20 Chief Complaint - Chief Complaint Chief Complaint: Dysphagia History of Present Illness - Admitted From Admitted From:: Home - History Obtained From Records Reviewed: EMR History obtained from: Patient Exam Limitations: None - History of Present Illness HPI Comment/Other: 64-year-old male who was admitted with aspiration pneumonia and complains of 1 year history of dysphagia. He reports progressive coughing with oral intake. His last upper endoscopy was in 2014. He denies any significant pastsurgical history other than a bronchoscopy which was unremarkable. He was admitted to the hospital service started on antibiotics and EGD was requested. In spite of this the patient was started on a dysphagia diet this a.m. He denies any abdominal or other pain. History - Past Medical History Cardiovascular: reports: Congestive heart failure (chronic mild sytolic HF), Hypertension, High cholesterol, Coronary artery disease (unable to stent previous [place].), Murmur, Other Respiratory: reports: COPD, Tuberculosis (Quantiferon Gold (+) 12/2014 w neg CXR, (+) PPD 1997 no Tx. INH/rifamipin recommended & completed 3 months ), Other (aspiration pneumonia) Neuro: reports: Peripheral neuropathy (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 on EEG 01/09 and severe of BUE on EEG 03/2020) Endocrine/Autoimmune: reports: Type 2 diabetes GI: reports: GERD : reports: Benign prostate hypertrophy, Retention, Renal insuffiency HEENT: reports: Chronic vision loss Psych: reports: None Musculoskeletal: reports: Osteoarthritis, Chronic back pain (Seen by [facility] for pain management. Subacromial injection of painful right shoulder August 2020.), Other (ankylosing spondylitis. Followed by [facility]. Last seen May 2020. He etodolac helps. Opted not to put him on biologic agent. past used enbrel and humira and sulfasalazine) Derm: reports: None MRSA Hx?: No - Past Surgical History General: reports: Cholecystectomy, Appendectomy, Colonoscopy (December 28, 2014. Diffuse scattered ulcerations raised on small nodules. BX mild active colitis. 3 mm hyperplastic polyp. Mild to moderate internal hemorrhoids.) Ortho: reports: Shoulder arthroplasty (twice of left, once on right), Arthroscopic surgery (both knees) Cardiovascular: reports: Other HEENT: reports: Tonsil/Adenoidectomy - Family & Social History Family History Comment/Other: He reports his father had a history of coronary artery disease as well as diabetes. ?CHF of cancer of lung. His mother also had diabetes, memory loss. Both are . 1 brother and 2 sisters. Kidney stones. Living arrangement: At home Living Situation: With family Social History Notes: Moved from [facility] 2012. He lives at home with his brother.His brother has a new girlfriend. She is living with them and she is in the process of finalizing her divorce from her . He has been on disability since the due to his arthritis. He has been smoking a pack a day for about 20 years but has been decreasing the amount he is smoking after he was on Chantix. Down to 1/2 ppd. Reports occasional alcohol use. Single. - Substance History Use: Uses substance without health or social issues: Tobacco Abuse: Recurrent use of substance despite neg consequences: Inhalant Abuse Issues: Other (lung damage) Dependence: Experiences withdrawal or developed tolerances: NONE Tobacco Details: Cigarettes - POLST Patient has POLST: No POLST Status: DNR (he doesn't want CPR or intubation) Meds/Allgy - Home Medications Home Medications: Ambulatory Orders Medication Instructions Recorded Confirmed Pregabalin [Lyrica] 150 mg PO TID 09/10/13 08/29/20 Insulin Detemir [Levemir Flextouch] 40 units SQ BID 07/12/14 08/29/20 Atorvastatin [Lipitor] 20 mg PO QPM 02/23/20 09/19/20 Acetaminophen [Tylenol Extra 500 mg PO PRN PRN MDD 3000 MG 02/24/20 09/19/20 Strength] Metoprolol Tartrate 50 mg PO BID 02/24/20 08/29/20 Amlodipine Besylate [Norvasc] 10 mg PO DAILY 09/20/20 Celecoxib [Celebrex] 200 mg PO DAILY 09/20/20 Ipratropium/Albuterol [Combivent 1 puffs INH Q6H 09/20/20 09/20/20 Respimat] Isosorbide Mononitrate [Isosorbide 60 mg PO DAILY 09/20/20 Mononitrate ER] Pantoprazole [Protonix] 40 mg PO BID 09/20/20 metFORMIN [Glucophage] 500 mg PO BID 09/20/20 - Allergies Allergies/Adverse Reactions: Allergies Allergy/AdvReac Type Severity Reaction Status Date / Time No Known Drug Allergies Allergy Verified 09/19/20 19:09 Review of Systems - Constitutional Constitutional: reports: Fatigue - Respiratory Respiratory: reports: Cough, Wheezing - Gastrointestinal Gastrointestinal: reports: Nausea, Vomiting, Other (Difficulty swallowing) Exam - Vital Signs Vital Signs: Vital Signs x48h Temp Pulse Resp BP Pulse Ox 09/20/20 11:36 76 20 105/64 92 09/20/20 07:51 37.4 C 89 16 117/64 91 L - Physical Exam General Appearance: positive: No acute distress Eyes Bilateral: positive: Normal inspection, PERRL, EOMI ENT: positive: ENT inspection nml Neck: positive: Nml inspection Respiratory: positive: Chest non-tender, No respiratory distress, Wheezes Cardiovascular: positive: Regular rate & rhythm Abdomen: positive: Non-tender, No distention. negative: Tenderness, Guarding, Rebound Extremities: positive: Non-tender, Full ROM, Nml appearance Neurologic/Psychiatric: positive: Oriented x3, CN's nml (2-12), Motor nml, Sensation nml, Mood/affect nml Conclusion and Plan - Lab Results Laboratory Results 09/20/20 11:33: POC Whole Bld Glucose 163 H 09/20/20 09:15: Prostate Specific Ag 0.400, Free PSA 0.100 L, % Free PSA Calc 25 09/20/20 09:15: Iron 13 L, TIBC 195 L, % Saturation 7 L, Transferrin 139 L 09/20/20 09:15: RBC 3.60 L, Reticulocyte % (Auto) 0.70, Absolute Retic 0.025 09/20/20 07:48: POC Whole Bld Glucose 351 H 09/20/20 04:25: C-Reactive Protein 25.2 H 09/20/20 04:25: Lactate Dehydrogenase 88 L 09/20/20 04:25: Ferritin 134.3, Vitamin B12 144 L 09/20/20 04:25: Estimat Average Glucose 306 H, Hemoglobin A1c % 12.3 H 09/20/20 04:25: Sodium 130 L, Potassium 4.7, Chloride 98 L, Carbon Dioxide 22, Anion Gap 10.0, BUN 37 H, Creatinine 1.7 H, Estimated GFR (MDRD) 41 L, Glucose 330 H, Calcium 9.3 09/20/20 04:25: WBC 15.4 H, RBC 3.67 L, Hgb 9.5 L, Hct 30.4 L, MCV 82.8, MCH 25.9 L, MCHC 31.3 L, RDW 15.4 H, Plt Count 545 H, MPV 9.3, Neut # (Auto) 12.5 H, Lymph # (Auto) 1.7, [place] # (Auto) 0.9, Eos # (Auto) 0.1, Baso # (Auto) 0.0, Absolute Nucleated RBC 0.00, Nucleated RBC % 0.0 09/20/20 00:33: Lactic Acid 1.2 09/19/20 21:21: Lactic Acid 2.5 H 09/19/20 21:21: Sodium 127 L, Potassium 4.7, Chloride 92 L, Carbon Dioxide 22, Anion Gap 13.0, BUN 48 H, Creatinine 1.9 H, Estimated GFR (MDRD) 36 L, Glucose 300 H, Calcium 9.4 09/19/20 20:05: Lactic Acid 1.4 09/19/20 20:00: Nasal Adenovirus (PCR) NOT DETECTED, Nasal B. parapertussis DNA (PCR) NOT DETECTED, Nasal Coronavir 229E PCR NOT DETECTED, Nasal Coronavir HKU1 PCR NOT DETECTED, Nasal Coronavir NL63 PCR NOT DETECTED, Nasal Coronavir OC43 PCR NOT DETECTED, Nasal Enterovir/Rhinovir PCR NOT DETECTED, Nasal Influenza B PCR NOT DETECTED, Nasal Influenza A PCR NOT DETECTED, Nasal Parainfluen 1 PCR NOT DETECTED, Nasal Parainfluen 2 PCR NOT DETECTED, Nasal Parainfluen 3 PCR NOT DETECTED, Nasal Parainfluen 4 PCR NOT DETECTED, Nasal RSV (PCR) NOT DETECTED, Nasal B.pertussis DNA PCR NOT DETECTED, Nasal C.pneumoniae (PCR) NOT DETECTED, [place] Human Metapneumo PCR NOT DETECTED, Nasal M.pneumoniae (PCR) NOT DETECTED, Nasal SARS-CoV-2 (PCR) NOT DETECTED 09/19/20 19:30: Urine Color YELLOW, Urine Clarity CLEAR, Urine pH 5.5, Ur Specific [place] 1.010, Urine Protein NEGATIVE, Urine Glucose (UA) >=1000 H, Urine Ketones NEGATIVE, Urine Occult Blood SMALL H, Urine Nitrite NEGATIVE, Urine Bilirubin NEGATIVE, Urine Urobilinogen 0.2 (NORMAL), Ur Leukocyte Esterase NEGATIVE, Urine RBC 0-5, Urine WBC 0-3, Ur Squamous Epith Cells RARE Squamous, Urine Bacteria None Seen, Urine Mucus Few Strands, Urine Culture Comments NOT INDICATED 09/19/20 19:04: Sodium 125 L, Potassium 4.3, Chloride 86 L, Carbon Dioxide 24, Anion Gap 15.0 H, BUN 51 H, Creatinine 2.0 H, Estimated GFR (MDRD) 34 L, Glucose 353 H, Calcium 9.6, Total Bilirubin 0.5, AST 17, ALT 17, Alkaline Phosphatase 79, Total Protein 7.8, Albumin 2.5 L, Globulin 5.3 H, Albumin/Globulin Ratio 0.5 L, Lipase 18 L 09/19/20 19:04: WBC 16.3 H, RBC 3.65 L, Hgb 9.5 L, Hct 29.9 L, MCV 81.9, MCH 26.0 L, MCHC 31.8 L, RDW 15.7 H, Plt Count 555 H, MPV 9.9, Neut # (Auto) 12.9 H, Lymph # (Auto) 2.2, [place] # (Auto) 1.0, Eos # (Auto) 0.1, Baso # (Auto) 0.0, Absolute Nucleated RBC 0.00, Nucleated RBC % 0.0 - Diagnosis Diagnosis: 1. Dysphagia. 2. Aspiration pneumonia. 3. Multiple medical core morbidities - Plan Plan: Given patient's presentation agree with proceeding with esophagogastroduodenoscopy for diagnostics. Would also recommend at some point upper GI study with small bowel follow-through also ordered. We will proceed with esophagogastroduodenoscopy. This to include random biopsies of the duodenum, stomach, GE junction as well as other necessary biopsies to rule out amongst other celiac sprue, gastritis/gastropathy, reflux as well as Vega's, together with H. pylori. Significant concern as it relates to esophageal malignancy given imaging findings per below. Would maintain the patient n.p.o. pending results. CT soft tissue neck reveals: 1. The upper thoracic esophagus appears mildly thickened, suggesting mild esophagitis. 2. Maxillary sinus disease 3. Airspace opacities in the right apex. 4. Ankylosing spondylitis. CT chest: 1. Right lung opacities are present, increased in right middle lobe and lower lobe, consistent with pneumonia or aspiration. There are chronic airspace opacities in the right upper lobe, which could obscure a mass. 2. Small lung nodules bilaterally are stable. 3. Moderate to severe centrilobular emphysema. 4. Mild mediastinal lymphadenopathy. 5. Mild concentric esophageal thickening may be secondary to gastroesophageal reflux. Risk and benefits discussed, the former include amongst others bleeding, infection, perforation, need for further procedures/surgery, missed lesions, as well as anesthetic complications of heart attack, stroke, pulmonary embolism and . Before any definitive interventions will proceed with this first. Please note that voice recognition software was used to transcribe this note and inadvertent errors might persist in spite of review and editing. I am obliged to you for your attention. I am thankful to you for allowing me to participate with you in this care of this patient.
[2020-09-20] MEDS ORDERED: LIDOCAINE-MPF 2% 5 ML VIAL ONE (13:48)
[2020-09-20] MEDS ORDERED: PROPOFOL 500 MG/50 ML 500 MG/50 ML VIAL ONE (13:48)
[2020-09-20] MEDS ORDERED: LIDO GARGLE 30 ML BOTTLE ONE (14:09)
[2020-09-20] MEDS ORDERED: BENZOCAINE/TETRACAINE/BUTAMBEN 20 GM TOP ONE (14:10)
[2020-09-20] MEDS ORDERED: LIDO GARGLE 30 ML BOTTLE TOP ONE (14:10)
--- NOTE | 2020-09-20 14:44 | PROVIDER PROGRESS NOTE ---
Progress Note 64-year-old male with progressive 1 year history of dysphagia and cough. Admitted with aspiration pneumonia. Consulted by surgery for upper endoscopy. Findings are as follows: 1. Mucopurulence within the oropharynx aggressively aspirated and suctioned. 2. Similar material noted at the level of the larynx without any obstructing lesion noted. 3. Thoracic esophagus evaluated without any mass lesion appreciated. 4. GE junction widely patent. Diffuse distal esophageal/gastroesophageal junctional inflammatory changes biopsied at the conclusion of this case cold forceps. 5. Duodenum intubated with a patent pylorus. No duodenitis. Randomly biopsied cold forceps. 6. Antrum with mild gastritis biopsied cold forceps. 7. Hiatal hernia appreciated. No diffuse gastritis appreciated. 8. GE junctional inflammatory changes biopsied cold forceps. 9. Mid esophageal biopsies obtained as well cold forceps. 10. Again throughout the entirety of this exam no obstructing mass lesions or other stricture/stenoses appreciated. Would plan and recommend the followin. Video swallow study. 2. Speech pathology consultation. 3. Await pathology 4. Continue with proton pump inhibitor/acid suppression therapy 5. Care per primary team. 6. No further general surgical intervention merited at this time
--- NOTE | 2020-09-20 14:51 | ANESTHESIA POST OP EVALUATION ---
Anesthesia Post Eval - Post Anesthesia Eval Vitals: Last Vital Signs Temp 37.4 C 09/20/20 07:51 Pulse 76 09/20/20 11:36 Resp 20 09/20/20 11:36 BP 105/64 09/20/20 11:36 Pulse Ox 92 09/20/20 11:36 CV Function Including HR & BP: positive: Stable Pain Control: positive: Satisfactory Nausea & Vomiting: positive: Negative Mental Status: positive: Baseline Respiratory Status: Airway Patent Hydration Status: Satisfactory Anesthesia Complications: positive: None
--- NOTE | 2020-09-20 15:23 | PHARMACY PROGRESS NOTE ---
- Best Possible Medication History Admit Date and Time: 09/19/202037 Processed by: Pharmacy Medication History completed: Yes Patient Interview: Pt unable to participate Secondary Source(s): Pharmacy records, Insurance records Patient unavailable, asleep or out of room at my attempts to visit. Completed medication reconciliation based on insurance reported fills and pharmacy records. Last fill for Chantix was November of 2019. Patient is no longer taking this. As the person ultimately responsible for medication therapy, providers are able to order a medication from an existing home medication list in [facility] via the "Reconcile Routine" prior to Confirmation of that medication by direct support professional caregiver. Such practice is discouraged except when the physician, in their clinical judgment, deems that a medical need exists for a medication without regard to previous use.
[2020-09-20] MEDS: HYDROcod/ACETAM 5/325 MG TABLET PO PRN (18:00)
[2020-09-20] MEDS: BUDESONIDE 0.5 MG/2 ML NEB INH SCH (19:30)
[2020-09-20] MEDS: IPRATROPIUM/ALBUTEROL 3 ML NEB INH SCH (19:30)
[2020-09-20] MEDS: ACETAMINOPHEN 325 MG TABLET PO PRN (20:36)
[2020-09-20] MEDS: ATORVASTATIN 10 MG TABLET PO SCH (20:36)
[2020-09-20] MEDS: PREGABALIN 100 MG CAPSULE PO SCH (21:55)
[2020-09-21] MEDS: SODIUM CHLORIDE FLUSH 0.9% 10 ML SYRINGE IVP SCH ×3 (00:56→16:53)
[2020-09-21] MEDS: HYDROcod/ACETAM 5/325 MG TABLET PO PRN ×2 (01:03→15:54)
[2020-09-21] MEDS: PIPERACILLIN/TAZOBACTAM 4.5 GM in SODIUM CHLORIDE 0.9% MINIBAG 100 ML IV SCH ×3 (02:16→18:01)
[2020-09-21 04:33] LABS: BASOPHILS # (AUTO) 0.1 10^3/uL (0.0-0.1); BASOPHILS % (AUTO) 0.4 %; EOSINOPHILS # (AUTO) 0.1 10^3/uL (0.0-0.7); EOSINOPHILS % (AUTO) 0.7 %; HCT - HEMATOCRIT 29.9 % (42.0-52.0); HGB - HEMOGLOBIN 9.1 g/dL (14.0-18.0); LYMPHOCYTES # (AUTO) 2.3 10^3/uL (1.5-3.5); LYMPHOCYTES % (AUTO) 17.2 %; MEAN CORPUSCULAR HEMOGLOBIN 25.9 pg (27.0-31.0); MEAN CORPUSCULAR HGB CONC 30.4 g/dL (32.0-36.0); MEAN CORPUSCULAR VOLUME 85.2 fL (80.0-94.0); MEAN PLATELET VOLUME 9.4 fL (7.4-11.4); MONOCYTES # (AUTO) 0.7 10^3/uL (0.0-1.0); MONOCYTES % (AUTO) 5.1 %; NEUTROPHILS # (AUTO) 10.2 10^3/uL (1.5-6.6); NEUTROPHILS % (AUTO) 75.9 %; PLT - PLATELET COUNT 554 10^3/uL (130-450); RED BLOOD COUNT 3.51 10^6/uL (4.70-6.10); RED CELL DISTRIBUTION WIDTH 15.9 % (12.0-15.0); WHITE BLOOD COUNT 13.5 x10^3/uL (4.8-10.8)
[2020-09-21 05:04] LABS: CREATININE 1.5 mg/dL (0.6-1.2); CRP - C-REACTIVE PROTEIN 26.9 mg/dL (0-1.0); POTASSIUM 4.4 mmol/L (3.5-5.0)
[2020-09-21] MEDS: METOCLOPRAMIDE 10 MG TABLET PO SCH ×3 (06:48→15:54)
[2020-09-21] MEDS: PREGABALIN 100 MG CAPSULE PO SCH ×3 (06:48→21:00)
[2020-09-21] MEDS: PANTOPRAZOLE 40 MG VIAL IVP SCH (06:49)
[2020-09-21] MEDS: BUDESONIDE 0.5 MG/2 ML NEB INH SCH ×2 (07:23→18:25)
[2020-09-21] MEDS: IPRATROPIUM/ALBUTEROL 3 ML NEB INH SCH ×4 (07:23→18:25)
[2020-09-21] MEDS: INSULIN ASPART 300 UNIT/3 ML PEN SUBQ SCH ×5 (08:03→21:01)
[2020-09-21] MEDS: INSULIN GLARGINE 300 UNIT/3 ML PEN SUBQ SCH ×3 (08:04→21:02)
[2020-09-21] MEDS: LORazepam 0.5 MG TABLET PO SCH (08:08)
[2020-09-21] MEDS: FERROUS GLUCONATE 324 MG TABLET PO SCH (08:08)
[2020-09-21] MEDS: ENOXAPARIN 40 MG/0.4 ML SYRINGE SUBQ SCH (08:08)
[2020-09-21] MEDS: TAMSULOSIN 0.4 MG CAPSULE PO SCH (08:08)
[2020-09-21] MEDS: METOPROLOL TARTRATE 25 MG TABLET PO SCH ×2 (08:09→20:57)
[2020-09-21] MEDS ORDERED: ASPIRIN EC 81 MG TABLET PO SCH (09:00)
[2020-09-21] MEDS: SODIUM CHLORIDE FLUSH 0.9% 10 ML SYRINGE IVP PRN (10:13)
--- NOTE | 2020-09-21 11:40 | PROVIDER PROGRESS NOTE ---
Assessment/Plan - Problem List (1) Sepsis Qualifiers: Sepsis type: sepsis due to unspecified organism Sepsis acute organ dysfunction status: with acute organ dysfunction Severe sepsis acute organ dysfunction type: acute renal failure Acute renal failure type: unspecified Severe sepsis shock status: without septic shock Qualified Code(s): A41.9 - Sepsis, unspecified organism; R65.20 - Severe sepsis without septic shock; N17.9 - Acute kidney failure, unspecified Assessment/Plan: 09/21 Acute sepsis is resolved, patient has no tachycardia no tachypnea, patient has 94% sats on room air. WBC is reduced to 13.5 but CRP is slightly increased. Blood culture is negative for bacteremia. continue antibiotics. 09/20 Improved, patient report he feel better, She has 92% sats on room air without tachypnea. patient's tachycardia and elevated lactic acid are resolved. Patient's WBC is slightly reduced. Patient has a history of elevated WBC. Continue Zosyn antibiotics, continue intravenous IV fluids, continue laboratory and vital signs monitor (2) Aspiration pneumonia 09/21 improved. patient has 94% sats on room air. WBC is reduced to 13.5 but CRP is slightly increased. continue antibiotics 09/20, Improved, patient has 92% sats on room air. Patient still present cough as his chronic status, Sputum culture is ordered. Continue Zosyn. Continue dysphagia pured diet, order ST. Aspiration precaution to nurse care (3) Dysphagia, oropharyngeal phase Conclusion/Plan: 09/21 EGD was no obstructing mass lesions or other stricture/stenoses appreciated. ST recommend nectar liquid for pt, continue dysphagia puree diet. Speaking with GI surgeon, general surgeon plan to have EGD on this afternoon, NPO, IVF (4) Type 2 diabetes mellitus-uncontrolled 09/21 A1C 12.3 uncontrolled diabetes. continue lantus, slide scale, ACHS to check glucose, hypoglycemia protocol Controlled diabetic, sugar is still over 300 in the morning. Add the morning Lantus, and novolog, continue slide scale, ACHS check glucose, and continue Hypoglycemia protocol (5) Ischemic cardiomyopathy Conclusion/Plan: discussed with pt for the risk factors which can further worsen his Cardiomyopathy, pt will be benefit from BP control, DM control and quit of cigarette smoking. pt was Maximal medical management advised in the previous because of distal RCA stenosis/blockage, no approachable for stenting (6) History of latent tuberculosis Conclusion/Plan: Patient had biopsy to show scar tissue in the past. pt has hx of Constant sweats, weight loss. Already treated with 3 months of INH and rifampin in the past. CT of the chest was ordered in the emergency room which is not clear if neoplasm, Mild mediastinal lymphadenopathy could be reactive from infection. CT also found small bilateral nodules, which recommend followup with in 3 months image study (7) Weight loss, non-intentional Conclusion/Plan: likely Due to dysphagia. pt has no fever and other of type B symptoms. continue Nutrition consult, CT of the chest was ordered in the emergency room which is not clear if neoplasm, Mild mediastinal lymphadenopathy could be reactive from infection. He has already been evaluated by oncology for myeloproliferative disease which was negative, and that will not be repeated. (8) SANDRINE (acute kidney injury) Conclusion/Plan: 09/21 improved creatinine 1.5 today as his baseline. hold IVF for prevention of fluid overload now. improved, creatinine 1.7 now from 2.0 at admission. his hyponatremia is improved as well, likely due to dehydration and poor p.o. intake since every time he tries to drink thin liquids he aspirates. Continue lactated Ringer's at 100 cc an hour continue lab monitor (9) Chronic anemia Conclusion/Plan: HGB is 9.5 stable Iron studies show Significant iron deficiency, B12 deficiency. iron and B12 ordered for patient order Check stool for fecal occult blood (10) BPH with LUTS by description. check PSA, unremarkable check retroperitoneal US Show chronic prostate obstruction, But the patient can urinate 1250 cc on last night, no Alberto now. add Flomax (11)GERD Patient has significantly hx of GERD, and esophagitis, with hx of severe Dysphagia, We consult with GI surgeon, plan to have EGD on this afternoon, order IV Protonix, GI cocktail as needed - Current Meds Current Meds: Current Medications Generic Name Dose Route Start Last Admin Trade Name Freq PRN Reason Stop Dose Admin Acetaminophen 650 mg 09/19/20 20:38 09/20/20 20:36 Acetaminophen 325 Mg Tablet PO 650 mg Q4HR PRN Administration Pain 1 to 4 Hydrocodone Bitart/Acetaminophen 1 tab 09/19/20 22:57 09/21/20 01:03 Hydrocod/Acetam 5/325 Mg Tablet PO 1 tab Q6H PRN Administration PAIN Albuterol/Ipratropium 3 ml 03/17/21 19:00 09/21/20 10:54 Ipratropium/Albuterol 3 Ml Neb INH 3 ml RTQID BRENDA Administration Aspirin 81 mg 09/21/20 09:00 09/21/20 08:08 Aspirin Ec 81 Mg Tablet PO 81 mg DAILY BRENDA Administration Atorvastatin Calcium 20 mg 09/20/20 21:00 09/20/20 20:36 Atorvastatin 10 Mg Tablet PO 20 mg QPM BRENDA Administration Budesonide 0.5 mg 09/20/20 19:00 09/21/20 07:23 Budesonide 0.5 Mg/2 Ml Neb INH 0.5 mg RTBID BRENDA Administration Enoxaparin Sodium 40 mg 09/20/20 09:00 09/21/20 08:08 Enoxaparin 40 Mg/0.4 Ml Syringe SUBQ 40 mg DAILY BRENDA Administration Ferrous Gluconate 324 mg 09/20/20 11:00 09/21/20 08:08 Ferrous Gluconate 324 Mg Tablet PO 324 mg DAILYWM BRENDA Administration Piperacillin Sod/Tazobactam 100 mls @ 25 mls/hr 09/20/20 02:00 09/21/20 10:13 Sod 4.5 gm/ Sodium Chloride IV 25 mls/hr Q8H BRENDA Administration Insulin Aspart 3 - 11 unit 09/20/20 08:00 09/21/20 08:03 Insulin Aspart 300 Unit/3 Ml Pen SUBQ 7 unit 0800,1200,1700,2100 BRENDA Administration Protocol Insulin Glargine 10 unit 09/21/20 08:00 09/21/20 08:04 Insulin Glargine 300 Unit/3 Ml Pen SUBQ 10 unit QDBREAKFAST BRENDA Administration Lorazepam 0.5 mg 09/20/20 09:00 09/21/20 08:08 Lorazepam 0.5 Mg Tablet PO 0.5 mg DAILY BRENDA Administration Metoclopramide HCl 5 mg 09/20/20 07:00 09/21/20 06:48 Metoclopramide 10 Mg Tablet PO 5 mg AC BRENDA Administration Metoprolol Tartrate 25 mg 09/19/20 23:00 09/21/20 08:09 Metoprolol Tartrate 25 Mg Tablet PO Not Given BID BRENDA Pantoprazole Sodium 40 mg 09/20/20 08:00 09/21/20 06:49 Pantoprazole 40 Mg Vial IVP 40 mg QDAC BRENDA Administration Pregabalin 100 mg 09/20/20 22:00 09/21/20 06:48 Pregabalin 100 Mg Capsule PO 100 mg TID BRENDA Administration Sodium Chloride 10 ml 09/19/20 20:38 09/21/20 10:13 Sodium Chloride Flush 0.9% 10 Ml Syringe IVP 10 ml PRN PRN Administration NEEDED PER PROVIDER ORDERS Sodium Chloride 10 ml 09/20/20 01:00 09/21/20 00:56 Sodium Chloride Flush 0.9% 10 Ml Syringe IVP 10 ml 0100,0900,1700 BRENDA Administration Tamsulosin HCl 0.4 mg 09/20/20 11:00 09/21/20 08:08 Tamsulosin 0.4 Mg Capsule PO 0.4 mg DAILY BRENDA Administration - Lab Result Fish Bone Diagrams: 09/21/20 04:18 09/21/20 04:18 - Additional Planning My Orders: My Active Orders 09/20/20 11:00 Ferrous Gluconate [Fergon] 324 mg PO DAILYWM Tamsulosin [Flomax] 0.4 mg PO DAILY 09/20/20 12:23 Gi Cocktail 30 ml PO Q4H PRN 09/20/20 13:45 CUL, RESPIRATORY [RM] Urgent 09/20/20 19:00 Budesonide [Pulmicort] 0.5 mg INH RTBID Ipratropium/Albuterol [Duoneb] 3 ml INH RTQID 09/20/20 22:00 Pregabalin [Lyrica] 100 mg PO TID 09/21/20 08:00 Insulin Glargine [Lantus Solostar] 10 unit SUBQ QDBREAKFAST 09/21/20 09:00 Aspirin EC [Ecotrin] 81 mg PO DAILY 09/21/20 10:12 Nocturnal O2 Saturation Study [RC] .ONCE 09/21/20 Lunch Dysphagia Puree Diet [DIET] 09/21/20 21:00 Insulin Glargine [Lantus Solostar] 10 unit SUBQ QPM 09/22/20 05:00 CRP - C-REACTIVE PROTEIN [CHEM] DAILYLAB 09/23/20 05:00 CRP - C-REACTIVE PROTEIN [CHEM] DAILYLAB 09/24/20 05:00 CRP - C-REACTIVE PROTEIN [CHEM] DAILYLAB 09/25/20 05:00 CRP - C-REACTIVE PROTEIN [CHEM] DAILYLAB Subjective - Subjective Patient Reports: Feeling Better Objective Vital Signs: Vital Signs - 24 hr 09/20/20 09/20/20 09/20/20 15:02 15:32 19:30 Temperature 37.1 C 37.1 C Heart Rate 87 Heart Rate [ 77 71 Brachial] Respiratory 18 20 16 Rate Blood Pressure Blood Pressure [Left Brachial artery] Blood Pressure 93/47 L 103/66 [Right Brachial artery] O2 Saturation 97 93 09/20/20 09/20/20 09/20/20 20:26 20:37 23:58 Temperature 37.6 C 36.9 C Heart Rate Heart Rate [ 91 66 Brachial] Respiratory 20 16 Rate Blood Pressure 100/54 L Blood Pressure [Left Brachial artery] Blood Pressure 106/59 L 88/51 L [Right Brachial artery] O2 Saturation 94 98 09/21/20 09/21/20 09/21/20 01:00 07:15 07:52 Temperature 36.7 C Heart Rate 86 Heart Rate [ 85 Brachial] Respiratory 20 20 Rate Blood Pressure Blood Pressure 102/56 L 102/69 [Left Brachial artery] Blood Pressure [Right Brachial artery] O2 Saturation 94 09/21/20 09/21/20 09/21/20 08:09 09:05 09:09 Temperature Heart Rate Heart Rate [ Brachial] Respiratory 22 22 Rate Blood Pressure 103/58 L Blood Pressure [Left Brachial artery] Blood Pressure [Right Brachial artery] O2 Saturation 96 93 09/21/20 09:40 Temperature Heart Rate Heart Rate [ Brachial] Respiratory 20 Rate Blood Pressure Blood Pressure [Left Brachial artery] Blood Pressure [Right Brachial artery] O2 Saturation 94 Oxygen O2 Source Room air I&O (Last 24 Hrs): Intake and Output Totals x24h 09/19/20 09/20/20 09/21/20 23:59 23:59 23:59 Intake Total 2099 2450 220 Output Total 1999 300 Balance 2100 450 -80 General: Alert, Cooperative, No acute distress HEENT: Atraumatic Neck: Supple Lymphatic: no adenopathy Neuro: Alert, Non Focal Cardiovascular: Regular rate, Normal S1 Respiratory: Chest non-tender, No respiratory distress Abdomen: Normal bowel sounds, Soft, No tenderness Extremities: Normal pulses - Results Results: Laboratory Results WBC 13.5 x10^3/uL (4.8-10.8) H 09/21/20 04:18 RBC 3.51 10^6/uL (4.70-6.10) L 09/21/20 04:18 Hgb 9.1 g/dL (14.0-18.0) L 09/21/20 04:18 Hct 29.9 % (42.0-52.0) L 09/21/20 04:18 MCV 85.2 fL (80.0-94.0) 09/21/20 04:18 MCH 25.9 pg (27.0-31.0) L 09/21/20 04:18 MCHC 30.4 g/dL (32.0-36.0) L 09/21/20 04:18 RDW 15.9 % (12.0-15.0) H 09/21/20 04:18 Plt Count 554 10^3/uL (130-450) H 09/21/20 04:18 MPV 9.4 fL (7.4-11.4) 09/21/20 04:18 Reticulocyte % (Auto) 0.70 % (0.5-2.3) 09/20/20 09:15 Neut # (Auto) 10.2 10^3/uL (1.5-6.6) H 09/21/20 04:18 Lymph # (Auto) 2.3 10^3/uL (1.5-3.5) 09/21/20 04:18 [place] # (Auto) 0.7 10^3/uL (0.0-1.0) 09/21/20 04:18 Eos # (Auto) 0.1 10^3/uL (0.0-0.7) 09/21/20 04:18 Baso # (Auto) 0.1 10^3/uL (0.0-0.1) 09/21/20 04:18 Absolute Nucleated RBC 0.00 x10^3/uL 09/21/20 04:18 Nucleated RBC % 0.0 /100WBC 09/21/20 04:18 Absolute Retic 0.025 10^6/uL (0.020-0.110) 09/20/20 09:15 Sodium 140 mmol/L (135-145) 09/21/20 04:18 Potassium 4.4 mmol/L (3.5-5.0) 09/21/20 04:18 Chloride 102 mmol/L (101-111) 09/21/20 04:18 Carbon Dioxide 25 mmol/L (21-32) 09/21/20 04:18 Anion Gap 13.0 (6-13) 09/21/20 04:18 BUN 27 mg/dL (6-20) H 09/21/20 04:18 Creatinine 1.5 mg/dL (0.6-1.2) H 09/21/20 04:18 Estimated GFR (MDRD) 47 (>89) L 09/21/20 04:18 Glucose 177 mg/dL (70-100) H 09/21/20 04:18 POC Whole Bld Glucose 243 mg/dL (70 - 100) H 09/21/20 07:29 Estimat Average Glucose 306 mg/dL (70-100) H 09/20/20 04:25 Hemoglobin A1c % 12.3 % (4.27-6.07) H 09/20/20 04:25 Lactic Acid 1.2 mmol/L (0.5-2.2) 09/20/20 00:33 Calcium 10.0 mg/dL (8.5-10.3) 09/21/20 04:18 Iron 13 ug/dL (45-182) L 09/20/20 09:15 TIBC 195 ug/dL (250-450) L 09/20/20 09:15 % Saturation 7 % (20-50) L 09/20/20 09:15 Transferrin 139 mg/dL (180-329) L 09/20/20 09:15 Ferritin 134.3 ng/mL (23.9-336.2) 09/20/20 04:25 Total Bilirubin 0.5 mg/dL (0.2-1.0) 09/19/20 19:04 AST 17 IU/L (10-42) 09/19/20 19:04 ALT 17 IU/L (10-60) 09/19/20 19:04 Alkaline Phosphatase 79 IU/L (42-121) 09/19/20 19:04 Lactate Dehydrogenase 88 IU/L (91-225) L 09/20/20 04:25 C-Reactive Protein 26.9 mg/dL (0-1.0) H 09/21/20 04:18 Total Protein 7.8 g/dL (6.7-8.2) 09/19/20 19:04 Albumin 2.5 g/dL (3.2-5.5) L 09/19/20 19:04 Globulin 5.3 g/dL (2.1-4.2) H 09/19/20 19:04 Albumin/Globulin Ratio 0.5 (1.0-2.2) L 09/19/20 19:04 Lipase 18 U/L (22-51) L 09/19/20 19:04 Prostate Specific Ag 0.400 ng/mL (0.000-2.000) 09/20/20 09:15 Free PSA 0.100 ng/mL (0.16-2.81) L 09/20/20 09:15 % Free PSA Calc 25 % (25-100) 09/20/20 09:15 Vitamin B12 144 pg/mL (180-914) L 09/20/20 04:25 Urine Color YELLOW 09/19/20 19:30 Urine Clarity CLEAR (CLEAR) 09/19/20 19:30 Urine pH 5.5 PH (5.0-7.5) 09/19/20 19:30 Ur Specific [place] 1.010 (1.002-1.030) 09/19/20 19:30 Urine Protein NEGATIVE mg/dL (NEGATIVE) 09/19/20 19:30 Urine Glucose (UA) >=1000 mg/dL (NEGATIVE) H 09/19/20 19:30 Urine Ketones NEGATIVE mg/dL (NEGATIVE) 09/19/20 19:30 Urine Occult Blood SMALL (NEGATIVE) H 09/19/20 19:30 Urine Nitrite NEGATIVE (NEGATIVE) 09/19/20 19:30 Urine Bilirubin NEGATIVE (NEGATIVE) 09/19/20 19:30 Urine Urobilinogen 0.2 (NORMAL) E.U./dL (NORMAL) 09/19/20 19:30 Ur Leukocyte Esterase NEGATIVE (NEGATIVE) 09/19/20 19:30 Urine RBC 0-5 /HPF (0-5) 09/19/20 19:30 Urine WBC 0-3 /HPF (0-3) 09/19/20 19:30 Ur Squamous Epith Cells RARE Squamous (<= Few) 09/19/20 19:30 Urine Bacteria None Seen /HPF (None Seen) 09/19/20 19:30 Urine Mucus Few Strands 09/19/20 19:30 Urine Culture Comments NOT INDICATED 09/19/20 19:30 Nasal Adenovirus (PCR) NOT DETECTED 09/19/20 20:00 Nasal B. parapertussis DNA (PCR) NOT DETECTED 09/19/20 20:00 Nasal Coronavir 229E PCR NOT DETECTED 09/19/20 20:00 Nasal Coronavir HKU1 PCR NOT DETECTED 09/19/20 20:00 Nasal Coronavir NL63 PCR NOT DETECTED 09/19/20 20:00 Nasal Coronavir OC43 PCR NOT DETECTED 09/19/20 20:00 Nasal Enterovir/Rhinovir PCR NOT DETECTED 09/19/20 20:00 Nasal Influenza B PCR NOT DETECTED 09/19/20 20:00 Nasal Influenza A PCR NOT DETECTED 09/19/20 20:00 Nasal Parainfluen 1 PCR NOT DETECTED 09/19/20 20:00 Nasal Parainfluen 2 PCR NOT DETECTED 09/19/20 20:00 Nasal Parainfluen 3 PCR NOT DETECTED 09/19/20 20:00 Nasal Parainfluen 4 PCR NOT DETECTED 09/19/20 20:00 Nasal RSV (PCR) NOT DETECTED 09/19/20 20:00 Nasal B.pertussis DNA PCR NOT DETECTED 09/19/20 20:00 Nasal C.pneumoniae (PCR) NOT DETECTED 09/19/20 20:00 [place] Human Metapneumo PCR NOT DETECTED 09/19/20 20:00 Nasal M.pneumoniae (PCR) NOT DETECTED 09/19/20 20:00 Nasal SARS-CoV-2 (PCR) NOT DETECTED 09/19/20 20:00 - Procedures Procedures: Procedures CLOSED ENDOSCOPIC BIOPSY OF LARGE INTESTINE (12/28/14) ENDO RECTUM POLYPECTOMY (12/28/14) ESOPHAGOGASTRODUODENOSCOPY [EGD] W/CLOSED BIOPSY (12/28/14) Sepsis Event Note (H) - Evaluation Current Stage of Sepsis: Sepsis Possible source of Sepsis: positive: Pulmonary - Sepsis Criteria Sepsis Criteria: Recorded Heart Rate greater than 90 bpm, WBC count greater than 12,000 or less than 4000, Metabolic: lactate > 2 mmol/L ABX Reporting Has patient been on IV antibiotics over the past 48 hours?: Yes Current Medications - Current Medications Current Medications: Active Medications Acetaminophen (Acetaminophen 325 Mg Tablet) 650 mg PO Q4HR PRN PRN Reason: Pain 1 to 4 Last Admin: 09/20/20 20:36 Dose: 650 mg Documented by: Hydrocodone Bitart/Acetaminophen (Hydrocod/Acetam 5/325 Mg Tablet) 1 tab PO Q6H PRN PRN Reason: PAIN Last Admin: 09/21/20 01:03 Dose: 1 tab Documented by: Albuterol (Albuterol Neb 2.5 Mg/3 Ml) 2.5 mg INH QID PRN PRN Reason: Wheezing Albuterol/Ipratropium (Ipratropium/Albuterol 3 Ml Neb) 3 ml INH RTQID [facility] Last Admin: 09/21/20 10:54 Dose: 3 ml Documented by: Aspirin (Aspirin Ec 81 Mg Tablet) 81 mg PO DAILY [facility] Last Admin: 09/21/20 08:08 Dose: 81 mg Documented by: Atorvastatin Calcium (Atorvastatin 10 Mg Tablet) 20 mg PO QPM [facility] Last Admin: 09/20/20 20:36 Dose: 20 mg Documented by: Budesonide (Budesonide 0.5 Mg/2 Ml Neb) 0.5 mg INH RTBID [facility] Last Admin: 09/21/20 07:23 Dose: 0.5 mg Documented by: Enoxaparin Sodium (Enoxaparin 40 Mg/0.4 Ml Syringe) 40 mg SUBQ DAILY [facility] Last Admin: 09/21/20 08:08 Dose: 40 mg Documented by: Ferrous Gluconate (Ferrous Gluconate 324 Mg Tablet) 324 mg PO DAILYWM [facility] Last Admin: 09/21/20 08:08 Dose: 324 mg Documented by: Piperacillin Sod/Tazobactam (Sod 4.5 gm/ Sodium Chloride) 100 mls @ 25 mls/hr IV Q8H [facility] Last Admin: 09/21/20 10:13 Dose: 25 mls/hr Documented by: Insulin Aspart (Insulin Aspart 300 Unit/3 Ml Pen) 3 - 11 unit SUBQ 0800,1200,1700,2100 [facility]; Protocol Last Admin: 09/21/20 08:03 Dose: 7 unit Documented by: Insulin Glargine (Insulin Glargine 300 Unit/3 Ml Pen) 10 unit SUBQ QDBREAKFAST [facility] Last Admin: 09/21/20 08:04 Dose: 10 unit Documented by: Insulin Glargine (Insulin Glargine 300 Unit/3 Ml Pen) 10 unit SUBQ QPM [facility] Lorazepam (Lorazepam 0.5 Mg Tablet) 0.5 mg PO DAILY [facility] Last Admin: 09/21/20 08:08 Dose: 0.5 mg Documented by: Metoclopramide HCl (Metoclopramide 10 Mg Tablet) 5 mg PO AC [facility] Last Admin: 09/21/20 06:48 Dose: 5 mg Documented by: Metoprolol Tartrate (Metoprolol Tartrate 25 Mg Tablet) 25 mg PO BID [facility] Last Admin: 09/21/20 08:09 Dose: Not Given Documented by: Multi-Ingredient Mouthwash/Gargle (Gi Cocktail 120 Ml Bottle) 30 ml PO Q4H PRN PRN Reason: Abdominal Pain Ondansetron HCl (Ondansetron Odt 4 Mg Tablet) 4 mg TL Q6HR PRN PRN Reason: Nausea / Vomiting Ondansetron HCl (Ondansetron 4 Mg/2 Ml Vial) 4 mg IVP Q6HR PRN PRN Reason: Nausea / Vomiting Pantoprazole Sodium (Pantoprazole 40 Mg Vial) 40 mg IVP QDAC [facility] Last Admin: 09/21/20 06:49 Dose: 40 mg Documented by: Pregabalin (Pregabalin 100 Mg Capsule) 100 mg PO TID [facility] Last Admin: 09/21/20 06:48 Dose: 100 mg Documented by: Sodium Chloride (Sodium Chloride Flush 0.9% 10 Ml Syringe) 10 ml IVP PRN PRN PRN Reason: NEEDED PER PROVIDER ORDERS Last Admin: 09/21/20 10:13 Dose: 10 ml Documented by: Sodium Chloride (Sodium Chloride Flush 0.9% 10 Ml Syringe) 10 ml IVP 0100,0900,1700 [facility] Last Admin: 09/21/20 00:56 Dose: 10 ml Documented by: Tamsulosin HCl (Tamsulosin 0.4 Mg Capsule) 0.4 mg PO DAILY [facility] Last Admin: 09/21/20 08:08 Dose: 0.4 mg Documented by: Pregabalin [Lyrica] 150 mg PO TID 09/10/13 Insulin Detemir [Levemir Flextouch] 40 units SQ BID 07/12/14 Atorvastatin [Lipitor] 20 mg PO QPM 02/23/20 Acetaminophen [Tylenol Extra Strength] 500 mg PO PRN PRN MDD 3000 MG 02/24/20 Metoprolol Tartrate 50 mg PO BID 02/24/20 Amlodipine Besylate [Norvasc] 10 mg PO DAILY 09/20/20 Aspirin EC [Ecotrin] 81 mg PO DAILY 09/20/20 Celecoxib [Celebrex] 200 mg PO DAILY 09/20/20 Ipratropium/Albuterol [Combivent Respimat] 1 puffs INH Q6H 09/20/20 Isosorbide Mononitrate [Isosorbide Mononitrate ER] 60 mg PO DAILY 09/20/20 Lidocaine Ointment 5% [Xylocaine Ointment 5%] 1 applic TOP TID PRN 09/20/20 Pantoprazole [Protonix] 40 mg PO BID 09/20/20 metFORMIN [Glucophage] 500 mg PO BID 09/20/20
[2020-09-21] MEDS: SODIUM CHLORIDE 0.9% 1,000 ML IV SCH (12:52)
[2020-09-21] MEDS ORDERED: METOPROLOL 5 MG/5 ML VIAL IVP PRN (16:34)
[2020-09-21] MEDS ORDERED: INSULIN GLARGINE 300 UNIT/3 ML PEN SUBQ SCH (21:00)
[2020-09-21] MEDS: ATORVASTATIN 10 MG TABLET PO SCH (21:00)
[2020-09-21 21:33] LABS: FECAL OCCULT BLOOD (FIT) POSITIVE (NEGATIVE)
[2020-09-22] MEDS: SODIUM CHLORIDE 0.9% 1,000 ML IV SCH (00:23)
[2020-09-22] MEDS: SODIUM CHLORIDE FLUSH 0.9% 10 ML SYRINGE IVP SCH ×3 (00:24→17:06)
[2020-09-22] MEDS: PIPERACILLIN/TAZOBACTAM 4.5 GM in SODIUM CHLORIDE 0.9% MINIBAG 100 ML IV SCH ×3 (02:32→18:08)
[2020-09-22 04:55] LABS: BASOPHILS # (AUTO) 0.1 10^3/uL (0.0-0.1); BASOPHILS % (AUTO) 0.4 %; EOSINOPHILS # (AUTO) 0.1 10^3/uL (0.0-0.7); HCT - HEMATOCRIT 29.4 % (42.0-52.0); HGB - HEMOGLOBIN 8.8 g/dL (14.0-18.0); LYMPHOCYTES # (AUTO) 1.8 10^3/uL (1.5-3.5); LYMPHOCYTES % (AUTO) 16.3 %; MEAN CORPUSCULAR HEMOGLOBIN 25.4 pg (27.0-31.0); MEAN CORPUSCULAR HGB CONC 29.9 g/dL (32.0-36.0); MEAN CORPUSCULAR VOLUME 84.7 fL (80.0-94.0); MEAN PLATELET VOLUME 9.1 fL (7.4-11.4); MONOCYTES # (AUTO) 0.6 10^3/uL (0.0-1.0); MONOCYTES % (AUTO) 5.5 %; NEUTROPHILS # (AUTO) 8.5 10^3/uL (1.5-6.6); NEUTROPHILS % (AUTO) 75.8 %; PLT - PLATELET COUNT 576 10^3/uL (130-450); RED BLOOD COUNT 3.47 10^6/uL (4.70-6.10); RED CELL DISTRIBUTION WIDTH 15.6 % (12.0-15.0); WHITE BLOOD COUNT 11.3 x10^3/uL (4.8-10.8)
[2020-09-22 05:12] LABS: CALCIUM 9.6 mg/dL (8.5-10.3); CREATININE 1.4 mg/dL (0.6-1.2); CRP - C-REACTIVE PROTEIN 18.7 mg/dL (0-1.0); POTASSIUM 4.2 mmol/L (3.5-5.0)
[2020-09-22] MEDS: PANTOPRAZOLE 40 MG VIAL IVP SCH ×3 (06:38→21:00)
[2020-09-22] MEDS: PREGABALIN 100 MG CAPSULE PO SCH ×3 (06:38→22:26)
[2020-09-22] MEDS: METOCLOPRAMIDE 10 MG TABLET PO SCH ×3 (06:38→16:39)
[2020-09-22] MEDS: BUDESONIDE 0.5 MG/2 ML NEB INH SCH ×2 (07:20→19:49)
[2020-09-22] MEDS: IPRATROPIUM/ALBUTEROL 3 ML NEB INH SCH ×4 (07:20→19:48)
[2020-09-22] MEDS: METOPROLOL TARTRATE 25 MG TABLET PO SCH ×2 (08:24→21:00)
[2020-09-22] MEDS: FERROUS GLUCONATE 324 MG TABLET PO SCH (08:24)
[2020-09-22] MEDS: TAMSULOSIN 0.4 MG CAPSULE PO SCH (08:25)
[2020-09-22] MEDS: LORazepam 0.5 MG TABLET PO SCH (08:25)
[2020-09-22] MEDS: INSULIN ASPART 300 UNIT/3 ML PEN SUBQ SCH ×7 (08:27→21:06)
[2020-09-22] MEDS: INSULIN GLARGINE 300 UNIT/3 ML PEN SUBQ SCH ×2 (08:28→21:07)
--- NOTE | 2020-09-22 11:31 | PROVIDER PROGRESS NOTE ---
Assessment/Plan - Problem List (1) GI bleed Assessment/Plan: 09/22 Patient' stool blood test is positive, pt report he had dark stool. HGB is slight reduced. pt had EGD done before Yesterday which found patient had mild esophagitis and gastritis. Called GI surgeon Dr. Chaney, Recommend continue H&H monitor patient. If patient's hemoglobin continue to drop, we plan to have colonoscopy for patient on tomorrow. Dr. Chaney also report patient had a biopsy on before yesterday when patient had EGD which could cause patient have mild bleeding as well. (2) Sepsis 09/21 Acute sepsis is resolved, patient has no tachycardia no tachypnea, patient has 94% sats on room air. WBC is reduced to 13.5 but CRP is slightly increased. Blood culture is negative for bacteremia. continue antibiotics. 09/20 Improved, patient report he feel better, She has 92% sats on room air without tachypnea. patient's tachycardia and elevated lactic acid are resolved. Patient's WBC is slightly reduced. Patient has a history of elevated WBC. Continue Zosyn antibiotics, continue intravenous IV fluids, continue laboratory and vital signs monitor (2) Aspiration pneumonia 09/22 WBC is 11.3, improved, and CRP continue to drop as well, improved. continue Zosyn, and Aspiration precaution 09/21 improved. patient has 94% sats on room air. WBC is reduced to 13.5 but CRP is slightly increased. continue antibiotics 09/20, Improved, patient has 92% sats on room air. Patient still present cough as his chronic status, Sputum culture is ordered. Continue Zosyn. Continue dysphagia pured diet, order ST. Aspiration precaution to nurse care (3) Dysphagia, oropharyngeal phase Conclusion/Plan: 09/22 likely pt tolerated pt's current dysphagia puree diet. 09/21 EGD was no obstructing mass lesions or other stricture/stenoses appreciated. ST recommend nectar liquid for pt, continue dysphagia puree diet. Speaking with GI surgeon, general surgeon plan to have EGD on this afternoon, NPO, IVF (4) Type 2 diabetes mellitus-uncontrolled 09/22, Lantus 20 units for the night, Patient's glucose is controlled in the 147. We will continue this currently insulin arrangement now. 09/21 A1C 12.3 uncontrolled diabetes. continue lantus, slide scale, ACHS to check glucose, hypoglycemia protocol Controlled diabetic, sugar is still over 300 in the morning. Add the morning Lantus, and novolog, continue slide scale, ACHS check glucose, and continue Hypoglycemia protocol (5) Ischemic cardiomyopathy Conclusion/Plan: discussed with pt for the risk factors which can further worsen his C ardiomyopathy, pt will be benefit from BP control, DM control and quit of cigarette smoking. pt was Maximal medical management advised in the previous because of distal RCA stenosis/blockage, no approachable for stenting (6) History of latent tuberculosis Conclusion/Plan: Patient had biopsy to show scar tissue in the past. pt has hx of Constant sweats, weight loss. Already treated with 3 months of INH and rifampin in the past. CT of the chest was ordered in the emergency room which is not clear if neoplasm, Mild mediastinal lymphadenopathy could be reactive from infection. CT also found small bilateral nodules, which recommend followup with in 3 months image study (7) Weight loss, non-intentional Conclusion/Plan: likely Due to dysphagia. pt has no fever and other of type B symptoms. continue Nutrition consult, CT of the chest was ordered in the emergency room which is not clear if neoplasm, Mild mediastinal lymphadenopathy could be reactive from infection. He has already been evaluated by oncology for myeloproliferative disease which was negative, and that will not be repeated. (8) SANDRINE (acute kidney injury) Conclusion/Plan: 09/21 improved creatinine 1.5 today as his baseline. hold IVF for prevention of fluid overload now. improved, creatinine 1.7 now from 2.0 at admission. his hyponatremia is improved as well, likely due to dehydration and poor p.o. intake since every time he tries to drink thin liquids he aspirates. Continue lactated Ringer's at 100 cc an hour continue lab monitor (9) Chronic anemia Conclusion/Plan: HGB is 9.5 stable Iron studies show Significant iron deficiency, B12 deficiency. iron and B12 ordered for patient order Check stool for fecal occult blood (10) BPH with LUTS by description. check PSA, unremarkable check retroperitoneal US Show chronic prostate obstruction, But the patient can urinate 1250 cc on last night, no Alberto now. add Flomax (11)GERD Patient has significantly hx of GERD, and esophagitis, with hx of severe D ysphagia, We consult with GI surgeon, plan to have EGD on this afternoon, order IV Protonix, GI cocktail as needed (2) Sepsis Qualifiers: Sepsis type: sepsis due to unspecified organism Sepsis acute organ dysfunction status: with acute organ dysfunction Severe sepsis acute organ dysfunction type: acute renal failure Acute renal failure type: unspecified Severe sepsis shock status: without septic shock Qualified Code(s): A41.9 - Sepsis, unspecified organism; R65.20 - Severe sepsis without septic shock; N17.9 - Acute kidney failure, unspecified - Current Meds Current Meds: Current Medications Generic Name Dose Route Start Last Admin Trade Name Freq PRN Reason Stop Dose Admin Acetaminophen 650 mg 09/19/20 20:38 09/20/20 20:36 Acetaminophen 325 Mg Tablet PO 650 mg Q4HR PRN Administration Pain 1 to 4 Hydrocodone Bitart/Acetaminophen 1 tab 09/19/20 22:57 09/21/20 15:54 Hydrocod/Acetam 5/325 Mg Tablet PO 1 tab Q6H PRN Administration PAIN Albuterol/Ipratropium 3 ml 09/20/20 19:00 09/22/20 11:15 Ipratropium/Albuterol 3 Ml Neb INH 3 ml RTQID BRENDA Administration Atorvastatin Calcium 20 mg 09/20/20 21:00 09/21/20 21:00 Atorvastatin 10 Mg Tablet PO 20 mg QPM BRENDA Administration Budesonide 0.5 mg 09/20/20 19:00 09/22/20 07:20 Budesonide 0.5 Mg/2 Ml Neb INH 0.5 mg RTBID BRENDA Administration Ferrous Gluconate 324 mg 09/20/20 11:00 09/22/20 08:24 Ferrous Gluconate 324 Mg Tablet PO 324 mg DAILYWM BRENDA Administration Piperacillin Sod/Tazobactam 100 mls @ 25 mls/hr 09/20/20 02:00 09/22/20 06:32 Sod 4.5 gm/ Sodium Chloride IV Infused Q8H BRENDA Infusion Sodium Chloride 1,000 mls @ 83.333 mls/hr 09/21/20 12:00 09/22/20 06:58 Normal Saline 0.9% IV 09/22/20 11:59 83.333 mls/hr .Q12H BRENDA Infusion Insulin Aspart 3 - 11 unit 09/20/20 08:00 09/22/20 08:27 Insulin Aspart 300 Unit/3 Ml Pen SUBQ 3 unit 0800,1200,1700,2100 BRENDA Administration Protocol Insulin Aspart 5 unit 09/21/20 17:00 09/22/20 08:28 Insulin Aspart 300 Unit/3 Ml Pen SUBQ 5 unit TIDWM BRENDA Administration Insulin Glargine 10 unit 09/21/20 08:00 09/22/20 08:28 Insulin Glargine 300 Unit/3 Ml Pen SUBQ 10 unit QDBREAKFAST BRENDA Administration Insulin Glargine 20 unit 09/21/20 21:00 09/21/20 21:02 Insulin Glargine 300 Unit/3 Ml Pen SUBQ 20 unit QPM BRENDA Administration Lorazepam 0.5 mg 09/20/20 09:00 09/22/20 08:25 Lorazepam 0.5 Mg Tablet PO 0.5 mg DAILY BRENDA Administration Metoclopramide HCl 5 mg 09/20/20 07:00 09/22/20 06:38 Metoclopramide 10 Mg Tablet PO 5 mg AC BRENDA Administration Metoprolol Tartrate 50 mg 09/21/20 21:00 09/22/20 08:24 Metoprolol Tartrate 25 Mg Tablet PO 50 mg BID BRENDA Administration Pantoprazole Sodium 40 mg 09/22/20 09:00 09/22/20 08:25 Pantoprazole 40 Mg Vial IVP 40 mg BID BRENDA Administration Pregabalin 100 mg 09/20/20 22:00 09/22/20 06:38 Pregabalin 100 Mg Capsule PO 100 mg TID BRENDA Administration Sodium Chloride 10 ml 09/19/20 20:38 09/21/20 10:13 Sodium Chloride Flush 0.9% 10 Ml Syringe IVP 10 ml PRN PRN Administration NEEDED PER PROVIDER ORDERS Sodium Chloride 10 ml 09/20/20 01:00 09/22/20 08:25 Sodium Chloride Flush 0.9% 10 Ml Syringe IVP 10 ml 0100,0900,1700 BRENDA Administration Tamsulosin HCl 0.4 mg 09/20/20 11:00 09/22/20 08:25 Tamsulosin 0.4 Mg Capsule PO 0.4 mg DAILY BRENDA Administration - Lab Result Fish Bone Diagrams: 09/22/20 04:31 09/22/20 04:31 - Additional Planning My Orders: My Active Orders 09/21/20 Lunch Dysphagia Puree Diet [DIET] 09/21/20 12:00 Sodium Chloride 0.9% [Normal Saline 0.9%] 1,000 ml IV 83.333 mls/hr 09/21/20 16:25 Out of bed 3+ hours today [RC] TID 09/21/20 16:34 Metoprolol Inj [Lopressor Inj] 5 mg IVP Q6H PRN 09/21/20 17:00 Insulin Aspart [NovoLOG] 5 unit SUBQ TIDWM 09/21/20 21:00 Insulin Glargine [Lantus Solostar] 20 unit SUBQ QPM Metoprolol Tartrate [Lopressor] 50 mg PO BID 09/22/20 09:00 Pantoprazole [Protonix] 40 mg IVP BID 09/22/20 14:00 H&H [HEMOGLOBIN AND HEMATOCRIT] [HEME] Timed 09/23/20 05:00 CRP - C-REACTIVE PROTEIN [CHEM] DAILYLAB 09/24/20 05:00 CRP - C-REACTIVE PROTEIN [CHEM] DAILYLAB 09/25/20 05:00 CRP - C-REACTIVE PROTEIN [CHEM] DAILYLAB Subjective - Subjective Patient Reports: Feeling Better Objective Vital Signs: Vital Signs - 24 hr 09/21/20 09/21/20 09/21/20 15:09 15:53 18:26 Temperature 37.3 C Heart Rate 105 H 102 H Heart Rate [ 113 H Brachial] Respiratory 20 20 20 Rate Blood Pressure Blood Pressure 107/62 [Right Brachial artery] O2 Saturation 93 09/21/20 09/22/20 09/22/20 20:57 00:00 07:20 Temperature 37.1 C Heart Rate 110 H Heart Rate [ 78 Brachial] Respiratory 18 20 Rate Blood Pressure 120/62 Blood Pressure 111/59 L [Right Brachial artery] O2 Saturation 93 09/22/20 09/22/20 07:50 08:24 Temperature 36.2 C L Heart Rate Heart Rate [ 83 Brachial] Respiratory 18 Rate Blood Pressure 123/67 Blood Pressure 123/67 [Right Brachial artery] O2 Saturation 92 Oxygen O2 Source Room air I&O (Last 24 Hrs): Intake and Output Totals x24h 09/20/20 09/21/20 09/22/20 23:59 23:59 23:59 Intake Total 2450 1520 2204.439 Output Total 2000 800 Balance 355 679 0911.439 General: Alert, Oriented x3, Cooperative, No acute distress HEENT: Atraumatic Neck: Supple Lymphatic: no adenopathy Neuro: Alert, Non Focal, Oriented Times 3 Cardiovascular: Regular rate, Normal S1, Normal S2 Respiratory: Chest non-tender, No respiratory distress Abdomen: Normal bowel sounds, Soft, No tenderness Extremities: Normal pulses - Results Results: Laboratory Results WBC 11.3 x10^3/uL (4.8-10.8) H 09/22/20 04:31 RBC 3.47 10^6/uL (4.70-6.10) L 09/22/20 04:31 Hgb 8.8 g/dL (14.0-18.0) L 09/22/20 04:31 Hct 29.4 % (42.0-52.0) L 09/22/20 04:31 MCV 84.7 fL (80.0-94.0) 09/22/20 04:31 MCH 25.4 pg (27.0-31.0) L 09/22/20 04:31 MCHC 29.9 g/dL (32.0-36.0) L 09/22/20 04:31 RDW 15.6 % (12.0-15.0) H 09/22/20 04:31 Plt Count 576 10^3/uL (130-450) H 09/22/20 04:31 MPV 9.1 fL (7.4-11.4) 09/22/20 04:31 Reticulocyte % (Auto) 0.70 % (0.5-2.3) 09/20/20 09:15 Neut # (Auto) 8.5 10^3/uL (1.5-6.6) H 09/22/20 04:31 Lymph # (Auto) 1.8 10^3/uL (1.5-3.5) 09/22/20 04:31 [place] # (Auto) 0.6 10^3/uL (0.0-1.0) 09/22/20 04:31 Eos # (Auto) 0.1 10^3/uL (0.0-0.7) 09/22/20 04:31 Baso # (Auto) 0.1 10^3/uL (0.0-0.1) 09/22/20 04:31 Absolute Nucleated RBC 0.00 x10^3/uL 09/22/20 04:31 Nucleated RBC % 0.0 /100WBC 09/22/20 04:31 Absolute Retic 0.025 10^6/uL (0.020-0.110) 09/20/20 09:15 Sodium 137 mmol/L (135-145) 09/22/20 04:31 Potassium 4.2 mmol/L (3.5-5.0) 09/22/20 04:31 Chloride 100 mmol/L (101-111) L 09/22/20 04:31 Carbon Dioxide 26 mmol/L (21-32) 09/22/20 04:31 Anion Gap 11.0 (6-13) 09/22/20 04:31 BUN 22 mg/dL (6-20) H 09/22/20 04:31 Creatinine 1.4 mg/dL (0.6-1.2) H 09/22/20 04:31 Estimated GFR (MDRD) 51 (>89) L 09/22/20 04:31 Glucose 163 mg/dL (70-100) H 09/22/20 04:31 POC Whole Bld Glucose 147 mg/dL (70 - 100) H 09/22/20 07:48 Estimat Average Glucose 306 mg/dL (70-100) H 09/20/20 04:25 Hemoglobin A1c % 12.3 % (4.27-6.07) H 09/20/20 04:25 Lactic Acid 1.2 mmol/L (0.5-2.2) 09/20/20 00:33 Calcium 9.6 mg/dL (8.5-10.3) 09/22/20 04:31 Iron 13 ug/dL (45-182) L 09/20/20 09:15 TIBC 195 ug/dL (250-450) L 09/20/20 09:15 % Saturation 7 % (20-50) L 09/20/20 09:15 Transferrin 139 mg/dL (180-329) L 09/20/20 09:15 Ferritin 134.3 ng/mL (23.9-336.2) 09/20/20 04:25 Total Bilirubin 0.5 mg/dL (0.2-1.0) 09/19/20 19:04 AST 17 IU/L (10-42) 09/19/20 19:04 ALT 17 IU/L (10-60) 09/19/20 19:04 Alkaline Phosphatase 79 IU/L (42-121) 09/19/20 19:04 Lactate Dehydrogenase 88 IU/L (91-225) L 09/20/20 04:25 C-Reactive Protein 18.7 mg/dL (0-1.0) H 09/22/20 04:31 Total Protein 7.8 g/dL (6.7-8.2) 09/19/20 19:04 Albumin 2.5 g/dL (3.2-5.5) L 09/19/20 19:04 Globulin 5.3 g/dL (2.1-4.2) H 09/19/20 19:04 Albumin/Globulin Ratio 0.5 (1.0-2.2) L 09/19/20 19:04 Lipase 18 U/L (22-51) L 09/19/20 19:04 Prostate Specific Ag 0.400 ng/mL (0.000-2.000) 09/20/20 09:15 Free PSA 0.100 ng/mL (0.16-2.81) L 09/20/20 09:15 % Free PSA Calc 25 % (25-100) 09/20/20 09:15 Vitamin B12 144 pg/mL (180-914) L 09/20/20 04:25 Urine Color YELLOW 09/19/20 19:30 Urine Clarity CLEAR (CLEAR) 09/19/20 19:30 Urine pH 5.5 PH (5.0-7.5) 09/19/20 19:30 Ur Specific [place] 1.010 (1.002-1.030) 09/19/20 19:30 Urine Protein NEGATIVE mg/dL (NEGATIVE) 09/19/20 19:30 Urine Glucose (UA) >=1000 mg/dL (NEGATIVE) H 09/19/20 19:30 Urine Ketones NEGATIVE mg/dL (NEGATIVE) 09/19/20 19:30 Urine Occult Blood SMALL (NEGATIVE) H 09/19/20 19:30 Urine Nitrite NEGATIVE (NEGATIVE) 09/19/20 19:30 Urine Bilirubin NEGATIVE (NEGATIVE) 09/19/20 19:30 Urine Urobilinogen 0.2 (NORMAL) E.U./dL (NORMAL) 09/19/20 19:30 Ur Leukocyte Esterase NEGATIVE (NEGATIVE) 09/19/20 19:30 Urine RBC 0-5 /HPF (0-5) 09/19/20 19:30 Urine WBC 0-3 /HPF (0-3) 09/19/20 19:30 Ur Squamous Epith Cells RARE Squamous (<= Few) 09/19/20 19:30 Urine Bacteria None Seen /HPF (None Seen) 09/19/20 19:30 Urine Mucus Few Strands 09/19/20 19:30 Urine Culture Comments NOT INDICATED 09/19/20 19:30 Nasal Adenovirus (PCR) NOT DETECTED 09/19/20 20:00 Nasal B. parapertussis DNA (PCR) NOT DETECTED 09/19/20 20:00 Nasal Coronavir 229E PCR NOT DETECTED 09/19/20 20:00 Nasal Coronavir HKU1 PCR NOT DETECTED 09/19/20 20:00 Nasal Coronavir NL63 PCR NOT DETECTED 09/19/20 20:00 Nasal Coronavir OC43 PCR NOT DETECTED 09/19/20 20:00 Nasal Enterovir/Rhinovir PCR NOT DETECTED 09/19/20 20:00 Nasal Influenza B PCR NOT DETECTED 09/19/20 20:00 Nasal Influenza A PCR NOT DETECTED 09/19/20 20:00 Nasal Parainfluen 1 PCR NOT DETECTED 09/19/20 20:00 Nasal Parainfluen 2 PCR NOT DETECTED 09/19/20 20:00 Nasal Parainfluen 3 PCR NOT DETECTED 09/19/20 20:00 Nasal Parainfluen 4 PCR NOT DETECTED 09/19/20 20:00 Nasal RSV (PCR) NOT DETECTED 09/19/20 20:00 Nasal B.pertussis DNA PCR NOT DETECTED 09/19/20 20:00 Nasal C.pneumoniae (PCR) NOT DETECTED 09/19/20 20:00 [place] Human Metapneumo PCR NOT DETECTED 09/19/20 20:00 Nasal M.pneumoniae (PCR) NOT DETECTED 09/19/20 20:00 Nasal SARS-CoV-2 (PCR) NOT DETECTED 09/19/20 20:00 Stl Occult Blood (IFOB) POSITIVE (NEGATIVE) A 09/21/20 21:15 - Procedures Procedures: Procedures CLOSED ENDOSCOPIC BIOPSY OF LARGE INTESTINE (12/28/14) ENDO RECTUM POLYPECTOMY (12/28/14) ESOPHAGOGASTRODUODENOSCOPY [EGD] W/CLOSED BIOPSY (12/28/14) Sepsis Event Note (H) - Evaluation Current Stage of Sepsis: Sepsis Possible source of Sepsis: positive: Pulmonary - Sepsis Criteria Sepsis Criteria: Recorded Heart Rate greater than 90 bpm, WBC count greater than 12,000 or less than 4000, Metabolic: lactate > 2 mmol/L ABX Reporting Has patient been on IV antibiotics over the past 48 hours?: Yes Current Medications - Current Medications Current Medications: Active Medications Acetaminophen (Acetaminophen 325 Mg Tablet) 650 mg PO Q4HR PRN PRN Reason: Pain 1 to 4 Last Admin: 09/20/20 20:36 Dose: 650 mg Documented by: Hydrocodone Bitart/Acetaminophen (Hydrocod/Acetam 5/325 Mg Tablet) 1 tab PO Q6H PRN PRN Reason: PAIN Last Admin: 09/21/20 15:54 Dose: 1 tab Documented by: Albuterol (Albuterol Neb 2.5 Mg/3 Ml) 2.5 mg INH QID PRN PRN Reason: Wheezing Albuterol/Ipratropium (Ipratropium/Albuterol 3 Ml Neb) 3 ml INH RTQID [facility] Last Admin: 09/22/20 11:15 Dose: 3 ml Documented by: Atorvastatin Calcium (Atorvastatin 10 Mg Tablet) 20 mg PO QPM [facility] Last Admin: 09/21/20 21:00 Dose: 20 mg Documented by: Budesonide (Budesonide 0.5 Mg/2 Ml Neb) 0.5 mg INH RTBID BRENDA Last Admin: 09/22/20 07:20 Dose: 0.5 mg Documented by: Ferrous Gluconate (Ferrous Gluconate 324 Mg Tablet) 324 mg PO DAILYWM [facility] Last Admin: 09/22/20 08:24 Dose: 324 mg Documented by: Piperacillin Sod/Tazobactam (Sod 4.5 gm/ Sodium Chloride) 100 mls @ 25 mls/hr IV Q8H [facility] Last Infusion: 09/22/20 06:32 Dose: Infused Documented by: Insulin Aspart (Insulin Aspart 300 Unit/3 Ml Pen) 3 - 11 unit SUBQ 0800,1200,1700,2100 [facility]; Protocol Last Admin: 09/22/20 08:27 Dose: 3 unit Documented by: Insulin Aspart (Insulin Aspart 300 Unit/3 Ml Pen) 5 unit SUBQ TIDWM [facility] Last Admin: 09/22/20 08:28 Dose: 5 unit Documented by: Insulin Glargine (Insulin Glargine 300 Unit/3 Ml Pen) 10 unit SUBQ QDBREAKFAST [facility] Last Admin: 09/22/20 08:28 Dose: 10 unit Documented by: Insulin Glargine (Insulin Glargine 300 Unit/3 Ml Pen) 20 unit SUBQ QPM [facility] Last Admin: 09/21/20 21:02 Dose: 20 unit Documented by: Lorazepam (Lorazepam 0.5 Mg Tablet) 0.5 mg PO DAILY [facility] Last Admin: 09/22/20 08:25 Dose: 0.5 mg Documented by: Metoclopramide HCl (Metoclopramide 10 Mg Tablet) 5 mg PO AC [facility] Last Admin: 09/22/20 06:38 Dose: 5 mg Documented by: Metoprolol Tartrate (Metoprolol Tartrate 25 Mg Tablet) 50 mg PO BID [facility] Last Admin: 09/22/20 08:24 Dose: 50 mg Documented by: Metoprolol Tartrate (Metoprolol 5 Mg/5 Ml Vial) 5 mg IVP Q6H PRN PRN Reason: Tachycardia Multi-Ingredient Mouthwash/Gargle (Gi Cocktail 120 Ml Bottle) 30 ml PO Q4H PRN PRN Reason: Abdominal Pain Ondansetron HCl (Ondansetron Odt 4 Mg Tablet) 4 mg TL Q6HR PRN PRN Reason: Nausea / Vomiting Ondansetron HCl (Ondansetron 4 Mg/2 Ml Vial) 4 mg IVP Q6HR PRN PRN Reason: Nausea / Vomiting Pantoprazole Sodium (Pantoprazole 40 Mg Vial) 40 mg IVP BID [facility] Last Admin: 09/22/20 08:25 Dose: 40 mg Documented by: Pregabalin (Pregabalin 100 Mg Capsule) 100 mg PO TID [facility] Last Admin: 09/22/20 06:38 Dose: 100 mg Documented by: Sodium Chloride (Sodium Chloride Flush 0.9% 10 Ml Syringe) 10 ml IVP PRN PRN PRN Reason: NEEDED PER PROVIDER ORDERS Last Admin: 09/21/20 10:13 Dose: 10 ml Documented by: Sodium Chloride (Sodium Chloride Flush 0.9% 10 Ml Syringe) 10 ml IVP 0100,0900,1700 [facility] Last Admin: 09/22/20 08:25 Dose: 10 ml Documented by: Tamsulosin HCl (Tamsulosin 0.4 Mg Capsule) 0.4 mg PO DAILY [facility] Last Admin: 09/22/20 08:25 Dose: 0.4 mg Documented by: Pregabalin [Lyrica] 150 mg PO TID 09/10/13 Insulin Detemir [Levemir Flextouch] 40 units SQ BID 07/12/14 Atorvastatin [Lipitor] 20 mg PO QPM 02/23/20 Acetaminophen [Tylenol Extra Strength] 500 mg PO PRN PRN MDD 3000 MG 02/24/20 Metoprolol Tartrate 50 mg PO BID 02/24/20 Amlodipine Besylate [Norvasc] 10 mg PO DAILY 09/20/20 Aspirin EC [Ecotrin] 81 mg PO DAILY 09/20/20 Celecoxib [Celebrex] 200 mg PO DAILY 09/20/20 Ipratropium/Albuterol [Combivent Respimat] 1 puffs INH Q6H 09/20/20 Isosorbide Mononitrate [Isosorbide Mononitrate ER] 60 mg PO DAILY 09/20/20 Lidocaine Ointment 5% [Xylocaine Ointment 5%] 1 applic TOP TID PRN 09/20/20 Pantoprazole [Protonix] 40 mg PO BID 09/20/20 metFORMIN [Glucophage] 500 mg PO BID 09/20/20
[2020-09-22 14:46] LABS: HCT - HEMATOCRIT 28.3 % (42.0-52.0); HGB - HEMOGLOBIN 8.7 g/dL (14.0-18.0)
[2020-09-22 20:04] LABS: HCT - HEMATOCRIT 26.8 % (42.0-52.0); HGB - HEMOGLOBIN 8.4 g/dL (14.0-18.0)
[2020-09-22] MEDS: ATORVASTATIN 10 MG TABLET PO SCH (21:02)
[2020-09-23] MEDS: SODIUM CHLORIDE FLUSH 0.9% 10 ML SYRINGE IVP SCH ×4 (00:18→23:42)
[2020-09-23] MEDS: PIPERACILLIN/TAZOBACTAM 4.5 GM in SODIUM CHLORIDE 0.9% MINIBAG 100 ML IV SCH ×3 (02:15→18:05)
[2020-09-23 05:47] LABS: BASOPHILS # (AUTO) 0.1 10^3/uL (0.0-0.1); BASOPHILS % (AUTO) 0.4 %; EOSINOPHILS # (AUTO) 0.2 10^3/uL (0.0-0.7); EOSINOPHILS % (AUTO) 1.3 %; HCT - HEMATOCRIT 29.4 % (42.0-52.0); HGB - HEMOGLOBIN 8.9 g/dL (14.0-18.0); LYMPHOCYTES # (AUTO) 1.9 10^3/uL (1.5-3.5); MEAN CORPUSCULAR HEMOGLOBIN 25.9 pg (27.0-31.0); MEAN CORPUSCULAR HGB CONC 30.3 g/dL (32.0-36.0); MEAN CORPUSCULAR VOLUME 85.5 fL (80.0-94.0); MEAN PLATELET VOLUME 9.2 fL (7.4-11.4); MONOCYTES # (AUTO) 0.6 10^3/uL (0.0-1.0); MONOCYTES % (AUTO) 4.9 %; NEUTROPHILS # (AUTO) 8.5 10^3/uL (1.5-6.6); NEUTROPHILS % (AUTO) 75.5 %; PLT - PLATELET COUNT 613 10^3/uL (130-450); RED BLOOD COUNT 3.44 10^6/uL (4.70-6.10); RED CELL DISTRIBUTION WIDTH 15.4 % (12.0-15.0); WHITE BLOOD COUNT 11.2 x10^3/uL (4.8-10.8)
[2020-09-23 06:04] LABS: CALCIUM 10.1 mg/dL (8.5-10.3); CREATININE 1.4 mg/dL (0.6-1.2); CRP - C-REACTIVE PROTEIN 12.8 mg/dL (0-1.0); POTASSIUM 4.2 mmol/L (3.5-5.0)
[2020-09-23] MEDS: METOCLOPRAMIDE 10 MG TABLET PO SCH (06:21)
[2020-09-23] MEDS: PREGABALIN 100 MG CAPSULE PO SCH ×3 (06:21→21:14)
[2020-09-23] MEDS: BUDESONIDE 0.5 MG/2 ML NEB INH SCH ×2 (06:59→20:32)
[2020-09-23] MEDS: IPRATROPIUM/ALBUTEROL 3 ML NEB INH SCH ×4 (06:59→20:31)
[2020-09-23] MEDS ORDERED: INSULIN GLARGINE 300 UNIT/3 ML PEN SUBQ SCH ×2 (08:00→21:00)
--- NOTE | 2020-09-23 08:10 | XRAY Report ---
PROCEDURE: Chest 1 View X-Ray INDICATIONS: Follow up infiltrates. TECHNIQUE: One view of the chest was acquired. COMPARISON: 09/19/[address] with IV contrast FINDINGS: Surgical changes and devices: None. Lungs and pleura: Right lower lobe and apical consolidation have not significantly changed from the C T obtained 09/19/2020. Left lung and pleural space are clear. Mediastinum: Mediastinal contours appear normal. Heart size is normal. Bones and chest wall: No suspicious bony lesions. Overlying soft tissues appear unremarkable. IMPRESSION: No significant change in right lower lobe, right middle lobe, and right apical airspace opacities. Reviewed by: Torin Villa MD on 09/23/2020 8:09 AM PDT Approved by: Torin Villa MD on 09/23/2020 8:09 AM PDT Station ID: [id number]
[2020-09-23] MEDS: INSULIN ASPART 300 UNIT/3 ML PEN SUBQ SCH ×7 (08:16→21:11)
--- NOTE | 2020-09-23 08:56 | PROVIDER PROGRESS NOTE ---
Subjective - Prog Note Date Prog Note Date: 09/23/20 - Subjective Subjective: He feels improved from respiratory standpoint. Reports no dyspnea. Still has a little cough. He is still requiring 2 L of oxygen. He is normally not on any oxygen at home. He tells me he does have a history of COPD. It is his birthday tomorrow and he would like to go home as soon as possible. Current Medications - Current Medications Current Medications: Active Medications Acetaminophen (Acetaminophen 325 Mg Tablet) 650 mg PO Q4HR PRN PRN Reason: Pain 1 to 4 Last Admin: 09/20/20 20:36 Dose: 650 mg Documented by: Hydrocodone Bitart/Acetaminophen (Hydrocod/Acetam 5/325 Mg Tablet) 1 tab PO Q6H PRN PRN Reason: PAIN Last Admin: 09/21/20 15:54 Dose: 1 tab Documented by: Albuterol (Albuterol Neb 2.5 Mg/3 Ml) 2.5 mg INH QID PRN PRN Reason: Wheezing Albuterol/Ipratropium (Ipratropium/Albuterol 3 Ml Neb) 3 ml INH RTQID BRENDA Last Admin: 09/23/20 06:59 Dose: 3 ml Documented by: Atorvastatin Calcium (Atorvastatin 10 Mg Tablet) 20 mg PO QPM [facility] Last Admin: 09/22/20 21:02 Dose: 20 mg Documented by: Budesonide (Budesonide 0.5 Mg/2 Ml Neb) 0.5 mg INH RTBID BRENDA Last Admin: 09/23/20 06:59 Dose: 0.5 mg Documented by: Ferrous Gluconate (Ferrous Gluconate 324 Mg Tablet) 324 mg PO DAILYWM [facility] Last Admin: 09/22/20 08:24 Dose: 324 mg Documented by: Piperacillin Sod/Tazobactam (Sod 4.5 gm/ Sodium Chloride) 100 mls @ 25 mls/hr IV Q8H [facility] Last Infusion: 09/23/20 06:20 Dose: Infused Documented by: Insulin Aspart (Insulin Aspart 300 Unit/3 Ml Pen) 3 - 11 unit SUBQ 0800, 1200,1700,2100 [facility]; Protocol Last Admin: 09/23/20 08:16 Dose: Not Given Documented by: Insulin Aspart (Insulin Aspart 300 Unit/3 Ml Pen) 5 unit SUBQ TIDWM [facility] Last Admin: 09/23/20 08:17 Dose: 5 unit Documented by: Insulin Glargine (Insulin Glargine 300 Unit/3 Ml Pen) 20 unit SUBQ QPM [facility] Last Admin: 09/22/20 21:07 Dose: 20 unit Documented by: Insulin Glargine (Insulin Glargine 300 Unit/3 Ml Pen) 20 unit SUBQ QDBREAKFAST [facility] Last Admin: 09/23/20 08:20 Dose: 20 unit Documented by: Lorazepam (Lorazepam 0.5 Mg Tablet) 0.5 mg PO DAILY [facility] Last Admin: 09/22/20 08:25 Dose: 0.5 mg Documented by: Metoclopramide HCl (Metoclopramide 10 Mg Tablet) 5 mg PO AC [facility] Last Admin: 09/23/20 06:21 Dose: 5 mg Documented by: Metoprolol Tartrate (Metoprolol Tartrate 25 Mg Tablet) 50 mg PO BID [facility] Last Admin: 09/22/20 21:00 Dose: 50 mg Documented by: Metoprolol Tartrate (Metoprolol 5 Mg/5 Ml Vial) 5 mg IVP Q6H PRN PRN Reason: Tachycardia Multi-Ingredient Mouthwash/Gargle (Gi Cocktail 120 Ml Bottle) 30 ml PO Q4H PRN PRN Reason: Abdominal Pain Ondansetron HCl (Ondansetron Odt 4 Mg Tablet) 4 mg TL Q6HR PRN PRN Reason: Nausea / Vomiting Ondansetron HCl (Ondansetron 4 Mg/2 Ml Vial) 4 mg IVP Q6HR PRN PRN Reason: Nausea / Vomiting Pantoprazole Sodium (Pantoprazole 40 Mg Vial) 40 mg IVP BID [facility] Last Admin: 09/22/20 21:00 Dose: 40 mg Documented by: Pregabalin (Pregabalin 100 Mg Capsule) 100 mg PO TID [facility] Last Admin: 09/23/20 06:21 Dose: 100 mg Documented by: Sodium Chloride (Sodium Chloride Flush 0.9% 10 Ml Syringe) 10 ml IVP PRN PRN PRN Reason: NEEDED PER PROVIDER ORDERS Last Admin: 09/21/20 10:13 Dose: 10 ml Documented by: Sodium Chloride (Sodium Chloride Flush 0.9% 10 Ml Syringe) 10 ml IVP 0100,0900,1700 [facility] Last Admin: 09/23/20 00:18 Dose: 10 ml Documented by: Tamsulosin HCl (Tamsulosin 0.4 Mg Capsule) 0.4 mg PO DAILY BRENDA Last Admin: 09/22/20 08:25 Dose: 0.4 mg Documented by: Pregabalin [Lyrica] 150 mg PO TID 09/10/13 Insulin Detemir [Levemir Flextouch] 40 units SQ BID 07/12/14 Atorvastatin [Lipitor] 20 mg PO QPM 02/23/20 Acetaminophen [Tylenol Extra Strength] 500 mg PO PRN PRN MDD 3000 MG 02/24/20 Metoprolol Tartrate 50 mg PO BID 02/24/20 Amlodipine Besylate [Norvasc] 10 mg PO DAILY 09/20/20 Aspirin EC [Ecotrin] 81 mg PO DAILY 09/20/20 Celecoxib [Celebrex] 200 mg PO DAILY 09/20/20 Ipratropium/Albuterol [Combivent Respimat] 1 puffs INH Q6H 09/20/20 Isosorbide Mononitrate [Isosorbide Mononitrate ER] 60 mg PO DAILY 09/20/20 Lidocaine Ointment 5% [Xylocaine Ointment 5%] 1 applic TOP TID PRN 09/20/20 Pantoprazole [Protonix] 40 mg PO BID 09/20/20 metFORMIN [Glucophage] 500 mg PO BID 09/20/20 Objective - Vital Signs/Intake & Output Reviewed Vital Signs: Yes Vital Signs: Vital Signs x48h Temp Pulse Pulse Resp BP Pulse Ox 09/23/20 07:52 36.5 C 86 17 115/67 100 09/23/20 07:01 106 H 18 Intake & Output: Intake & Output 09/20/20 09/21/20 09/22/20 09/23/20 23:59 23:59 23:59 23:59 Intake Total 2450 1520 3935.718 600 Output Total 2000 800 900 Balance 467 168 6429.718 -300 - Objective General Appearance: positive: No acute distress, Alert Eyes Bilateral: positive: Normal inspection, Conjunctivae nml ENT: positive: ENT inspection nml, Other (Nasal cannula in place.) Neck: positive: Nml inspection Respiratory: positive: No respiratory distress, Rhonchi (Faint rhonchi in the right upper and lower lung field.) Cardiovascular: positive: Regular rate & rhythm, No murmur. negative: Tachycardia Skin: positive: Warm, Dry Extremities: positive: No pedal edema Neurologic/Psychiatric: negative: Disoriented to person, Disoriented to place - Lab Results Fish Bones: 09/23/20 05:22 09/23/20 05:22 Other Labs: Lab Results x24hrs 09/23/20 09/23/20 09/23/20 Range/Units 07:54 05:22 05:22 WBC 11.2 H (4.8-10.8) x10^3/uL RBC 3.44 L (4.70-6.10) 10^6/uL Hgb 8.9 L (14.0-18.0) g/dL Hct 29.4 L (42.0-52.0) % MCV 85.5 (80.0-94.0) fL MCH 25.9 L (27.0-31.0) pg MCHC 30.3 L (32.0-36.0) g/dL RDW 15.4 H (12.0-15.0) % Plt Count 613 H (130-450) 10^3/uL MPV 9.2 (7.4-11.4) fL Neut # (Auto) 8.5 H (1.5-6.6) 10^3/uL Lymph # (Auto) 1.9 (1.5-3.5) 10^3/uL [place] # (Auto) 0.6 (0.0-1.0) 10^3/uL Eos # (Auto) 0.2 (0.0-0.7) 10^3/uL Baso # (Auto) 0.1 (0.0-0.1) 10^3/uL Absolute Nucleated RBC 0.00 x10^3/uL Nucleated RBC % 0.0 /100WBC Sodium 139 (135-145) mmol/L Potassium 4.2 (3.5-5.0) mmol/L Chloride 100 L (101-111) mmol/L Carbon Dioxide 28 (21-32) mmol/L Anion Gap 11.0 (6-13) BUN 21 H (6-20) mg/dL Creatinine 1.4 H (0.6-1.2) mg/dL Estimated GFR (MDRD) 51 L (>89) Glucose 113 H (70-100) mg/dL POC Whole Bld Glucose 118 H (70 - 100) mg/dL Calcium 10.1 (8.5-10.3) mg/dL C-Reactive Protein 12.8 H (0-1.0) mg/dL 09/22/20 09/22/20 09/22/20 Range/Units 20:53 19:59 16:37 WBC (4.8-10.8) x10^3/uL RBC (4.70-6.10) 10^6/uL Hgb 8.4 L (14.0-18.0) g/dL Hct 26.8 L (42.0-52.0) % MCV (80.0-94.0) fL MCH (27.0-31.0) pg MCHC (32.0-36.0) g/dL RDW (12.0-15.0) % Plt Count (130-450) 10^3/uL MPV (7.4-11.4) fL Neut # (Auto) (1.5-6.6) 10^3/uL Lymph # (Auto) (1.5-3.5) 10^3/uL [place] # (Auto) (0.0-1.0) 10^3/uL Eos # (Auto) (0.0-0.7) 10^3/uL Baso # (Auto) (0.0-0.1) 10^3/uL Absolute Nucleated RBC x10^3/uL Nucleated RBC % /100WBC Sodium (135-145) mmol/L Potassium (3.5-5.0) mmol/L Chloride (101-111) mmol/L Carbon Dioxide (21-32) mmol/L Anion Gap (6-13) BUN (6-20) mg/dL Creatinine (0.6-1.2) mg/dL Estimated GFR (MDRD) (>89) Glucose (70-100) mg/dL POC Whole Bld Glucose 290 H 178 H (70 - 100) mg/dL Calcium (8.5-10.3) mg/dL C-Reactive Protein (0-1.0) mg/dL 09/22/20 09/22/20 Range/Units 14:10 11:47 WBC (4.8-10.8) x10^3/uL RBC (4.70-6.10) 10^6/uL Hgb 8.7 L (14.0-18.0) g/dL Hct 28.3 L (42.0-52.0) % MCV (80.0-94.0) fL MCH (27.0-31.0) pg MCHC (32.0-36.0) g/dL RDW (12.0-15.0) % Plt Count (130-450) 10^3/uL MPV (7.4-11.4) fL Neut # (Auto) (1.5-6.6) 10^3/uL Lymph # (Auto) (1.5-3.5) 10^3/uL [place] # (Auto) (0.0-1.0) 10^3/uL Eos # (Auto) (0.0-0.7) 10^3/uL Baso # (Auto) (0.0-0.1) 10^3/uL Absolute Nucleated RBC x10^3/uL Nucleated RBC % /100WBC Sodium (135-145) mmol/L Potassium (3.5-5.0) mmol/L Chloride (101-111) mmol/L Carbon Dioxide (21-32) mmol/L Anion Gap (6-13) BUN (6-20) mg/dL Creatinine (0.6-1.2) mg/dL Estimated GFR (MDRD) (>89) Glucose (70-100) mg/dL POC Whole Bld Glucose 350 H (70 - 100) mg/dL Calcium (8.5-10.3) mg/dL C-Reactive Protein (0-1.0) mg/dL ABX Reporting Has patient been on IV antibiotics over the past 48 hours?: Yes Sepsis Event Note (H) - Evaluation Current Stage of Sepsis: Resolved Possible source of Sepsis: positive: Pulmonary - Sepsis Criteria Sepsis Criteria: Recorded Heart Rate greater than 90 bpm, WBC count greater than 12,000 or less than 4000, Metabolic: lactate > 2 mmol/L Assessment/Plan - Problem List (1) Pneumonia due to Pseudomonas Impression: This was the cause of his sepsis which has since resolved. He still remains hypoxic requiring 2 L of oxygen. His white count is improving as well as his CRP. I repeated a chest x-ray today which is unchanged compared to admission. His prior CTs have revealed persistent right sided opacities. Given he is still hypoxic, we will keep him on IV antibiotics for 1 more day to ensure that his white count and CRP continue to trend down. His culture did grow Pseudomonas and he has been on Zosyn with today being day 4. Zosyn today and will transition him to oral Levaquin tomorrow. Despite cultures growing Pseudomonas, there is concern for a component of aspiration we will place him on flagyl when he is transitioned to Levaquin. If he remains stable on oral antibiotics tomorrow, will look to discharge the following day. (2) Hypoxia Impression: Normally on oxygen at home but he is saturating 87% on room air at rest. This does improve on 2 L of oxygen to the mid to high 90s. Although he has a history of COPD and may ultimately require oxygen at home, I am concerned that his acute hypoxia is still related to the pneumonia. Although he does prefer to be discharged home as soon as possible, I believe he least requires another day of IV antibiotics we will look to transition to oral antibiotics tomorrow. If he remains stable then we will look to discharge him in about 48 hours and if he still requires oxygen at that time, this will be prescribed for his COPD. We will continue oxygen at this time for goal saturation greater than 87%. (3) History of COPD Impression: He does have a history of COPD but this does not appear to be in exacerbation at this time. His imaging is consistent with emphysematous changes. He is still hypoxic at this time requiring oxygen by his mention above, I believe this is related to the acute pneumonia given he is not on oxygen at home normally. He may ultimately need oxygen therapy though given the COPD. We will continue with duo nebs [id number] as well as albuterol as needed. (4) Heme positive stool Impression: His stool was heme positive yesterday but his hemoglobin has remained relatively stable. He does not report any further dark stools. Suspect this is likely related to his recent biopsies from EGD. EGD also did not reveal any obvious bleeding and given his stable hemoglobin, it is felt that he would not benefit from colonoscopy at this time. (5) Acute kidney injury superimposed on CKD Impression: Acute kidney injury was likely prerenal and has since resolved. He is back to his baseline renal function with a creatinine of 1.4. He likely has CKD secondary to his diabetes. We will continue to avoid nephrotoxins. (6) Chronic anemia Impression: Has anemia of chronic disease likely related to his CKD. Hemoglobin did drop slightly over the past 24 hours this is likely dilutional given amount of IV fluids he received as well as frequent lab draws. His stool was heme positive but he had an EGD without obvious bleeding and has mentioned above, this may be related to the recent biopsies associated with the EGD. (7) Dysphagia Impression: This is unfortunately a chronic problem for him. He has had extensive work-up including video swallow, EGDs, imaging. Repeat EGD during this admission was unremarkable. We will keep him on a PPI twice daily and continue with a mechanically altered diet with nectar thick liquids. He will continue outpatient follow-up with primary care provider and GI. Qualifiers: Dysphagia type: unspecified Qualified Code(s): R13.10 - Dysphagia, unspecified (8) Hypertension Impression: His blood pressure has been well controlled on just the metoprolol alone. We will likely discontinue his amlodipine on discharge and have him follow-up with his primary care provider. (9) Type 2 diabetes mellitus treated with insulin Impression: He has a history of type 2 diabetes mellitus and his A1c is quite elevated at 12.3%. His blood glucose is improved compared to admission but still quite labile. He is on 40 units twice daily of Levemir plus Metformin at home. I have increased his evening Lantus dose to 30 units while hospitalized and will continue with 20 units in the morning. We will also continue with sliding scale. Carb controlled diet. We discussed the importance of strict blood glucose control and he will need close follow-up with primary care provider and a nurse informatics educator. He states that he is supposed to be referred to an manufacturing sales representative and his primary care provider is in the process of doing so. (10) Pulmonary nodules Impression: CT this admission showed multiple small bilateral pulmonary nodules. Repeat imaging was recommended in 3 months and this will need to be obtained on an outpatient basis. (11) Rheumatoid arthritis Impression: He has a history of rheumatoid arthritis but he is not on DMARDs. He is also not on NSAIDs given his history of chronic kidney disease. Continue outpatient follow-up with his armature varnisher. (12) Hyponatremia Impression: This was hypovolemic hyponatremia has resolved with IV fluids. (13) Sepsis Impression: This was secondary to the pneumonia and has resolved. Qualifiers: Sepsis type: sepsis due to unspecified organism Sepsis acute organ dysfunction status: with acute organ dysfunction Severe sepsis acute organ dysfunction type: acute renal failure Acute renal failure type: unspecified Severe sepsis shock status: without septic shock Qualified Code(s): A41.9 - Sepsis, unspecified organism; R65.20 - Severe sepsis without septic shock; N17.9 - Acute kidney failure, unspecified
[2020-09-23] MEDS: TAMSULOSIN 0.4 MG CAPSULE PO SCH (09:20)
[2020-09-23] MEDS: FERROUS GLUCONATE 324 MG TABLET PO SCH (09:20)
[2020-09-23] MEDS: LORazepam 0.5 MG TABLET PO SCH (09:21)
[2020-09-23] MEDS: HYDROcod/ACETAM 5/325 MG TABLET PO PRN ×2 (09:21→18:06)
[2020-09-23] MEDS: ISOSORBIDE MONONITRATE ER 30 MG TABLET PO SCH (09:21)
[2020-09-23] MEDS: METOPROLOL TARTRATE 25 MG TABLET PO SCH ×2 (09:21→21:14)
[2020-09-23] MEDS: PANTOPRAZOLE 40 MG VIAL IVP SCH ×2 (09:22→21:14)
[2020-09-23] MEDS ORDERED: INSULIN GLARGINE 300 UNIT/3 ML PEN SUBQ ONE (13:00)
--- NOTE | 2020-09-23 15:37 | PROVIDER PROGRESS NOTE ---
Subjective - Prog Note Date Prog Note Date: 09/23/20 - Subjective Pt reports feeling: Improved (tolerating diet well) Objective - Vital Signs/Intake & Output Vital Signs: Vital Signs x48h Temp Pulse Pulse Resp BP Pulse Ox 09/23/20 11:49 88 20 09/23/20 07:52 36.5 C 86 17 115/67 100 Intake & Output: Intake & Output 09/20/20 09/21/20 09/22/20 09/23/20 23:59 23:59 23:59 23:59 Intake Total 2450 1520 3935.718 1060 Output Total 2000 800 900 Balance 691 668 3751.718 160 - Objective General Appearance: positive: No acute distress, Alert Abdomen: positive: No distention - Lab Results Fish Bones: 09/23/20 05:22 09/23/20 05:22 Other Labs: Lab Results x24hrs 09/23/20 09/23/20 09/23/20 Range/Units 11:56 07:54 05:22 WBC (4.8-10.8) x10^3/uL RBC (4.70-6.10) 10^6/uL Hgb (14.0-18.0) g/dL Hct (42.0-52.0) % MCV (80.0-94.0) fL MCH (27.0-31.0) pg MCHC (32.0-36.0) g/dL RDW (12.0-15.0) % Plt Count (130-450) 10^3/uL MPV (7.4-11.4) fL Neut # (Auto) (1.5-6.6) 10^3/uL Lymph # (Auto) (1.5-3.5) 10^3/uL [place] # (Auto) (0.0-1.0) 10^3/uL Eos # (Auto) (0.0-0.7) 10^3/uL Baso # (Auto) (0.0-0.1) 10^3/uL Absolute Nucleated RBC x10^3/uL Nucleated RBC % /100WBC Sodium 139 (135-145) mmol/L Potassium 4.2 (3.5-5.0) mmol/L Chloride 100 L (101-111) mmol/L Carbon Dioxide 28 (21-32) mmol/L Anion Gap 11.0 (6-13) BUN 21 H (6-20) mg/dL Creatinine 1.4 H (0.6-1.2) mg/dL Estimated GFR (MDRD) 51 L (>89) Glucose 113 H (70-100) mg/dL POC Whole Bld Glucose 429 H 118 H (70 - 100) mg/dL Calcium 10.1 (8.5-10.3) mg/dL C-Reactive Protein 12.8 H (0-1.0) mg/dL 09/23/20 09/22/20 09/22/20 Range/Units 05:22 20:53 19:59 WBC 11.2 H (4.8-10.8) x10^3/uL RBC 3.44 L (4.70-6.10) 10^6/uL Hgb 8.9 L 8.4 L (14.0-18.0) g/dL Hct 29.4 L 26.8 L (42.0-52.0) % MCV 85.5 (80.0-94.0) fL MCH 25.9 L (27.0-31.0) pg MCHC 30.3 L (32.0-36.0) g/dL RDW 15.4 H (12.0-15.0) % Plt Count 613 H (130-450) 10^3/uL MPV 9.2 (7.4-11.4) fL Neut # (Auto) 8.5 H (1.5-6.6) 10^3/uL Lymph # (Auto) 1.9 (1.5-3.5) 10^3/uL [place] # (Auto) 0.6 (0.0-1.0) 10^3/uL Eos # (Auto) 0.2 (0.0-0.7) 10^3/uL Baso # (Auto) 0.1 (0.0-0.1) 10^3/uL Absolute Nucleated RBC 0.00 x10^3/uL Nucleated RBC % 0.0 /100WBC Sodium (135-145) mmol/L Potassium (3.5-5.0) mmol/L Chloride (101-111) mmol/L Carbon Dioxide (21-32) mmol/L Anion Gap (6-13) BUN (6-20) mg/dL Creatinine (0.6-1.2) mg/dL Estimated GFR (MDRD) (>89) Glucose (70-100) mg/dL POC Whole Bld Glucose 290 H (70 - 100) mg/dL Calcium (8.5-10.3) mg/dL C-Reactive Protein (0-1.0) mg/dL 09/22/20 Range/Units 16:37 WBC (4.8-10.8) x10^3/uL RBC (4.70-6.10) 10^6/uL Hgb (14.0-18.0) g/dL Hct (42.0-52.0) % MCV (80.0-94.0) fL MCH (27.0-31.0) pg MCHC (32.0-36.0) g/dL RDW (12.0-15.0) % Plt Count (130-450) 10^3/uL MPV (7.4-11.4) fL Neut # (Auto) (1.5-6.6) 10^3/uL Lymph # (Auto) (1.5-3.5) 10^3/uL [place] # (Auto) (0.0-1.0) 10^3/uL Eos # (Auto) (0.0-0.7) 10^3/uL Baso # (Auto) (0.0-0.1) 10^3/uL Absolute Nucleated RBC x10^3/uL Nucleated RBC % /100WBC Sodium (135-145) mmol/L Potassium (3.5-5.0) mmol/L Chloride (101-111) mmol/L Carbon Dioxide (21-32) mmol/L Anion Gap (6-13) BUN (6-20) mg/dL Creatinine (0.6-1.2) mg/dL Estimated GFR (MDRD) (>89) Glucose (70-100) mg/dL POC Whole Bld Glucose 178 H (70 - 100) mg/dL Calcium (8.5-10.3) mg/dL C-Reactive Protein (0-1.0) mg/dL Sepsis Event Note (H) - Evaluation Current Stage of Sepsis: Resolved Possible source of Sepsis: positive: Pulmonary - Sepsis Criteria Sepsis Criteria: Recorded Heart Rate greater than 90 bpm, WBC count greater than 12,000 or less than 4000, Metabolic: lactate > 2 mmol/L Assessment/Plan - Problem List (1) Dysphagia Impression: He has a motility problem without obstruction or mass. We discussed multiple small soft meals with plenty of fluids and avoidance certain foods Qualifiers: Dysphagia type: unspecified Qualified Code(s): R13.10 - Dysphagia, un specified
[2020-09-23] MEDS: ATORVASTATIN 10 MG TABLET PO SCH (21:21)
[2020-09-24] MEDS: PIPERACILLIN/TAZOBACTAM 4.5 GM in SODIUM CHLORIDE 0.9% MINIBAG 100 ML IV SCH (01:58)
[2020-09-24] MEDS: HYDROcod/ACETAM 5/325 MG TABLET PO PRN ×2 (02:02→08:14)
[2020-09-24 05:08] LABS: BASOPHILS # (AUTO) 0.1 10^3/uL (0.0-0.1); BASOPHILS % (AUTO) 0.5 %; EOSINOPHILS # (AUTO) 0.2 10^3/uL (0.0-0.7); EOSINOPHILS % (AUTO) 1.5 %; HCT - HEMATOCRIT 28.9 % (42.0-52.0); HGB - HEMOGLOBIN 8.7 g/dL (14.0-18.0); LYMPHOCYTES # (AUTO) 2.1 10^3/uL (1.5-3.5); MEAN CORPUSCULAR HEMOGLOBIN 25.7 pg (27.0-31.0); MEAN CORPUSCULAR HGB CONC 30.1 g/dL (32.0-36.0); MEAN CORPUSCULAR VOLUME 85.5 fL (80.0-94.0); MEAN PLATELET VOLUME 8.8 fL (7.4-11.4); MONOCYTES # (AUTO) 0.6 10^3/uL (0.0-1.0); MONOCYTES % (AUTO) 5.5 %; NEUTROPHILS # (AUTO) 7.1 10^3/uL (1.5-6.6); NEUTROPHILS % (AUTO) 70.6 %; PLT - PLATELET COUNT 605 10^3/uL (130-450); RED BLOOD COUNT 3.38 10^6/uL (4.70-6.10); RED CELL DISTRIBUTION WIDTH 15.4 % (12.0-15.0)
[2020-09-24] MEDS: PREGABALIN 100 MG CAPSULE PO SCH (05:20)
[2020-09-24 05:26] LABS: CALCIUM 9.7 mg/dL (8.5-10.3); CREATININE 1.5 mg/dL (0.6-1.2); CRP - C-REACTIVE PROTEIN 8.3 mg/dL (0-1.0); MAGNESIUM 1.6 mg/dL (1.7-2.8); PHOSPHORUS 4.2 mg/dL (2.5-4.6); POTASSIUM 3.9 mmol/L (3.5-5.0)
--- NOTE | 2020-09-24 07:26 | Discharge Plan ---
Discharge Plan Problem Reviewed?: Yes Disposition: Home, Self Care Condition: Stable Prescriptions: Amox/Clav 875/125 [Augmentin 875/125 Tab] 1 each PO BID 2 Days #5 tablet levoFLOXacin [Levaquin] 750 mg PO DAILY 5 Days #15 tablet Diet: Diabetic Instruction Topics: Dysphagia Diet Altered Health Concerns: You were admitted to the hospital because of pneumonia. This is likely due to aspiration from your difficulty swallowing. You were treated with antibiotics with improvement in your symptoms. The surgeon saw you and performed an endoscopy given your difficulty swallowing and this did not reveal anything significant. There was inflammation of your esophagus near your stomach likely due to regurgitation and you should continue to take the Protonix for this. Given you have COPD, we did test to see if you need oxygen at home and you do not. Your oxygen numbers are fine at rest and with activity without any oxygen supplementation. I do recommend that you consider a sleep study on an outpatient base. You will also need to continue antibiotics as prescribed below for a few more days. Your blood glucose has been poorly controlled over the last few months and you need to follow-up closely with your primary care provider. Plan of Treatment: Please take the Levaquin once a day for five more days beginning tomorrow to complete 10 days of therapy for your pneumonia. You will also need to take the Augmentin twice a day beginning this evening for 3 more days to complete 7 days of therapy for your pneumonia. Please stop taking amlodipine at home. This is a blood pressure medication. Your blood pressure has been well controlled without it during this hospitalization. The CT scan of your lungs that was obtained here showed nodules in both of your lungs. You will need a repeat CT scan in about 3 months with your primary care provider to ensure that these are stable. Care Goals: The goal is to treat your underlying aspiration and difficulty swallowing. Assessment: The patient expressed understanding of the treatment plan. Additional Instructions or Follow Up instructions: It is recommended that you follow-up with your primary care provider next week. No Smoking: If you smoke, Please STOP! Call for help. Follow-up with: Nya Tee DO [Primary Care Provider] -
--- NOTE | 2020-09-24 07:26 | DISCHARGE SUMMARY ---
Discharge Summary Admit Date: 09/19/20 Discharge Date: 09/24/20 Discharging Provider: Yakov Curiel Primary Care Provider: Nya Tee Code Status: Do Not Attempt Resuscitation Condition at Discharge: Stable Discharge Disposition: 01 Home, Self Care - DIAGNOSES Admission Diagnoses: Sepsis Aspiration pneumonia Dysphagia Type 2 diabetes mellitus with long-term use of insulin Hemic cardiomyopathy History of recent tuberculosis Weight loss, nonintentional Acute kidney injury Hyponatremia Chronic anemia Discharge Diagnoses with Status of Each Condition: Sepsis - resolved. Pneumonia due to Pseudomonas - improved. Hypoxia - resolved. History of COPD - stable. Heme positive stool - stable. Acute kidney injury superimposed on CKD - resolved. Chronic anemia - stable. Dysphagia - stable. Hypertension - stable. Type 2 diabetes mellitus treated with insulin - ongoing. Pulmonary nodules - stable. Rheumatoid arthritis - stable. Hyponatremia - improved. - HPI History of Present Illness: H&P per Dr. Jones: This is a 64-year-old white male who has hypertension, ischemic cardiomyopathy, and diabetes mellitus that has been having problems with dysphagia for over a year. It is mainly with thin liquids. It has been getting steadily worse to the point that swallowing any amount of liquids results and increasing cough, and increasing gurgling sounds in his lungs. The last few weeks have been particularly problematic. He called his primary care provider office on September 15. He told him that he could not even swallow water. They called him back today and told him that he needed to be seen in the emergency room. He has a visit with his batch trucker tomorrow, and with another provider on for diabetic classes.His diabetes is recently been quite uncontrolled. He had to have his insulin doubled in the last month. He has a history of recurrent aspiration pneumonia that was thought to be secondary to poorly controlled GERD. In December 2014 EGD which showed persistent reflux symptoms despite PPIs. He had a normal esophagus, antral erosion and normal duodenum. In April 2019 he underwent [facility] that was notable for frequent silent tracheal aspiration. With history of cough and regurgitation of undigested food. At that point he also to limited been going on for a year. He describes cervical arthritis with a protruding neck position. At that point in time they recommended nectar thick liquids, mechanical soft diet. Upright 90 degrees. Chopped food with single sips after each bite. [place] Krist[place] pad[place] [facility] [place] At that visit he describes dysphagia that has been longstanding but worsening. In spite of pantoprazole twice a day he continued to describe reflux, regurgitation, postnasal drip and chronic cough to Dr. Flowers. He described shortness of breath and dyspnea on exertion with a productive cough that waxed and waned. The sprinkler repair technician was concerned with the state of his respiratory status at that visit. He had labored breathing, cough, abnormal breath sounds. He strongly recommended a pulmonary work-up prior to another EGD to avoid respiratory compromise during the procedure. He also thought that the patient would be a probable candidate for antireflux surgery. Not much more could be done to manage his GERD from a medical standpoint. He was to have an elective surgery June 2020 for his shoulder. But they noted an elevated white cell count with preop labs. CT of the chest at that t lara showed pneumonia and it was suggested that he had follow-up to make sure he did not have neoplasm. He was seen by Dr. Elías Gates from [facility] July 25, 2020. She obtained the history of increasing cough, especially with water. He was complaining of appetite loss, and weight loss. Occasional night sweats. Overall about a 20 pound weight loss. He was off-and-on tired. Off-and-on dizzy. She was mainly seeing him for the leukocytosis and thrombocytosis. She made no mention of a lung mass. She evaluated him for myeloproliferative disorder. His peripheral blood PCR for JAK2 mutation, MPL, and CALR mutation were all negative. BCR/ABL was negative as well. He had been treated for the changes on CT with antibiotics. By his second visit with the oncologist his leukocytosis had resolved and she did not need to see him in follow-up. He also had a lung biopsy done by a different provider. He thinks it was a surgeon named Dr. Weathers. He thinks it was done at [facility] in August. When I looked at his medical records, it was done by Dr. Jorje Barahona and it was a flexible and navigational bronchoscopy with biopsy. This was done July 26, 2020. As far as he knows, the lung biopsy showed him to have "scar tissue". Ever since he had a lung biopsy, his reflux and inability to swallow even thin liquids is much, much worse. In the note with the surgeon, CAT scans from July 04, 2020, July 26, [address] were reviewed when his CT was repeated August 22, 2020. The density in the anterior inferior portion of the right upper lobe has significantly improved over time. Findings were consistent with an improving right upper lobe pneumonia. Over time the right middle lobe is collapsed and there is associated bronchiectasis in the right middle lobe. There is moderate centrilobular emphysema. No focal suspicious masses. No pleural effusions. No pericardial effusion. Diffuse idiopathic skeletal hyperostosis versus ankylosing spondylitis seen. No adenopathy. He will can walk a few blocks without shortness of breath. No edema or orthopnea. Last seen by cardiology September 07, [address] Hightower. Echo May 2020 with EF 41%. Mild global hypokinesis left ventricle. Basal inferior aneurysm. Akinesis of basal inferior and inferoseptal munoz. RV normal. Mild AR. Compared to prior echo mild reduction in EF noted. Nuclear medicine stress test with old AR in proximal and mid inferior wall, proximal inferoseptal munoz with mild jennifer-infarct ischemia in the inferior apex, distal inferior and distal inferolateral munoz. Coronary angiogram September 2017 with inferior basilar akinesis, ejection fraction 40 to 45%. Left main open. LAD with minimal luminal irregularities in the proximal and mid vessel. Ramus intermedius open. Circumflex open. RCA codominant with a wraparound the LAD with chronic total occlusion in the proximal vessel. Right to right and left to right collaterals noted. Attempts to cross the chronic total occlusion with the wire were unsuccessful. Medical management and risk factor modification recommended. He was seen by CAREY Johnson. Temperature was 36.6. He was tachycardic at 102. Blood pressure 139/72. Respirations 18. 100% on room air. Again, his presentation was that of dysphagia. No fever, chills, sweats. No shortness of breath. He was alert, well-developed and well-nourished. A supple neck. Normal swallowing seen. He had a cardiac murmur. Rhonchi both lungs with right greater than left. Otherwise clear without any respiratory distress. Abdomen was benign. His white cell count was elevated at 16.3 again. Hemoglobin 9.5. Sodium 125, and BUN acutely elevated to 51 with creatinine acutely elevated to two. Random glucose 353. Lactic acid 2.5 in a man who is on Metformin. Albumin was low at 2.5. In order to fully evaluate him the ER provider has orde red a CT of the neck, and CT of the chest and those are pending at the time of admission. - CONSULTS | PROCEDURES Consultations: General Surgery, Speech Therapy Procedures: He underwent endoscopy on September 20 with general surgery. The findings were: 1. Mucopurulence within the oropharynx aggressively aspirated and suctioned. 2. Similar material noted at the level of the larynx without any obstructing lesion noted. 3. Thoracic esophagus evaluated without any mass lesion appreciated. 4. GE junction widely patent. Diffuse distal esophageal/gastroesophageal junctional inflammatory changes biopsied at the conclusion of this case cold forceps. 5. Duodenum intubated with a patent pylorus. No duodenitis. Randomly biopsied cold forceps. 6. Antrum with mild gastritis biopsied cold forceps. 7. Hiatal hernia appreciated. No diffuse gastritis appreciated. 8. GE junctional inflammatory changes biopsied cold forceps. 9. Mid esophageal biopsies obtained as well cold forceps. 10. Again throughout the entirety of this exam no obstructing mass lesions or other stricture/stenoses appreciated. - HOSPITAL COURSE Hospital Course: He was admitted for sepsis secondary to aspiration pneumonia and acute kidney injury as well as hyponatremia. He was started on Zosyn IV empirically for the aspiration pneumonia. He was treated with IV fluids for hyponatremia and acute kidney injury with resolution of both. His renal function returned to his baseline creatinine of 1.5. His white count and CRP improved on a daily basis. He did initially require oxygen therapy but this was able to be weaned off on day of discharge. His blood cultures have been negative to date. Sputum culture grew Pseudomonas. He remained on IV Zosyn until his white count normalized as well as resolution of his hypoxia. Given his dysphagia, general surgery was consulted and he went underwent endoscopy on September 20 which showed diffuse distal esophageal/gastroesophageal inflammatory changes. Pathology was negative for H. pylori. He was also seen by speech therapy and a dysphagia mechanically altered diet and nectar thick liquids were recommended. He is chronically anemic and his hemoglobin did decrease slightly during his hospitalization which was felt to be dilutional due to IV fluids he had received. His stool was checked and this was heme positive but given his stable hemoglobin, further work-up was not obtained as it was felt this was likely related to the biopsies given he had a recent endoscopy. An exercise desaturation test was performed prior to discharge and the patient does not require oxygen therapy. His oxygen saturations were 96% at rest and this did not decrease with activity. An A1c was obtained during his hospitalization is elevated at 12%. His blood glucose was difficult to control initially but this improved as we resumed his home regimen. I have asked him to continue his home regimen and to follow-up with his primary care provider who he tells me has referred him to an elementary school librarian. He was discharged home on Levaquin 750 mg daily for 5 more days to complete 10 days of therapy for the Pseudomonas pneumonia. He was also discharged on Augmentin twice daily for 3 more days to complete 7 days of therapy for possible aspiration pneumonia given his chronic dysphagia. I recommended that he follow- up with his primary care provider for further work-up of this. A CT of the chest did reveal bilateral pulmonary nodules and repeat imaging is recommended in 3 months. This was discussed with the patient who tells me that he is scheduled for a repeat CT around November given the chronic scarring in his right upper lobe. I also asked him to discontinue his amlodipine on discharge as his blood pressure has been well controlled on just the metoprolol. I also asked him to continue his aspirin despite the heme positive stool given his history of coronary artery disease the fact that his hemoglobin has been stable without evidence of significant bleeding. - ALLERGIES Allergies/Adverse Reactions: Allergies Allergy/AdvReac Type Severity Reaction Status Date / Time No Known Drug Allergies Allergy Verified 09/19/20 19:09 - MEDICATIONS Home Medications: Ambulatory Orders Medication Instructions Recorded Confirmed Pregabalin [Lyrica] 150 mg PO TID 09/10/13 09/20/20 Insulin Detemir [Levemir Flextouch] 40 units SQ BID 07/12/14 09/20/20 Atorvastatin [Lipitor] 20 mg PO QPM 02/23/20 09/20/20 Acetaminophen [Tylenol Extra 500 mg PO PRN PRN MDD 3000 MG 02/24/20 09/20/20 Strength] Metoprolol Tartrate 50 mg PO BID 02/24/20 09/20/20 Aspirin EC [Ecotrin] 81 mg PO DAILY 09/20/20 09/20/20 Ipratropium/Albuterol [Combivent 1 puffs INH Q6H 09/20/20 09/20/20 Respimat] Isosorbide Mononitrate [Isosorbide 60 mg PO DAILY 09/20/20 09/20/20 Mononitrate ER] Lidocaine Ointment 5% [Xylocaine 1 applic TOP TID PRN 09/20/20 09/20/20 Ointment 5%] Pantoprazole [Protonix] 40 mg PO BID 09/20/20 09/20/20 metFORMIN [Glucophage] 500 mg PO BID 09/20/20 09/20/20 Amox/Clav 875/125 [Augmentin 1 each PO BID 2 Days #5 tablet 09/24/20 875/125 Tab] levoFLOXacin [Levaquin] 750 mg PO DAILY 5 Days #15 tablet 09/24/20 - PHYSICAL EXAM AT DISCHARGE General Appearance: positive: No acute distress, Alert Eyes Bilateral: positive: Normal inspection, Conjunctivae nml ENT: positive: ENT inspection nml Neck: positive: Nml inspection Respiratory: positive: No respiratory distress, Rhonchi (Right lung field.). negative: Wheezes, Rales Cardiovascular: positive: Regular rate & rhythm, No murmur. negative: Tachycardia Abdomen: positive: Non-tender, No distention. negative: Tenderness, Guarding, Rebound Skin: positive: Warm, Dry Extremities: positive: Pedal edema (Trace edema.) Neurologic/Psychiatric: positive: Motor nml. negative: Disoriented to person, Disoriented to place - LABS Result Diagrams: 09/24/20 05:01 09/24/20 05:01 - DIAGNOSTIC IMAGING Diagnostic Imaging Results: Final report reviewed - SEPSIS Current Stage of Sepsis: Resolved Possible source of Sepsis: Pulmonary Sepsis Criteria: Recorded Heart Rate greater than 90 bpm, WBC count greater than 12,000 or less than 4000, Metabolic: lactate > 2 mmol/L - FOLLOW UP Follow Up: He was asked to follow-up with primary care provider in 1 week. He will need a repeat CT of the chest in 3 months given he had bilateral pulmonary nodules. - TIME SPENT Time Spent in Discharge (Minutes): 36
[2020-09-24] MEDS: BUDESONIDE 0.5 MG/2 ML NEB INH SCH (07:41)
[2020-09-24] MEDS: IPRATROPIUM/ALBUTEROL 3 ML NEB INH SCH (07:41)
[2020-09-24] MEDS ORDERED: INSULIN GLARGINE 300 UNIT/3 ML PEN SUBQ SCH (08:00)
[2020-09-24] MEDS: INSULIN ASPART 300 UNIT/3 ML PEN SUBQ SCH ×2 (08:03→08:09)
[2020-09-24] MEDS: SODIUM CHLORIDE FLUSH 0.9% 10 ML SYRINGE IVP PRN (08:10)
[2020-09-24] MEDS: SODIUM CHLORIDE FLUSH 0.9% 10 ML SYRINGE IVP SCH (08:10)
[2020-09-24] MEDS: PANTOPRAZOLE 40 MG VIAL IVP SCH (08:10)
[2020-09-24] MEDS: ISOSORBIDE MONONITRATE ER 30 MG TABLET PO SCH (08:12)
[2020-09-24] MEDS: METOPROLOL TARTRATE 25 MG TABLET PO SCH (08:12)
[2020-09-24] MEDS: LORazepam 0.5 MG TABLET PO SCH (08:14)
[2020-09-24] MEDS: TAMSULOSIN 0.4 MG CAPSULE PO SCH (08:14)
[2020-09-24 08:15] VITALS: BP 114/66
[2020-09-24] MEDS ORDERED: polyethylene glycoL 3350 17 GM PACKET PO SCH (09:00)
[2020-09-24] MEDS ORDERED: AMOX/CLAV 875 MG/125 MG TABLET PO SCH (09:00)
[2020-09-24] MEDS ORDERED: levoFLOXacin 250 MG TABLET PO SCH (09:00)
[2020-09-24] MEDS ORDERED: FERROUS GLUCONATE 324 MG TABLET PO SCH (12:00)
== END 2020-09-24 11:00 | disposition home or self-care (01) | DRG 871 ==
LOC: ED 18:28 → MS2 20:38
PROVIDERS: ADMIT Specialist; ATTEND Internal Medicine
PROC: 0DB78ZX Excision of Stomach, Pylorus, Via Natural or Artificial Opening Endoscopic, Diagnostic (ICD-10-PCS; 2020-09-20)
PROC: 0DB38ZX Excision of Lower Esophagus, Via Natural or Artificial Opening Endoscopic, Diagnostic (ICD-10-PCS; 2020-09-20)
PROC: 0DB48ZX Excision of Esophagogastric Junction, Via Natural or Artificial Opening Endoscopic, Diagnostic (ICD-10-PCS; 2020-09-20)
PROC: 0DB98ZX Excision of Duodenum, Via Natural or Artificial Opening Endoscopic, Diagnostic (ICD-10-PCS; principal; 2020-09-20 15:00)
DX: A41.9 Sepsis, unspecified organism (principal); J18.9 Pneumonia, unspecified organism; A41.52 Sepsis due to Pseudomonas; J15.1 Pneumonia due to Pseudomonas; J43.9 Emphysema, unspecified; E11.9 Type 2 diabetes mellitus without complications; I10 Essential (primary) hypertension; J69.0 Pneumonitis due to inhalation of food and vomit; K92.1 Melena; I13.0 Hypertensive heart and chronic kidney disease with heart failure and stage 1 through stage 4 chronic kidney disease, or unspecified chronic kidney disease; I50.22 Chronic systolic (congestive) heart failure; N17.9 Acute kidney failure, unspecified; Z87.891 Personal history of nicotine dependence; Z20.822 Contact with and (suspected) exposure to COVID-19; R59.0 Localized enlarged lymph nodes; E87.1 Hypo-osmolality and hyponatremia; R65.20 Severe sepsis without septic shock; R09.02 Hypoxemia; J43.2 Centrilobular emphysema; K29.70 Gastritis, unspecified, without bleeding; K44.9 Diaphragmatic hernia without obstruction or gangrene; E11.22 Type 2 diabetes mellitus with diabetic chronic kidney disease; F17.210 Nicotine dependence, cigarettes, uncomplicated; N18.9 Chronic kidney disease, unspecified; Z79.4 Long term (current) use of insulin; Z66 Do not resuscitate; R91.8 Other nonspecific abnormal finding of lung field; M06.9 Rheumatoid arthritis, unspecified; E86.0 Dehydration; E11.42 Type 2 diabetes mellitus with diabetic polyneuropathy; N40.1 Benign prostatic hyperplasia with lower urinary tract symptoms; R33.8 Other retention of urine; M45.2 Ankylosing spondylitis of cervical region; G89.29 Other chronic pain; M25.511 Pain in right shoulder; M54.9 Dorsalgia, unspecified; J32.0 Chronic maxillary sinusitis; I25.5 Ischemic cardiomyopathy; R13.10 Dysphagia, unspecified; Z79.899 Other long term (current) drug therapy; Z87.01 Personal history of pneumonia (recurrent); K21.00 Gastro-esophageal reflux disease with esophagitis, without bleeding; R19.4 Change in bowel habit; R35.0 Frequency of micturition; R35.1 Nocturia; R39.15 Urgency of urination; Z86.15 Personal history of latent tuberculosis infection; R63.4 Abnormal weight loss; D64.9 Anemia, unspecified; E78.00 Pure hypercholesterolemia, unspecified
CPT/HCPCS: 36415; 70491; 71045; 71046; 71260; 76770; 80048; 80053; 81001; 82274; 82607; 82728; 83036; 83540; 83605; 83615; 83690; 83735; 84100; 84153; 84154; 84466; 85014; 85018; 85025; 85045; 86140; 87040; 87070; 87181; 87205; 87631; 92610; 93005; 94640; 94761; 99284; 99285; A9270; J1650; J7120; J7626; Q9967; 0202U; 87086

== ENCOUNTER 2020-11-28 08:00 | Outpatient (CLI) | payer MEDICARE, MEDICAID ==
[2020-11-28 18:02] LABS: ESTIMATED AVERAGE GLUCOSE 206 mg/dL (70-100); HEMOGLOBIN A1c% 8.8 % (4.27-6.07)
[2020-11-28 18:18] LABS: ALBUMIN 3.9 g/dL (3.2-5.5); ALBUMIN/GLOBULIN RATIO 1.1 (1.0-2.2); BILIRUBIN,TOTAL 0.7 mg/dL (0.2-1.0); CALCIUM 9.5 mg/dL (8.5-10.3); CREATININE 1.5 mg/dL (0.6-1.2); POTASSIUM 4.9 mmol/L (3.5-5.0); TOTAL PROTEIN 7.4 g/dL (6.7-8.2)
== END 2020-11-28 23:59 | disposition home or self-care (01) ==
LOC: LAB.WCP 08:00
PROVIDERS: ATTEND Family Medicine
DX: E11.9 Type 2 diabetes mellitus without complications (principal)
CPT/HCPCS: 36415; 80053; 83036

== ENCOUNTER 2021-03-07 10:14 | Outpatient (CLI) | payer MEDICARE, MEDICAID ==
[2021-03-07 17:54] LABS: BASOPHILS # (AUTO) 0.1 10^3/uL (0.0-0.1); BASOPHILS % (AUTO) 0.9 %; EOSINOPHILS # (AUTO) 0.1 10^3/uL (0.0-0.7); EOSINOPHILS % (AUTO) 0.9 %; HCT - HEMATOCRIT 43.3 % (42.0-52.0); HGB - HEMOGLOBIN 13.5 g/dL (14.0-18.0); LYMPHOCYTES # (AUTO) 1.9 10^3/uL (1.5-3.5); LYMPHOCYTES % (AUTO) 29.8 %; MEAN CORPUSCULAR HEMOGLOBIN 29.7 pg (27.0-31.0); MEAN CORPUSCULAR HGB CONC 31.2 g/dL (32.0-36.0); MEAN CORPUSCULAR VOLUME 95.2 fL (80.0-94.0); MEAN PLATELET VOLUME 9.4 fL (7.4-11.4); MONOCYTES # (AUTO) 0.5 10^3/uL (0.0-1.0); MONOCYTES % (AUTO) 7.4 %; NEUTROPHILS # (AUTO) 3.9 10^3/uL (1.5-6.6); NEUTROPHILS % (AUTO) 60.7 %; PLT - PLATELET COUNT 282 10^3/uL (130-450); RED BLOOD COUNT 4.55 10^6/uL (4.70-6.10); RED CELL DISTRIBUTION WIDTH 14.9 % (12.0-15.0); WHITE BLOOD COUNT 6.4 x10^3/uL (4.8-10.8)
[2021-03-07 18:20] LABS: ALBUMIN 4.1 g/dL (3.2-5.5); ALBUMIN/GLOBULIN RATIO 1.2 (1.0-2.2); ALKALINE PHOSPHATASE 91 IU/L (42-121); ALT ALANINE AMINOTRANSFERASE 15 IU/L (10-60); AST ASPARTATE AMINOTRANSFERASE 18 IU/L (10-42); BILIRUBIN,TOTAL 0.6 mg/dL (0.2-1.0); BUN - BLOOD UREA NITROGEN 30 mg/dL (6-20); CALCIUM 9.7 mg/dL (8.5-10.3); CARBON DIOXIDE - CO2 26 mmol/L (21-32); CHLORIDE 103 mmol/L (101-111); CHOL/HDL RATIO 3.9 (<5.0); CHOLESTEROL 154 mg/dL; CREATININE 1.5 mg/dL (0.6-1.2); GFR - MDRD 47 (>89); GLUCOSE 240 mg/dL (70-100); HDL CHOLESTEROL 39 mg/dL; LDL CHOLESTEROL,CALCULATED 94 mg/dL; LDL/HDL RATIO 2.4 (<3.6); POTASSIUM 5.2 mmol/L (3.5-5.0); SODIUM 137 mmol/L (135-145); TOTAL PROTEIN 7.6 g/dL (6.7-8.2); TRIGLYCERIDES 105 mg/dL; VLDL CHOLESTEROL 21 mg/dL
[2021-03-07 20:13] LABS: ESTIMATED AVERAGE GLUCOSE 174 mg/dL (70-100); HEMOGLOBIN A1c% 7.7 % (4.27-6.07)
== END 2021-03-07 23:59 | disposition home or self-care (01) ==
LOC: LAB.WCP 10:14
PROVIDERS: ATTEND Family Medicine
DX: E11.8 Type 2 diabetes mellitus with unspecified complications (principal)
CPT/HCPCS: 36415; 80053; 80061; 83036; 83721; 85025

== ENCOUNTER 2021-06-07 08:00 | Outpatient (CLI) | payer MEDICARE, MEDICAID ==
[2021-06-07 18:44] LABS: BASOPHILS # (AUTO) 0.1 10^3/uL (0.0-0.1); BASOPHILS % (AUTO) 0.9 %; EOSINOPHILS # (AUTO) 0.1 10^3/uL (0.0-0.7); EOSINOPHILS % (AUTO) 1.2 %; HCT - HEMATOCRIT 45.6 % (42.0-52.0); HGB - HEMOGLOBIN 14.7 g/dL (14.0-18.0); LYMPHOCYTES # (AUTO) 2.5 10^3/uL (1.5-3.5); LYMPHOCYTES % (AUTO) 38.2 %; MEAN CORPUSCULAR HEMOGLOBIN 30.4 pg (27.0-31.0); MEAN CORPUSCULAR HGB CONC 32.2 g/dL (32.0-36.0); MEAN CORPUSCULAR VOLUME 94.4 fL (80.0-94.0); MEAN PLATELET VOLUME 9.3 fL (7.4-11.4); MONOCYTES # (AUTO) 0.4 10^3/uL (0.0-1.0); MONOCYTES % (AUTO) 5.8 %; NEUTROPHILS # (AUTO) 3.5 10^3/uL (1.5-6.6); NEUTROPHILS % (AUTO) 53.6 %; PLT - PLATELET COUNT 270 10^3/uL (130-450); RED BLOOD COUNT 4.83 10^6/uL (4.70-6.10); WHITE BLOOD COUNT 6.6 x10^3/uL (4.8-10.8)
[2021-06-07 18:49] LABS: % IRON SATURATION 26 % (20-50); ALBUMIN 3.9 g/dL (3.2-5.5); ALBUMIN/GLOBULIN RATIO 1.3 (1.0-2.2); ALKALINE PHOSPHATASE 77 IU/L (42-121); ALT ALANINE AMINOTRANSFERASE 14 IU/L (10-60); AST ASPARTATE AMINOTRANSFERASE 21 IU/L (10-42); BILIRUBIN,TOTAL 0.7 mg/dL (0.2-1.0); BUN - BLOOD UREA NITROGEN 25 mg/dL (6-20); CALCIUM 9.6 mg/dL (8.5-10.3); CARBON DIOXIDE - CO2 26 mmol/L (21-32); CHLORIDE 102 mmol/L (101-111); CHOLESTEROL 162 mg/dL; CREATININE 1.3 mg/dL (0.6-1.2); CREATININE,URINE 49.6 mg/dL; GFR - MDRD 56 (>89); GLUCOSE 106 mg/dL (70-100); HDL CHOLESTEROL 41 mg/dL; IRON 86 ug/dL (45-182); LDL CHOLESTEROL,CALCULATED 107 mg/dL; LDL/HDL RATIO 2.6 (<3.6); MICROALBUM/CREATININE RATIO,UR 82.7 ug/mg (<30.0); MICROALBUMIN,URINE 4.1 mg/dL (0-300.0); SODIUM 138 mmol/L (135-145); TOTAL IRON BINDING CAPACITY 330 ug/dL (250-450); TOTAL PROTEIN 6.9 g/dL (6.7-8.2); TRANSFERRIN 236 mg/dL (180-329); TRIGLYCERIDES 71 mg/dL; VLDL CHOLESTEROL 14 mg/dL
[2021-06-07 18:59] LABS: FERRITIN 24.8 ng/mL (23.9-336.2)
[2021-06-07 20:28] LABS: ESTIMATED AVERAGE GLUCOSE 151 mg/dL (70-100); HEMOGLOBIN A1c% 6.9 % (4.27-6.07)
== END 2021-06-07 23:59 | disposition home or self-care (01) ==
LOC: LAB.WCP 08:00
PROVIDERS: ATTEND Family Medicine
DX: E11.8 Type 2 diabetes mellitus with unspecified complications (principal); D64.9 Anemia, unspecified
CPT/HCPCS: 36415; 80053; 80061; 82043; 82570; 82607; 82728; 83036; 83540; 83721; 84466; 85025

== ENCOUNTER 2021-10-04 10:15 | Outpatient (CLI) | payer MEDICARE, MEDICAID ==
--- NOTE | 2021-10-04 19:14 | XRAY Report ---
PROCEDURE: Hips 2V BILAT INDICATIONS: HIP PAIN, LEFT; ANKYLOSING SPONDYLITIS TECHNIQUE: 2 views of both hips obtained COMPARISON: None FINDINGS: Bones: No fractures or dislocations. No suspicious bony lesions. The visualized pelvic ring appear s intact. Moderate bilateral acetabular joint space and narrowing. Surgical clips noted in the right hemipelvis. Flowing enthesophyte noted in the lower lumbar spine, and fusion of both sacroiliac joint s present. Soft tissues: No suspicious soft tissue calcifications or masses. IMPRESSION: 1. Moderate bilateral hip osteoarthritis. 2. 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
== END 2021-10-04 10:16 | disposition home or self-care (01) ==
LOC: DI.N 10:15
PROVIDERS: ATTEND Family Medicine
DX: M16.0 Bilateral primary osteoarthritis of hip (principal); M43.28 Fusion of spine, sacral and sacrococcygeal region

== ENCOUNTER 2022-03-30 10:58 | Outpatient (CLI) | payer MEDICARE, MEDICAID ==
[2022-03-30 13:21] LABS: BASOPHILS # (AUTO) 0.1 10^3/uL (0.0-0.1); EOSINOPHILS # (AUTO) 0.2 10^3/uL (0.0-0.7); EOSINOPHILS % (AUTO) 1.6 %; HGB - HEMOGLOBIN 12.1 g/dL (14.0-18.0); LYMPHOCYTES # (AUTO) 2.5 10^3/uL (1.5-3.5); LYMPHOCYTES % (AUTO) 21.6 %; MEAN CORPUSCULAR HEMOGLOBIN 30.4 pg (27.0-31.0); MEAN CORPUSCULAR HGB CONC 32.7 g/dL (32.0-36.0); MEAN PLATELET VOLUME 8.9 fL (7.4-11.4); MONOCYTES # (AUTO) 0.7 10^3/uL (0.0-1.0); MONOCYTES % (AUTO) 6.3 %; NEUTROPHILS # (AUTO) 7.9 10^3/uL (1.5-6.6); NEUTROPHILS % (AUTO) 68.9 %; PLT - PLATELET COUNT 505 10^3/uL (130-450); RED BLOOD COUNT 3.98 10^6/uL (4.70-6.10); RED CELL DISTRIBUTION WIDTH 13.6 % (12.0-15.0); WHITE BLOOD COUNT 11.5 x10^3/uL (4.8-10.8)
== END 2022-03-30 10:59 | disposition home or self-care (01) ==
LOC: LAB 10:58
PROVIDERS: ATTEND Nurse Practitioner
DX: J18.9 Pneumonia, unspecified organism (principal)
CPT/HCPCS: 36415; 85025; 87275; 87276

== ENCOUNTER 2022-03-30 11:09 | Outpatient (CLI) | payer MEDICARE, MEDICAID ==
--- NOTE | 2022-03-30 18:51 | XRAY Report ---
PROCEDURE: Chest 2 View X-Ray INDICATIONS: PNEUMONIA TECHNIQUE: 2 view(s) of the chest. COMPARISON: 03/19/2022, 09/23/2020, 09/19/2020 FINDINGS: Surgical changes and devices: None. Lungs and pleura: Minimal patchy infiltrate can be seen, which is most prominent within the right up per lobe. The lungs are overall clear with improved compared to the 02/16/2022 examination. Mediastinum: Mediastinal contours are normal. Heart size is normal. Macrocalcification Bones and chest wall: No suspicious bony abnormalities. Age-appropriate degenerative changes are see n. There is accentuated thoracic kyphosis. Soft tissues appear unremarkable. IMPRESSION: Improved bilateral pulmonary infiltrates, with remaining right upper lobe infiltrate. Reviewed by: Angel Davis MD on 03/30/2022 5:49 PM AKDT Approved by: nAgel Davis MD on 03/30/2022 5:49 PM AKDT Station ID: [id number]
== END 2022-03-30 11:10 | disposition home or self-care (01) ==
LOC: DI 11:09
PROVIDERS: ATTEND Nurse Practitioner
DX: J18.9 Pneumonia, unspecified organism (principal)
CPT/HCPCS: 36415; 85025; 87275; 87276

== ENCOUNTER 2022-05-28 08:37 | Outpatient (CLI) | payer MEDICARE, MEDICAID ==
[2022-05-28 08:59] LABS: BASOPHILS % (AUTO) 0.2 %; EOSINOPHILS % (AUTO) 0.1 %; HCT - HEMATOCRIT 43.1 % (42.0-52.0); LYMPHOCYTES # (AUTO) 1.9 10^3/uL (1.5-3.5); LYMPHOCYTES % (AUTO) 14.3 %; MEAN CORPUSCULAR HEMOGLOBIN 29.9 pg (27.0-31.0); MEAN CORPUSCULAR HGB CONC 32.5 g/dL (32.0-36.0); MEAN CORPUSCULAR VOLUME 91.9 fL (80.0-94.0); MEAN PLATELET VOLUME 8.6 fL (7.4-11.4); MONOCYTES # (AUTO) 0.8 10^3/uL (0.0-1.0); MONOCYTES % (AUTO) 5.8 %; NEUTROPHILS # (AUTO) 10.7 10^3/uL (1.5-6.6); NEUTROPHILS % (AUTO) 79.4 %; PLT - PLATELET COUNT 211 10^3/uL (130-450); RED BLOOD COUNT 4.69 10^6/uL (4.70-6.10); RED CELL DISTRIBUTION WIDTH 13.8 % (12.0-15.0); WHITE BLOOD COUNT 13.5 x10^3/uL (4.8-10.8)
[2022-05-28 09:19] LABS: ALBUMIN 3.8 g/dL (3.2-5.5); ALBUMIN/GLOBULIN RATIO 1.1 (1.0-2.2); BILIRUBIN,TOTAL 0.7 mg/dL (0.2-1.0); CALCIUM 9.4 mg/dL (8.5-10.3); CREATININE 1.3 mg/dL (0.6-1.2); CRP - C-REACTIVE PROTEIN 15.2 mg/dL (0-1.0); POTASSIUM 4.5 mmol/L (3.5-5.0); TOTAL PROTEIN 7.2 g/dL (6.7-8.2)
== END 2022-05-28 08:38 | disposition home or self-care (01) ==
LOC: LAB 08:37
PROVIDERS: ATTEND Internal Medicine Rheumatology
DX: M45.9 Ankylosing spondylitis of unspecified sites in spine (principal); J18.9 Pneumonia, unspecified organism; I25.5 Ischemic cardiomyopathy
CPT/HCPCS: 36415; 80053; 85025; 85651; 86140

== ENCOUNTER 2022-06-04 11:49 | Outpatient (CLI) | payer MEDICARE, MEDICAID ==
[2022-06-04 18:56] LABS: MICROALBUM/CREATININE RATIO,UR 145.2 ug/mg (<30.0); MICROALBUMIN,URINE 22.8 mg/dL (0-300.0)
[2022-06-04 19:26] LABS: CHOL/HDL RATIO 4.2 (<5.0); CHOLESTEROL 127 mg/dL; HDL CHOLESTEROL 30 mg/dL; LDL CHOLESTEROL,CALCULATED 76 mg/dL; LDL/HDL RATIO 2.5 (<3.6); TRIGLYCERIDES 107 mg/dL; VLDL CHOLESTEROL 21 mg/dL
[2022-06-04 20:58] LABS: ESTIMATED AVERAGE GLUCOSE 163 mg/dL (70-100); HEMOGLOBIN A1c% 7.3 % (4.27-6.07)
== END 2022-06-04 11:50 | disposition home or self-care (01) ==
LOC: LAB.N 11:49
PROVIDERS: ATTEND Physician Assistant
DX: E11.9 Type 2 diabetes mellitus without complications (principal); Z12.5 Encounter for screening for malignant neoplasm of prostate
CPT/HCPCS: 36415; 80061; 82043; 82570; 83036; G0103; 83721; 84153

== ENCOUNTER 2022-08-20 07:55 | Outpatient (CLI) | payer MEDICARE, MEDICAID ==
[2022-08-20 11:52] LABS: BASOPHILS # (AUTO) 0.1 10^3/uL (0.0-0.1); BASOPHILS % (AUTO) 0.9 %; EOSINOPHILS # (AUTO) 0.2 10^3/uL (0.0-0.7); EOSINOPHILS % (AUTO) 2.4 %; HCT - HEMATOCRIT 45.8 % (42.0-52.0); HGB - HEMOGLOBIN 14.2 g/dL (14.0-18.0); LYMPHOCYTES # (AUTO) 2.1 10^3/uL (1.5-3.5); LYMPHOCYTES % (AUTO) 28.4 %; MEAN CORPUSCULAR VOLUME 93.7 fL (80.0-94.0); MEAN PLATELET VOLUME 8.9 fL (7.4-11.4); MONOCYTES # (AUTO) 0.6 10^3/uL (0.0-1.0); MONOCYTES % (AUTO) 7.3 %; NEUTROPHILS # (AUTO) 4.6 10^3/uL (1.5-6.6); NEUTROPHILS % (AUTO) 60.6 %; PLT - PLATELET COUNT 343 10^3/uL (130-450); RED BLOOD COUNT 4.89 10^6/uL (4.70-6.10); RED CELL DISTRIBUTION WIDTH 14.2 % (12.0-15.0); WHITE BLOOD COUNT 7.5 x10^3/uL (4.8-10.8)
[2022-08-20 11:55] LABS: ALBUMIN 3.4 g/dL (3.2-5.5); ALBUMIN/GLOBULIN RATIO 0.8 (1.0-2.2); BILIRUBIN,TOTAL 0.5 mg/dL (0.2-1.0); CALCIUM 9.5 mg/dL (8.5-10.3); CREATININE 1.3 mg/dL (0.6-1.2); TOTAL PROTEIN 7.5 g/dL (6.7-8.2)
== END 2022-08-20 07:56 | disposition home or self-care (01) ==
LOC: LAB.N 07:55
PROVIDERS: ATTEND Nurse Practitioner
DX: J18.9 Pneumonia, unspecified organism (principal); I25.5 Ischemic cardiomyopathy
CPT/HCPCS: 36415; 80053; 85025

== ENCOUNTER 2022-08-30 06:28 | Day surgery (SDC) | payer MEDICARE, MEDICAID ==
[2022-08-30] MEDS ORDERED: LACTATED RINGERS 1,000 ML IV ONE (06:57)
[2022-08-30] MEDS ORDERED: PROPOFOL 500 MG/50 ML 500 MG/50 ML VIAL ONE (07:11)
[2022-08-30] MEDS ORDERED: LIDOCAINE-MPF 2% 5 ML VIAL ONE (07:13)
--- NOTE | 2022-08-30 07:15 | ANESTHESIA ---
Pre-Anesthesia VS, & Labs - Diagnosis anemia, colitis - Procedure EGD, Colonoascopy Vital Signs: Temp Pulse Resp BP Pulse Ox O2 Flow Rate 36.7 C 88 18 123/71 100 08/30/22 06:58 08/30/22 06:58 08/30/22 06:58 08/30/22 06:58 08/30/22 06:58 Height: 5 ft 4 in Weight (kg): 68.4 kg Body Mass Index: 25.9 BMI Classification: Overweight - NPO Other (prep as directed) - Lab Results Current Lab Results: Laboratory Tests 08/30/22 07:01: POC Whole Bld Glucose 124 H Home Medications and Allergies Home Medications: Ambulatory Orders Acetaminophen [Tylenol Arthritis] 2 tab PO TID 08/26/22 Amlodipine Besylate [Norvasc] 10 mg PO DAILY 08/26/22 Benzonatate [Tessalon] 100 - 200 mg PO TID PRN 08/26/22 Duloxetine HCl [Cymbalta] 60 mg PO DAILY 08/26/22 Fluticasone/Salmeterol [Advair 250-50 Diskus] 1 each IH BID 08/26/22 Lisinopril [Zestril] 2.5 mg PO DAILY 08/26/22 Metoclopramide [Reglan] 10 mg PO TID 08/26/22 Nitroglycerin [Nitrostat] 0.4 mg SL [id number] PRN 08/26/22 Nut.tx.gluc.intoler,Lac-Fr,Soy [Glucerna Therapeutic Nutrition] 237 ml PO QID 08/26/22 Varenicline Tartrate [Chantix] 1 each PO BID 08/26/22 sulfaSALAzine [Azulfidine] 500 mg PO BID 08/26/22 Pregabalin [Lyrica] 150 mg PO TID 09/10/13 Atorvastatin [Lipitor] 20 mg PO QPM 02/23/20 Metoprolol Tartrate 50 mg PO BID 02/24/20 Aspirin EC [Ecotrin] 81 mg PO DAILY 09/20/20 Ipratropium/Albuterol [Combivent Respimat] 1 puffs INH Q6H 09/20/20 Isosorbide Mononitrate [Isosorbide Mononitrate ER] 30 mg PO DAILY 09/20/20 Lidocaine Ointment 5% [Xylocaine Ointment 5%] 1 applic TOP TID PRN 09/20/20 Pantoprazole [Protonix] 40 mg PO BID 09/20/20 metFORMIN [Glucophage] 500 mg PO BID 09/20/20 Ferrous Gluconate 1 tab PO BID 03/13/22 Acetaminophen [Tylenol Arthritis] 2 tab PO TID 08/26/22 Amlodipine Besylate [Norvasc] 10 mg PO DAILY 08/26/22 Benzonatate [Tessalon] 100 - 200 mg PO TID PRN 08/26/22 Duloxetine HCl [Cymbalta] 60 mg PO DAILY 08/26/22 Fluticasone/Salmeterol [Advair 250-50 Diskus] 1 each IH BID 08/26/22 Lisinopril [Zestril] 2.5 mg PO DAILY 08/26/22 Metoclopramide [Reglan] 10 mg PO TID 08/26/22 Nitroglycerin [Nitrostat] 0.4 mg SL [id number] PRN 08/26/22 Nut.tx.gluc.intoler,Lac-Fr,Soy [Glucerna Therapeutic Nutrition] 237 ml PO QID 08/26/22 Varenicline Tartrate [Chantix] 1 each PO BID 08/26/22 sulfaSALAzine [Azulfidine] 500 mg PO BID 08/26/22 Allergies/Adverse Reactions: Allergies Allergy/AdvReac Type Severity Reaction Status Date / Time No Known Drug Allergies Allergy Verified 08/30/22 07:04 Anes History & Medical History - Anesthetic History Anesthesia Complications: reports: No previous complications - Medical History Cardiovascular: reports: Congestive heart failure, Hypertension, High cholesterol, Coronary artery disease, Murmur, Other Pulmonary: reports: COPD, Tuberculosis, Other Gastrointestinal: reports: GERD Urinary: reports: Benign prostate hypertrophy, Retention, Renal insuffiency Neuro: reports: Peripheral neuropathy (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 on EEG 01/09 and severe of BUE on EEG 03/2020) Musculoskeletal: reports: Osteoarthritis, Chronic back pain, Other Endocrine/Autoimmune: reports: Type 2 diabetes Blood Disorders: reports: Anemia Skin: reports: None Smoking Status: Current every day smoker - Surgical History General: reports: Cholecystectomy, Appendectomy, Colonoscopy Eyes Ears Nose Throat (EENT): reports: Tonsil/Adenoidectomy Cardiothoracic: reports: Other Orthopedic: reports: Shoulder arthroplasty, Arthroscopic surgery Exam General: Alert, Oriented x3 Dental: Poor dentition (one bottem left remaining, none loose per patient) Mouth Opening: Greater than 4 Fingerbreadths Neck Mobility: Normal Mallampati classification: II Respiratory: Lungs clear Cardiovascular: Regular rate, Normal S1, Normal S2 Plan Anesthesia Type: Total IV Consent for Procedure(s) Verified and Reviewed: Yes Code Status: Attempt Resuscitation ASA classification: 3-Severe systemic disease Is this case an emergency?: No
--- NOTE | 2022-08-30 07:27 | HISTORY & PHYSICAL EXAMINATION ---
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 on EEG 01/09 and severe of BUE on EEG 03/2020) Endocrine/Autoimmune: reports: Type 2 diabetes GI: reports: GERD : reports: Benign prostate hypertrophy, Retention, Renal insuffiency HEENT: reports: Chronic vision loss Psych: reports: None Musculoskeletal: reports: Osteoarthritis, Chronic back pain, Other Derm: reports: None MRSA Hx?: No - Past Surgical History General: reports: Cholecystectomy, Appendectomy, Colonoscopy Ortho: reports: Shoulder arthroplasty, Arthroscopic surgery Cardiovascular: reports: Other HEENT: reports: Tonsil/Adenoidectomy - Family & Social History Family History Comment/Other: He reports his father had a history of coronary artery disease as well as diabetes. ?CHF of cancer of lung. His mother also had diabetes, memory loss. Both are . 1 brother and 2 sisters. Kidney stones. Living Situation: With family Social History Notes: Moved from [facility] 2012. He lives at home with his brother.His brother has a new girlfriend. She is living with them and she is in the process of finalizing her divorce from her . He has been on disability since the 90s due to his arthritis. He has been smoking a pack a day for about 20 years but has been decreasing the amount he is smoking after he was on Chantix. Down to 1/2 ppd. Reports occasional alcohol use. Single. - Substance History Use: Uses substance without health or social issues: Tobacco - POLST Patient has POLST: No POLST Status: DNR (he doesn't want CPR or intubation) Meds/Allgy - Home Medications Home Medications: Ambulatory Orders Medication Instructions Recorded Confirmed Pregabalin [Lyrica] 150 mg PO TID 09/10/13 08/26/22 Atorvastatin [Lipitor] 20 mg PO QPM 02/23/20 08/26/22 Metoprolol Tartrate 50 mg PO BID 02/24/20 08/26/22 Aspirin EC [Ecotrin] 81 mg PO DAILY 09/20/20 08/26/22 Ipratropium/Albuterol [Combivent 1 puffs INH Q6H 09/20/20 08/26/22 Respimat] Isosorbide Mononitrate [Isosorbide 30 mg PO DAILY 09/20/20 08/26/22 Mononitrate ER] Lidocaine Ointment 5% [Xylocaine 1 applic TOP TID PRN 09/20/20 08/26/22 Ointment 5%] Pantoprazole [Protonix] 40 mg PO BID 09/20/20 08/26/22 metFORMIN [Glucophage] 500 mg PO BID 09/20/20 08/26/22 Ferrous Gluconate 1 tab PO BID 03/13/22 08/26/22 Albuterol Sulf [Ventolin Hfa 1 - 2 puffs INH Q4HR PRN #1 gm 03/19/22 08/26/22 Inhaler] Acetaminophen [Tylenol Arthritis] 2 tab PO TID 08/26/22 08/26/22 Amlodipine Besylate [Norvasc] 10 mg PO DAILY 08/26/22 08/26/22 Benzonatate [Tessalon] 100 - 200 mg PO TID PRN 08/26/22 08/26/22 Duloxetine HCl [Cymbalta] 60 mg PO DAILY 08/26/22 08/26/22 Fluticasone/Salmeterol [Advair 1 each IH BID 08/26/22 08/26/22 250-50 Diskus] Lisinopril [Zestril] 2.5 mg PO DAILY 08/26/22 08/26/22 Metoclopramide [Reglan] 10 mg PO TID 08/26/22 08/26/22 Nitroglycerin [Nitrostat] 0.4 mg SL [id number] PRN 08/26/22 08/26/22 Nut.tx.gluc.intoler,Lac-Fr,Soy 237 ml PO QID 08/26/22 08/26/22 [Glucerna Therapeutic Nutrition] Varenicline Tartrate [Chantix] 1 each PO BID 08/26/22 08/26/22 sulfaSALAzine [Azulfidine] 500 mg PO BID 08/26/22 08/26/22 - Allergies Allergies/Adverse Reactions: Allergies Allergy/AdvReac Type Severity Reaction Status Date / Time No Known Drug Allergies Allergy Verified 08/30/22 07:04 Review of Systems - Other Findings Other Findings: frequent pneumonias. currently well. 10 pt ros as above otherwise unremarkable Exam - Vital Signs Vital Signs: Vital Signs x48h Temp Pulse Resp BP Pulse Ox 08/30/22 06:58 36.7 C 88 18 123/71 100 - Physical Exam General Appearance: positive: No acute distress, Alert Eyes Bilateral: positive: PERRL, EOMI ENT: positive: No signs of dehydration Neck: positive: No JVD, Trachea midline Respiratory: positive: No respiratory distress Cardiovascular: positive: Regular rate & rhythm Abdomen: positive: Non-tender, No distention Neurologic/Psychiatric: positive: Oriented x3 Conclusion/Plan - Problem List (1) Anemia Conclusion/Plan: plan egd and colonoscopy. parq held and consent obtained
[2022-08-30] MEDS ORDERED: LACTATED RINGERS 400 ML IV ONE (08:30)
[2022-08-30 08:54] VITALS: BP 119/70
--- NOTE | 2022-08-30 12:34 | ANESTHESIA POST OP EVALUATION ---
Anesthesia Post Eval - Post Anesthesia Eval Vitals: Last Vital Signs Temp 36.3 C L 08/30/22 08:53 Pulse 91 08/30/22 08:53 Resp 20 08/30/22 08:53 BP 119/70 08/30/22 08:53 Pulse Ox 100 08/30/22 08:53 O2 Flow Rate CV Function Including HR & BP: Stable Pain Control: Satisfactory Nausea & Vomiting: Negative Mental Status: Baseline Respiratory Status: Airway Patent Hydration Status: Satisfactory Anesthesia Complications: None
== END 2022-08-30 06:29 | disposition home or self-care (01) ==
LOC: SDS 06:28
PROVIDERS: ATTEND Surgery
PROC: 0DB58ZX Excision of Esophagus, Via Natural or Artificial Opening Endoscopic, Diagnostic (ICD-10-PCS; 2022-08-30)
PROC: 0DBG8ZX Excision of Left Large Intestine, Via Natural or Artificial Opening Endoscopic, Diagnostic (ICD-10-PCS; 2022-08-30)
PROC: 0DBP8ZX Excision of Rectum, Via Natural or Artificial Opening Endoscopic, Diagnostic (ICD-10-PCS; 2022-08-30)
PROC: 0DB98ZX Excision of Duodenum, Via Natural or Artificial Opening Endoscopic, Diagnostic (ICD-10-PCS; principal; 2022-08-30 07:30)
PROC: 0DB78ZX Excision of Stomach, Pylorus, Via Natural or Artificial Opening Endoscopic, Diagnostic (ICD-10-PCS; 2022-08-30 07:30)
DX: D64.9 Anemia, unspecified (principal); K57.30 Diverticulosis of large intestine without perforation or abscess without bleeding; K44.9 Diaphragmatic hernia without obstruction or gangrene; K25.9 Gastric ulcer, unspecified as acute or chronic, without hemorrhage or perforation; I11.0 Hypertensive heart disease with heart failure; I50.9 Heart failure, unspecified; Z87.19 Personal history of other diseases of the digestive system; E11.42 Type 2 diabetes mellitus with diabetic polyneuropathy; K62.89 Other specified diseases of anus and rectum; J44.9 Chronic obstructive pulmonary disease, unspecified; F17.210 Nicotine dependence, cigarettes, uncomplicated; Z79.84 Long term (current) use of oral hypoglycemic drugs
CPT/HCPCS: 43239; 45380; J7120

== ENCOUNTER 2022-10-14 08:37 | Outpatient (CLI) | payer MEDICARE, MEDICAID ==
--- NOTE | 2022-10-14 09:53 | Ultrasound Report ---
PROCEDURE: Duplex Upr Ext Arterial Bilat INDICATIONS: RIGHT ARM PAIN TECHNIQUE: Color and pulse Doppler interrogation was performed of both upper extremity arterial systems, with im age documentation. COMPARISON: None. FINDINGS: Right upper extremity: Subclavian artery (mid): 79 cm/sec, with triphasic flow. Axillary artery: 71 cm/sec, with triphasic flow. Brachial artery (mid): 71 cm/sec, with triphasic flow. Radial artery (proximal): 64 cm/sec, with triphasic flow. Radial artery (mid): 66 cm/sec, with triphasic flow. Radial artery (distal): 51 cm/sec, with triphasic flow. Ulnar artery (proximal): 52 cm/sec, with triphasic flow. Ulnar artery (mid): 71 cm/sec. with triphasic flow. Ulnar artery (distal): 59 cm/sec, with triphasic flow. Valdez-scale imaging description: Widely patent vessels Left upper extremity: Subclavian artery (mid): 57 cm/sec, with triphasic flow. Axillary artery: 54 cm/sec, with triphasic flow. Brachial artery (mid): 90 cm/sec, with triphasic flow. Radial artery (proximal): 58 cm/sec, with triphasic flow. Radial artery (mid): 71 cm/sec, with triphasic flow. Radial artery (distal): 42 cm/sec, with triphasic flow. Ulnar artery (proximal): 57 cm/sec, with triphasic flow. Ulnar artery (mid): 59 cm/sec. with triphasic flow. Ulnar artery (distal): 54 cm/sec, with triphasic flow. Valdez-scale imaging description: Widely patent vessels IMPRESSION: Unremarkable bilateral upper extremity duplex arterial ultrasound. Widely patent vessels with normal waveforms. Reviewed by: August Acevedo MD on 10/14/2022 9:51 AM PDT Approved by: August Acevedo MD on 10/14/2022 9:51 AM PDT Station ID: [id number]
== END 2022-10-14 08:38 | disposition home or self-care (01) ==
LOC: DI 08:37
PROVIDERS: ATTEND Physician Assistant
DX: M79.601 Pain in right arm (principal)
CPT/HCPCS: 93930

== ENCOUNTER 2023-02-26 08:49 | Outpatient (CLI) | payer MEDICARE, MEDICAID ==
--- NOTE | 2023-02-26 11:37 | XRAY Report ---
PROCEDURE: Cervical Spine Comp w/Flex/Ext INDICATIONS: CERVICAL RADICULOPATHY,RIGHT TECHNIQUE: 7 views of the cervical spine were acquired. COMPARISON: 07/04/2020 FINDINGS: Bones: Complete opacification of the anterior longitudinal ligament as well as ankylosis of the facet joints throughout the exam, consistent with ankylosing spondylitis. No evidence of fracture. Flexion and extension images show significant limitation of range of motion, but no evidence of instability. Oblique images show no significant foraminal stenosis. Soft tissues: Prevertebral soft tissues are normal in thickness. Biapical pulmonary scarring is gre ater on the right IMPRESSION: Stable ankylosing spondylitis without evidence of segmental instability Reviewed by: Teja High MD on 02/26/2023 10:35 AM CATALINO Approved by: Teja High MD on 02/26/2023 10:35 AM CATALINO Station ID: [id number]
== END 2023-02-26 08:50 | disposition home or self-care (01) ==
LOC: DI 08:49
PROVIDERS: ATTEND Physician Assistant
DX: M54.12 Radiculopathy, cervical region (principal); M45.2 Ankylosing spondylitis of cervical region

== ENCOUNTER 2023-03-05 13:53 | Outpatient (CLI) | payer MEDICARE, MEDICAID ==
--- NOTE | 2023-03-05 17:30 | MRI Report ---
PROCEDURE: CERVICAL SPINE WO INDICATIONS: CERVICAL RADICULOPATHY TECHNIQUE: Noncontrast sagittal T1 spin echo and T2 fast spin echo, sagittal STIR, foraminal oblique sagittal T2 fast spin echo, and axial gradient echo or T2 fast spin echo through the cervical spine. COMPARISON: Correlation is made with plain films, 02/26/2023 FINDINGS: Image quality: Motion artifact is noted. Alignment and Curvature: There is overall straightening of the normal cervical lordosis. No signifi cant AP alignment abnormality can be seen. Bone Marrow: Marrow demonstrates normal overall signal. Spinal Cord: Visualized spinal cord has normal size and signal. No cerebellar tonsillar herniation. Paraspinous Soft Tissues: No paravertebral masses. Prevertebral soft tissues are normal in thicknes s. C2-C3: Moderate loss of disc height and signal are seen. Mild disc osteophyte complex is seen. No s ignificant neural foraminal or central canal narrowing can be seen. C3-C4: Mild loss of disc height and disc signal are seen. Bridging anterior osteophytes are seen. M oderate disc osteophyte complex is seen. Uncovertebral joint hypertrophy is seen at this level. Mild to moderate facet hypertrophy is seen. Mild to moderate bilateral neuroforaminal narrowing is seen. Minimal central canal narrowing is seen. C4-C5: Bridging anterior osteophytes can be seen at this level. Mild loss of disc height is seen. M oderate disc osteophyte complex is seen. At least moderate facet hypertrophy is seen. Mild bilateral neural foraminal narrowing is seen. Mild central canal narrowing is seen. C5-C6: The disc height is relatively well preserved. Moderate disc osteophyte complex is seen. Mod erate facet hypertrophy is seen. There is mild right-sided and no significant left-sided neuroforamin al narrowing. Minimal central canal narrowing is seen. C6-C7: The disc height is relatively well preserved. Mild to moderate disc osteophyte complex is see n, which is slightly eccentric to the left. No significant neural foraminal or central canal narrowin g can be seen. C7-T1: Mild loss of disc height and disc signal are seen. Mild to moderate disc osteophyte complex i s seen. No significant neural foraminal or central canal narrowing can be seen. IMPRESSION: Multiple levels of cervical spine degenerative change can be seen. The bony bridging is better demonstrated by prior plain film. Reviewed by: Angel Davis MD on 03/05/2023 4:29 PM AKZARINA Approved by: Angel Davis MD on 03/05/2023 4:29 PM CATALINO Station ID: [id number]
== END 2023-03-05 13:54 | disposition home or self-care (01) ==
LOC: DI 13:53
PROVIDERS: ATTEND Physician Assistant
DX: M47.22 Other spondylosis with radiculopathy, cervical region (principal); M50.11 Cervical disc disorder with radiculopathy, high cervical region; M48.02 Spinal stenosis, cervical region; M25.78 Osteophyte, vertebrae

== ENCOUNTER 2023-06-27 14:55 | Outpatient (CLI) | payer MEDICARE, MEDICAID ==
--- NOTE | 2023-06-27 21:40 | Ultrasound Report ---
PROCEDURE: Duplex Lwr Ext Arterial Bilat INDICATIONS: BILATERAL CLAUDICATION TECHNIQUE: Color and pulse Doppler interrogation was performed of both lower extremity arterial systems, with im age documentation. COMPARISON: None FINDINGS: Right lower extremity: Common femoral artery: 111 cm/sec, with triphasic flow. Deep femoral artery: 51 cm/sec, with triphasic flow. Proximal superficial femoral artery: 73 cm/sec, with triphasic flow. Mid superficial femoral artery: 101 cm/sec, with triphasic flow. Distal superficial femoral artery: 53 cm/sec, with triphasic flow. Popliteal artery: 51 cm/sec, with triphasic flow. Posterior tibial artery: 20 cm/sec, with triphasic flow. Anterior tibial artery/dorsalis pedis: 29/33 cm/sec, with biphasic flow. Valdez-scale imaging description: Mild scattered atherosclerotic plaque Left lower extremity: Common femoral artery: 135 cm/sec, with triphasic flow. Deep femoral artery: 54 cm/sec, with triphasic flow. Proximal superficial femoral artery: 67 cm/sec, with triphasic flow. Mid superficial femoral artery: 82 cm/sec, with triphasic flow. Distal superficial femoral artery: 70 cm/sec, with biphasic flow. Popliteal artery: 57 cm/sec, with triphasic flow. Posterior tibial artery: 34 cm/sec, with biphasic flow. Anterior tibial artery/dorsalis pedis: 36/36 cm/sec, with biphasic flow. Valdez-scale imaging description: Mild scattered atherosclerotic plaque IMPRESSION: Multiphasic waveforms of the bilateral lower extremity arterial vasculature with no velocity shift to suggest a hemodynamically significant stenosis. Reviewed by: Francisco Haines MD on 06/27/2023 9:39 PM PST Approved by: Francisco Haines MD on 06/27/2023 9:39 PM PST Station ID: [id number]
== END 2023-06-27 14:56 | disposition home or self-care (01) ==
LOC: DI 14:55
PROVIDERS: ATTEND Physician Assistant
DX: I73.9 Peripheral vascular disease, unspecified (principal)
CPT/HCPCS: 93925

== ENCOUNTER 2023-07-08 12:08 | Outpatient (CLI) | payer MEDICARE, MEDICAID | END 2023-07-08 23:59 | disposition critical access hospital (66) | LOC: EMS 12:08 | DX: R52 Pain, unspecified (principal); R53.83 Other fatigue; R50.9 Fever, unspecified; R00.0 Tachycardia, unspecified | CPT/HCPCS: A0425; A0427 ==

== ENCOUNTER 2023-07-08 12:37 | Emergency (ER) | payer MEDICARE, MEDICAID ==
--- NOTE | 2023-07-08 13:17 | ED Physician Documentation ---
History of Present Illness - Stated complaint Stated Complaint: FLU SX - Chief complaint Chief Complaint: Resp - Additonal information Additional information: This is a 67-year-old male with a past medical history of CHF, WI, hypertension, COPD. It sounds as though he is on intermittent oxygen at home, he states he does have it though only wears it sometimes. He activated EMS today because he has not felt well for weeks though worse in the last 3 to 4 days with increasing cough and increasing shortness of breath. He has also had bodyaches and Increasing neuropathic pain. He is not sure if he had a fever. He has not had any chest pain, No abdominal pain, no nausea, vomiting, diarrhea. He states he is voiding per normal. Review of Systems Constitutional: reports: Fever, Chills, Myalgias Eyes: reports: Reviewed and negative Ears: reports: Reviewed and negative Nose: reports: Reviewed and negative Throat: reports: Reviewed and negative Cardiac: reports: Reviewed and negative Respiratory: reports: Dyspnea, Cough, Wheezing. denies: Hemoptysis GI: reports: Reviewed and negative : reports: Reviewed and negative Skin: reports: Reviewed and negative Musculoskeletal: reports: Reviewed and negative Neurologic: reports: Generalized weakness Psychiatric: reports: Reviewed and negative PD PAST MEDICAL HISTORY - Past Medical History Past Medical History: Yes Cardiovascular: Congestive heart failure, Hypertension, High cholesterol, Coronary artery disease, WI, Murmur, Other Respiratory: COPD, Tuberculosis, Other Neuro: Peripheral neuropathy Endocrine/Autoimmune: Type 2 diabetes GI: GERD : Benign prostate hypertrophy, Retention, Renal insuffiency HEENT: Chronic vision loss Psych: None Musculoskeletal: Osteoarthritis, Chronic back pain, Other Derm: None - Past Surgical History Past Surgical History: Yes General: Cholecystectomy, Appendectomy, Colonoscopy Ortho: Shoulder arthroplasty, Arthroscopic surgery Cardiovascular: Other HEENT: Tonsil/Adenoidectomy - Present Medications Home Medications: Ambulatory Orders Medication Instructions Recorded Confirmed Pregabalin [Lyrica] 150 mg PO TID 09/10/13 08/26/22 Atorvastatin [Lipitor] 20 mg PO QPM 02/23/20 08/26/22 Metoprolol Tartrate 50 mg PO BID 02/24/20 08/26/22 Aspirin EC [Ecotrin] 81 mg PO DAILY 09/20/20 08/26/22 Ipratropium/Albuterol [Combivent 1 puffs INH Q6H 09/20/20 08/26/22 Respimat] Isosorbide Mononitrate [Isosorbide 30 mg PO DAILY 09/20/20 08/26/22 Mononitrate ER] Lidocaine Ointment 5% [Xylocaine 1 applic TOP TID PRN 09/20/20 08/26/22 Ointment 5%] Pantoprazole [Protonix] 40 mg PO BID 09/20/20 08/26/22 metFORMIN [Glucophage] 500 mg PO BID 09/20/20 08/26/22 Ferrous Gluconate 1 tab PO BID 03/13/22 08/26/22 Albuterol Sulf [Ventolin Hfa 1 - 2 puffs INH Q4HR PRN #1 gm 03/19/22 08/26/22 Inhaler] Acetaminophen [Tylenol Arthritis] 2 tab PO TID 08/26/22 08/26/22 Amlodipine Besylate [Norvasc] 10 mg PO DAILY 08/26/22 08/26/22 Benzonatate [Tessalon] 100 - 200 mg PO TID PRN 08/26/22 08/26/22 Duloxetine HCl [Cymbalta] 60 mg PO DAILY 08/26/22 08/26/22 Fluticasone/Salmeterol [Advair 1 each IH BID 08/26/22 08/26/22 250-50 Diskus] Lisinopril [Zestril] 2.5 mg PO DAILY 08/26/22 08/26/22 Metoclopramide [Reglan] 10 mg PO TID 08/26/22 08/26/22 Nitroglycerin [Nitrostat] 0.4 mg SL [id number] PRN 08/26/22 08/26/22 Nut.tx.gluc.intoler,Lac-Fr,Soy 237 ml PO QID 08/26/22 08/26/22 [Glucerna Therapeutic Nutrition] Varenicline Tartrate [Chantix] 1 each PO BID 08/26/22 08/26/22 sulfaSALAzine [Azulfidine] 500 mg PO BID 08/26/22 08/26/22 Doxycycline [Vibramycin] 100 mg PO BID #14 tablet 07/08/23 predniSONE [Deltasone] 40 mg PO DAILY 5 Days #10 tablet 07/08/23 - Allergies Allergies/Adverse Reactions: Allergies Allergy/AdvReac Type Severity Reaction Status Date / Time No Known Drug Allergies Allergy Verified 07/08/23 12:53 - Social History Does the pt smoke?: Yes Smoking Status: Current every day smoker Does the pt drink ETOH?: No Does the pt have substance abuse?: No - Immunizations Immunizations are current?: Yes - POLST Patient has POLST: No POLST Status: DNR (he doesn't want CPR or intubation) PD ED PE NORMAL - Vitals Vital signs reviewed: Yes - General General: Alert and oriented X 3, No acute distress, Other (appears chronically ill but not toxic. ) - HEENT HEENT: Atraumatic, Moist mucous membranes, Pharynx benign - Neck Neck: Supple, no meningeal sign, No adenopathy, No JVD - Cardiac Cardiac: No murmur, No gallop, Strong equal pulses, Other (tachycardic) - Respiratory Respiratory: No respiratory distress, Other (scattered rhonchi and few exp wheeze, diminished bilat) - Abdomen Abdomen: Normal bowel sounds, Soft, Non tender, Non distended - Derm Derm: Normal color, Warm and dry, No rash - Extremities Extremities: No deformity, No tenderness to palpate, Normal ROM s pain, No edema - Neuro Neuro: Alert and oriented X 3 Eye Opening: Spontaneous Motor: Obeys Commands Verbal: Oriented GCS Score: 15 - Psych Psych: Normal mood, Normal affect Results - Vitals Vitals: Vital Signs - 24 hr 07/08/23 07/08/23 07/08/23 12:38 12:56 13:38 Temperature 37.0 C Heart Rate 119 H 118 H 115 H Respiratory 26 H 19 19 Rate Blood Pressure 109/82 H 103/76 O2 Saturation 90 L 99 97 If not protocol 3 3 : Oxygen Flow, liters/minute 07/08/23 07/08/23 07/08/23 14:02 14:57 15:26 Temperature Heart Rate 114 H 102 H 98 Respiratory 22 20 22 Rate Blood Pressure 103/76 O2 Saturation 100 99 If not protocol 3 3 : Oxygen Flow, liters/minute 07/08/23 07/08/23 07/08/23 16:49 18:26 18:34 Temperature Heart Rate 71 71 Respiratory 19 17 18 Rate Blood Pressure 98/68 111/71 O2 Saturation 97 97 If not protocol 3 3 3 : Oxygen Flow, liters/minute Oxygen O2 Source Nasal cannula Oxygen Flow Rate 3 - EKG (time done) No standard instances EKG releavant findings:: EKG personally interpreted by author of this note. Relevant findings are: - Labs Labs: Laboratory Tests 07/08/23 07/08/23 07/08/23 12:58 13:33 13:33 WBC 10.2 RBC 4.85 Hgb 14.8 Hct 45.7 MCV 94.2 H MCH 30.5 MCHC 32.4 RDW 13.7 Plt Count 214 MPV 8.7 Neut # (Auto) 8.8 H Lymph # (Auto) 0.5 L Brantley # (Auto) 0.8 Eos # (Auto) 0.0 Baso # (Auto) 0.0 Absolute Nucleated RBC 0.00 Nucleated RBC % 0.0 Sodium 140 Potassium 5.2 H Chloride 106 Carbon Dioxide 24 Anion Gap 10.0 BUN 32 H Creatinine 1.6 H Estimated GFR (MDRD) 44 L Glucose 159 H Lactic Acid Calcium 9.7 Total Bilirubin 0.6 AST 74 H ALT 52 Alkaline Phosphatase 85 Troponin I High Sens Total Protein 7.6 Albumin 4.2 Globulin 3.4 Albumin/Globulin Ratio 1.2 Nasal Adenovirus (PCR) NOT DETECTED Nasal B. parapertussis DNA (PCR) NOT DETECTED Nasal Coronavir 229E PCR NOT DETECTED Nasal Coronavir HKU1 PCR NOT DETECTED Nasal Coronavir NL63 PCR NOT DETECTED Nasal Coronavir OC43 PCR NOT DETECTED Nasal Enterovir/Rhinovir PCR NOT DETECTED Nasal Influenza B PCR NOT DETECTED Nasal Influenza A PCR NOT DETECTED Nasal Parainfluen 1 PCR NOT DETECTED Nasal Parainfluen 2 PCR NOT DETECTED Nasal Parainfluen 3 PCR NOT DETECTED Nasal Parainfluen 4 PCR NOT DETECTED Nasal RSV (PCR) NOT DETECTED Nasal B.pertussis DNA PCR NOT DETECTED Nasal C.pneumoniae (PCR) NOT DETECTED Moody Human Metapneumo PCR NOT DETECTED Nasal M.pneumoniae (PCR) NOT DETECTED Nasal SARS-CoV-2 (PCR) NOT DETECTED 07/08/23 07/08/23 13:33 13:33 WBC RBC Hgb Hct MCV MCH MCHC RDW Plt Count MPV Neut # (Auto) Lymph # (Auto) Brantley # (Auto) Eos # (Auto) Baso # (Auto) Absolute Nucleated RBC Nucleated RBC % Sodium Potassium Chloride Carbon Dioxide Anion Gap BUN Creatinine Estimated GFR (MDRD) Glucose Lactic Acid 1.5 Calcium Total Bilirubin AST ALT Alkaline Phosphatase Troponin I High Sens 13.1 Total Protein Albumin Globulin Albumin/Globulin Ratio Nasal Adenovirus (PCR) Nasal B. parapertussis DNA (PCR) Nasal Coronavir 229E PCR Nasal Coronavir HKU1 PCR Nasal Coronavir NL63 PCR Nasal Coronavir OC43 PCR Nasal Enterovir/Rhinovir PCR Nasal Influenza B PCR Nasal Influenza A PCR Nasal Parainfluen 1 PCR Nasal Parainfluen 2 PCR Nasal Parainfluen 3 PCR Nasal Parainfluen 4 PCR Nasal RSV (PCR) Nasal B.pertussis DNA PCR Nasal C.pneumoniae (PCR) Moody Human Metapneumo PCR Nasal M.pneumoniae (PCR) Nasal SARS-CoV-2 (PCR) - Rads (name of study) No standard instances Relevant Findings:: Final report received PD Medical Decision Making - ED course Complexity details: reviewed old records, reviewed results, re-evaluated patient, considered differential, d/w patient ED course: 67-year-old male with COPD presented with several days of increasing shortness of breath as described in HPI. Patient was apparently 85% on room air at home though does have oxygen that he can use intermittently at home. He was placed on oxygen and brought to the ER by EMS. On arrival here, the patient is tachycardic mildly hypoxic but otherwise in no acute distress, he has some expiratory wheezes and rhonchi and there is concern for COPD exacerbation versus COVID or flu versus pneumonia versus CHF, ACS, PE, among other differentials. EKG showed st, possible minimal nahun that I reviewed w/ ED physician. Given the tachycardia, I did obtain a sepsis workup however his labs are largely reassuring, he does not have a leukocytosis, CBC is stable, CMP similar to prior though slightly worse CKD, high-sensitivity troponin is negative. His viral panel is negative. He is given a DuoNeb and a dose of Solu-Medrol and received about 500 mL of fluid from EMS. His heart rate improved and he was titrated off oxygen to room air. He was actually on only about 1 L of oxygen for the majority of his stay here and then I turned it off and continue to monitor him and he remained stable. Patient was given some pain medication for his chronic neuropathic pain and felt back to baseline. I did obtain a CTA given his tachycardia and hypoxia and wanted to rule out PE. CT shows known emphysema, no PE or acute infiltrates. I am going to treat him for a COPD exacerbation given sob w/ increased cough and he will receive doxycyclinex 7 days and prednisone x 5 days, he can continue inhalers at home as needed and recommend follow-up with PCP within the next week. Return precautions reviewed. Patient discharged home in stable condition. Departure - Departure Disposition: 01 Home, Self Care Clinical Impression: Acute kidney injury superimposed on CKD, COPD with exacerbation Condition: Good Instructions: ED COPD Flare Prescriptions: predniSONE [Deltasone] 40 mg PO DAILY 5 Days #10 tablet Doxycycline [Vibramycin] 100 mg PO BID #14 tablet Comments: Fei, your exam today was suggestive of a COPD exacerbation. I am giving you antibiotics and steroids for the next week as scheduled. Please continue your inhalers at home. Please try to quit smoking. I would like you to see your primary doctor in the next week or so. Please follow-up in the ER as needed if worsening symptoms. Medications sent to [facility] Forms: PCP List Discharge Date/Time: 07/08/23 19:21
[2023-07-08 13:45] LABS: BASOPHILS % (AUTO) 0.4 %; EOSINOPHILS % (AUTO) 0.1 %; HCT - HEMATOCRIT 45.7 % (42.0-52.0); HGB - HEMOGLOBIN 14.8 g/dL (14.0-18.0); LYMPHOCYTES # (AUTO) 0.5 10^3/uL (1.5-3.5); LYMPHOCYTES % (AUTO) 4.7 %; MEAN CORPUSCULAR HEMOGLOBIN 30.5 pg (27.0-31.0); MEAN CORPUSCULAR HGB CONC 32.4 g/dL (32.0-36.0); MEAN CORPUSCULAR VOLUME 94.2 fL (80.0-94.0); MEAN PLATELET VOLUME 8.7 fL (7.4-11.4); MONOCYTES # (AUTO) 0.8 10^3/uL (0.0-1.0); MONOCYTES % (AUTO) 8.2 %; NEUTROPHILS # (AUTO) 8.8 10^3/uL (1.5-6.6); NEUTROPHILS % (AUTO) 86.1 %; PLT - PLATELET COUNT 214 10^3/uL (130-450); RED BLOOD COUNT 4.85 10^6/uL (4.70-6.10); RED CELL DISTRIBUTION WIDTH 13.7 % (12.0-15.0); WHITE BLOOD COUNT 10.2 x10^3/uL (4.8-10.8)
[2023-07-08 14:02] LABS: ALBUMIN 4.2 g/dL (3.2-5.5); ALBUMIN/GLOBULIN RATIO 1.2 (1.0-2.2); BILIRUBIN,TOTAL 0.6 mg/dL (0.2-1.0); CALCIUM 9.7 mg/dL (8.5-10.3); CREATININE 1.6 mg/dL (0.6-1.3); POTASSIUM 5.2 mmol/L (3.5-4.5); TOTAL PROTEIN 7.6 g/dL (6.4-8.9)
[2023-07-08 14:04] LABS: B. PARAPERTUSSIS- RESP PCR PAN NOT DETECTED; B. PERTUSSIS- RESP PCR PANEL NOT DETECTED; C. PNEUMONIAE- RESP PCR PANEL NOT DETECTED; CORONAVIRUS 229E-RESP PCR NOT DETECTED; CORONAVIRUS HKU1-RESP PCR NOT DETECTED; CORONAVIRUS NL63-RESP PCR NOT DETECTED; CORONAVIRUS OC43-RESP PCR NOT DETECTED; HUMAN METAPNEUMOVIRUS NOT DETECTED; INFLUENZA A- RESP PCR PANEL NOT DETECTED; INFLUENZA B - RESP PCR PANEL NOT DETECTED; M. PNEUMONIAE- RESP PCR PANEL NOT DETECTED; PARAINFLUENZA VIRUS 1 NOT DETECTED; PARAINFLUENZA VIRUS 2 NOT DETECTED; PARAINFLUENZA VIRUS 3 NOT DETECTED; PARAINFLUENZA VIRUS 4 NOT DETECTED; RHINOVIRUS/ENTEROVIRUS NOT DETECTED; RSV- RESP PCR PANEL NOT DETECTED; SARS-CoV-2 -RESP PCR PANEL NOT DETECTED
--- NOTE | 2023-07-08 14:53 | XRAY Report ---
PROCEDURE: Chest 1V INDICATIONS: 03/30/2022 TECHNIQUE: One view of the chest was acquired. COMPARISON: Chest 2 views dated 02/23/2020, chest 1 view dated 03/19/2022, chest 1 view dated , CT chest dated 09/19/2020, CT chest without contrast dated 07/04/2020 FINDINGS: Surgical changes and devices: None. Lungs and pleura: There is chronic asymmetrical right apical pleural parenchymal scarring and thicke bella with cephalad retraction of the right hilum suggesting chronic granulomatous change. There is bi lateral chronic interstitial pulmonary fibrosis in the lung bases. No acute airspace consolidation. Mediastinum: Mediastinal contours appear normal. Heart size is normal. Bones and chest wall: No suspicious bony lesions. Overlying soft tissues appear unremarkable. IMPRESSION: 1. Asymmetric pleural-parenchymal density in the right apex likely represents sequelae of chronic gra nulomatous disease. 2. Stable findings of chronic interstitial pulmonary fibrosis. 3. No acute pulmonary infiltrates noted. Reviewed by: August Acevedo MD on 07/08/2023 2:52 PM PST Approved by: August Acevedo MD on 07/08/2023 2:52 PM PST Station ID: [id number]
[2023-07-08] MEDS ORDERED: IPRATROPIUM/ALBUTEROL 3 ML NEB INH STA (15:11)
[2023-07-08] MEDS ORDERED: methylPREDNISolone SUCCINATE 125 MG/2 ML VIAL IVP STA (15:58)
[2023-07-08] MEDS ORDERED: HYDROmorphone 1 MG/ML CARPUJECT IVP STA (16:27)
[2023-07-08 16:53] VITALS: O2SAT 97
[2023-07-08] MEDS ORDERED: DOXYCYCLINE 100 MG TABLET PO STA (18:04)
[2023-07-08 18:42] VITALS: BP 111/71
[2023-07-08] MEDS ORDERED: iohexoL-300 100 ML VIAL IVP ONE (18:57)
--- NOTE | 2023-07-08 19:42 | CT Report ---
PROCEDURE: Angio Chest INDICATIONS: hypoxia, sob, eval for PE CONTRAST: Omni 300, 100mls TECHNIQUE: After the administration of intravenous contrast, 2 mm axial images were acquired from the pulmonary apices to the posterior costophrenic angles during the arterial phase. In addition, 1 mm lung kernel and 5 mm soft tissue kernel reconstructions were performed. 3-dimensional coronal oblique maximum int ensity projection (MIP) reformats, 8 mm axial MIP, and 5 mm coronal and sagittal MPR reformats were t hen performed through the thorax. For radiation dose reduction, the following was used: automated exp osure control, adjustment of mA and/or kV according to patient size. COMPARISON: None. FINDINGS: Image quality: Excellent. Large vessels: No filling defects within the opacified pulmonary arteries, accounting for motion and contrast timing. No evidence of acute aortic syndrome or aortic aneurysm. Lungs and pleura: Moderate-severe centrilobular pulmonary emphysema redemonstrated. Concurrent dense consolidation over the right upper lobe and anterior right middle lobe has decreased in conspicuity a nd size. Compared to the prior study, no new focal airspace disease identified. No pneumothorax or pl eural effusion. Stable bronchiectasis of the right upper lobe and right middle lobe. No pulmonary fib rotic changes identified. Stable small subpleural nodular densities of the bilateral lower lobes. No septal thickening or nodularity. Mediastinum: Heart size is normal. Coronary artery atherosclerosis. No pericardial effusion. No large vessel abnormality. No mediastinal adenopathy by size criteria. Chest wall and lower neck: Thyroid is unremarkable. No axillary or supraclavicular adenopathy by size . Bones: No aggressive osseous abnormality. Upper Abdomen: Unremarkable. Status post cholecystectomy. IMPRESSION: No pulmonary embolus. No acute right-sided heart strain.. Stable appearance of moderate-severe centrilobular pulmonary emphysema with interval decrease in size and conspicuity of right upper lobe, right middle lobe consolidations and near complete resolution o f previously described patchy right lower lobe opacities. Reviewed by: Alex Bryson MD on 07/08/2023 7:40 PM PST Approved by: Alex Bryson MD on 07/08/2023 7:40 PM PST Station ID: [id number]
--- NOTE | 2023-07-08 22:35 | ED Physician Documentation ---
ED Addendum - Addendum Addendum: 07/08/23 22:35 I was notified by nursing staff that the patient's preliminary blood culture result did come back positive for gram-negative bacilli in the blood. I did inform nursing staff that we will need to call this patient to come back to the emergency department for IV antibiotics and plan admission. The patient is being contacted at this time.
--- NOTE | 2023-07-10 01:54 | ED Physician Documentation ---
ED Addendum - Addendum Addendum: 07/10/23 01:52 RN Breanna brought me culture results for this patient. Both blood cultures grew out gram negative rods concerning for e coli bacteremia. advised clinical staff educator to call back patient to return to ED for IV antibiotics and admission.
--- NOTE | 2023-07-11 13:13 | ED Physician Documentation ---
ED Addendum - Addendum Addendum: 07/11/23 Blood culture sensitivities have resulted. On review of the patient's medical records he has been notified and was told to go to the emergency department yesterday. It appears that he was planning on going to the [facility] emergency department I did call and left a voice message on his brothers number (no answer from patient on his number) to ensure that he had gone to [facility] for further treatment of his bacteremia.
== END 2023-07-08 19:21 | disposition home or self-care (01) ==
LOC: ED 12:37
DX: J44.1 Chronic obstructive pulmonary disease with (acute) exacerbation (principal); J43.2 Centrilobular emphysema; J47.9 Bronchiectasis, uncomplicated; N18.9 Chronic kidney disease, unspecified; N17.9 Acute kidney failure, unspecified; E11.42 Type 2 diabetes mellitus with diabetic polyneuropathy; Z79.84 Long term (current) use of oral hypoglycemic drugs; E11.22 Type 2 diabetes mellitus with diabetic chronic kidney disease; R09.02 Hypoxemia; R00.0 Tachycardia, unspecified; F17.200 Nicotine dependence, unspecified, uncomplicated; Z66 Do not resuscitate
CPT/HCPCS: 36415; 71045; 71275; 80053; 83605; 84484; 85025; 87040; 87150; 87181; 87633; 93005; 94640; 96374; 96375; 99284; 99285; A9270; J1170; Q9967

== ENCOUNTER 2023-07-18 07:36 | Outpatient (CLI) | payer MEDICARE, MEDICAID ==
[2023-07-18 07:47] LABS: BASOPHILS # (AUTO) 0.1 10^3/uL (0.0-0.1); BASOPHILS % (AUTO) 0.4 %; EOSINOPHILS # (AUTO) 0.2 10^3/uL (0.0-0.7); EOSINOPHILS % (AUTO) 1.5 %; HCT - HEMATOCRIT 42.8 % (42.0-52.0); HGB - HEMOGLOBIN 13.7 g/dL (14.0-18.0); LYMPHOCYTES # (AUTO) 2.4 10^3/uL (1.5-3.5); LYMPHOCYTES % (AUTO) 20.6 %; MEAN CORPUSCULAR HEMOGLOBIN 30.9 pg (27.0-31.0); MEAN CORPUSCULAR VOLUME 96.6 fL (80.0-94.0); MEAN PLATELET VOLUME 8.6 fL (7.4-11.4); MONOCYTES # (AUTO) 0.9 10^3/uL (0.0-1.0); MONOCYTES % (AUTO) 7.7 %; NEUTROPHILS # (AUTO) 7.9 10^3/uL (1.5-6.6); PLT - PLATELET COUNT 305 10^3/uL (130-450); RED BLOOD COUNT 4.43 10^6/uL (4.70-6.10); RED CELL DISTRIBUTION WIDTH 13.9 % (12.0-15.0); WHITE BLOOD COUNT 11.6 x10^3/uL (4.8-10.8)
[2023-07-18 08:06] LABS: ALBUMIN 3.6 g/dL (3.2-5.5); ALBUMIN/GLOBULIN RATIO 1.3 (1.0-2.2); BILIRUBIN,TOTAL 0.2 mg/dL (0.2-1.0); CREATININE 1.5 mg/dL (0.6-1.3); POTASSIUM 5.2 mmol/L (3.5-4.5); TOTAL PROTEIN 6.3 g/dL (6.4-8.9)
[2023-07-18 12:21] LABS: ESTIMATED AVERAGE GLUCOSE 166 mg/dL (70-100); HEMOGLOBIN A1c% 7.4 % (4.27-6.07)
== END 2023-07-18 07:37 | disposition home or self-care (01) ==
LOC: LAB 07:36
PROVIDERS: ATTEND Physician Assistant
DX: E11.22 Type 2 diabetes mellitus with diabetic chronic kidney disease (principal); N17.9 Acute kidney failure, unspecified; N18.9 Chronic kidney disease, unspecified; R78.81 Bacteremia
CPT/HCPCS: 36415; 80053; 83036; 85025

== ENCOUNTER 2023-09-16 10:19 | Outpatient (CLI) | payer MEDICARE, MEDICAID ==
--- NOTE | 2023-09-16 17:58 | MRI Report ---
PROCEDURE: Cervical Spine WO INDICATIONS: CERVICAL STENOSIS TECHNIQUE: Noncontrast sagittal T1 spin echo and T2 fast spin echo, sagittal STIR, foraminal oblique sagittal T2 fast spin echo, and axial gradient echo or T2 fast spin echo through the cervical spine. COMPARISON: 03/05/2023. Cervical spine radiographs dated 02/26/2023 FINDINGS: Image quality: Diagnostic. Alignment and Curvature: There is stable bony alignment with mild straightening of normal cervical l ordosis. Bone Marrow: Marrow demonstrates normal overall signal. There appears to be ossification of the ant erior longitudinal ligament as well as partial osseous fusion of the cervical spine similar to findin gs seen on comparison radiographs. Spinal Cord: Visualized spinal cord has normal size and signal. No cerebellar tonsillar herniation. Paraspinous Soft Tissues: No paravertebral masses. Prevertebral soft tissues are normal in thicknes s. C2-C3: Disc height loss as before. No significant neuroforaminal stenosis or spinal canal stenosis. C3-C4: Bridging anterior osteophytes as before. Osseous fusion posteriorly. Disc height loss. Shall ow broad-based posterior disc osteophyte complex. Mild bilateral neuroforaminal stenosis. No signific ant spinal canal stenosis. C4-C5: Bridging osteophytes anteriorly. Osseous fusion posteriorly. Minimal disc height loss. Disc o steophyte complex posteriorly. Mild spinal canal stenosis. Mild bilateral neuroforaminal stenosis. C5-C6: Bridging anterior osteophyte with posterior osseous fusion. Prominent posterior disc osteophy te complex. Bilateral facet arthropathy. Mild-moderate bilateral neuroforaminal stenosis and mild spi nal canal stenosis. C6-C7: Bridging anterior osteophyte with osseous fusion posteriorly. Bilateral facet arthropathy. Br oad-based posterior disc osteophyte complex. No significant neuroforaminal stenosis or spinal canal s tenosis. C7-T1: Bridging anterior osteophytes. Osseous fusion posteriorly. Bilateral facet arthropathy. Broad -based posterior disc osteophyte complex. No significant neuroforaminal stenosis or spinal canal sten osis. IMPRESSION: Cervical spine without acute fracture or traumatic malalignment. 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 Multilevel, multifactorial spondylosis of the cervical spine as detailed above by vertebral body brendon nunez. Reviewed by: Alex Bryson MD on 09/16/2023 4:57 PM CATALINO Approved by: Alex Bryson MD on 09/16/2023 4:57 PM CATALINO Station ID: [id number]
== END 2023-09-16 10:20 | disposition home or self-care (01) ==
LOC: DI 10:19
PROVIDERS: ATTEND Physical Medicine & Rehabilitation Pain Medicine
DX: M47.812 Spondylosis without myelopathy or radiculopathy, cervical region (principal); M48.02 Spinal stenosis, cervical region; M43.22 Fusion of spine, cervical region

== ENCOUNTER 2023-12-23 07:51 | Outpatient (CLI) | payer MEDICARE, MEDICAID ==
[2023-12-23 08:03] LABS: BASOPHILS # (AUTO) 0.1 10^3/uL (0.0-0.1); BASOPHILS % (AUTO) 0.9 %; EOSINOPHILS # (AUTO) 0.1 10^3/uL (0.0-0.7); EOSINOPHILS % (AUTO) 0.9 %; HCT - HEMATOCRIT 49.3 % (42.0-52.0); HGB - HEMOGLOBIN 15.4 g/dL (14.0-18.0); LYMPHOCYTES # (AUTO) 1.8 10^3/uL (1.5-3.5); LYMPHOCYTES % (AUTO) 23.8 %; MEAN CORPUSCULAR HEMOGLOBIN 29.8 pg (27.0-31.0); MEAN CORPUSCULAR HGB CONC 31.2 g/dL (32.0-36.0); MEAN CORPUSCULAR VOLUME 95.4 fL (80.0-94.0); MONOCYTES # (AUTO) 0.5 10^3/uL (0.0-1.0); MONOCYTES % (AUTO) 6.1 %; NEUTROPHILS # (AUTO) 5.1 10^3/uL (1.5-6.6); PLT - PLATELET COUNT 227 10^3/uL (130-450); RED BLOOD COUNT 5.17 10^6/uL (4.70-6.10); RED CELL DISTRIBUTION WIDTH 13.2 % (12.0-15.0); WHITE BLOOD COUNT 7.6 x10^3/uL (4.8-10.8)
[2023-12-23 08:20] LABS: ALBUMIN 3.9 g/dL (3.2-5.5); ALBUMIN/GLOBULIN RATIO 1.3 (1.0-2.2); ALKALINE PHOSPHATASE 93 IU/L (42-121); ALT ALANINE AMINOTRANSFERASE 39 IU/L (10-60); AST ASPARTATE AMINOTRANSFERASE 25 IU/L (10-42); BILIRUBIN,TOTAL 0.4 mg/dL (0.2-1.0); BUN - BLOOD UREA NITROGEN 35 mg/dL (6-20); CALCIUM 9.5 mg/dL (8.5-10.3); CARBON DIOXIDE - CO2 29 mmol/L (21-32); CHLORIDE 104 mmol/L (101-111); CHOL/HDL RATIO 3.7 (<5.0); CHOLESTEROL 166 mg/dL; CREATININE 1.6 mg/dL (0.6-1.3); GFR - MDRD 43 (>89); GLUCOSE 168 mg/dL (74-104); HDL CHOLESTEROL 45 mg/dL; LDL CHOLESTEROL,CALCULATED 104 mg/dL; LDL/HDL RATIO 2.3 (<3.6); POTASSIUM 4.8 mmol/L (3.5-4.5); SODIUM 137 mmol/L (135-145); TOTAL PROTEIN 6.8 g/dL (6.4-8.9); TRIGLYCERIDES 83 mg/dL (48-352); VLDL CHOLESTEROL 17 mg/dL
[2023-12-23 08:29] LABS: CREATININE,URINE 114.1 mg/dL
[2023-12-23 08:33] LABS: THYROID STIMULATING HORMONE 1.97 uIU/mL (0.34-5.60)
[2023-12-23 08:40] LABS: MICROALBUM/CREATININE RATIO,UR 527.6 ug/mg (<30.0); MICROALBUMIN,URINE 60.2 mg/dL
[2023-12-23 13:37] LABS: ESTIMATED AVERAGE GLUCOSE 180 mg/dL (70-100); HEMOGLOBIN A1c% 7.9 % (4.27-6.07)
== END 2023-12-23 07:52 | disposition home or self-care (01) ==
LOC: LAB 07:51
PROVIDERS: ATTEND Physician Assistant
DX: E11.22 Type 2 diabetes mellitus with diabetic chronic kidney disease (principal); N18.30 Chronic kidney disease, stage 3 unspecified; Z12.5 Encounter for screening for malignant neoplasm of prostate
CPT/HCPCS: 36415; 80053; 80061; 82043; 82570; 83036; 84443; 85025; G0103; 83721; 84153

== ENCOUNTER 2024-01-23 12:07 | Outpatient (CLI) | payer MEDICARE, MEDICAID ==
[2024-01-23 12:51] LABS: CALCIUM 9.6 mg/dL (8.5-10.3); CREATININE 1.8 mg/dL (0.6-1.3); POTASSIUM 4.6 mmol/L (3.5-4.5)
== END 2024-01-23 12:08 | disposition home or self-care (01) ==
LOC: LAB 12:07
PROVIDERS: ATTEND Physician Assistant
DX: E87.5 Hyperkalemia (principal)
CPT/HCPCS: 36415; 80048

== ENCOUNTER 2024-02-19 15:52 | Outpatient (CLI) | payer MEDICARE, MEDICAID ==
--- NOTE | 2024-02-23 13:22 | Ultrasound Report ---
PROCEDURE: Renal (Retroperitoneal) INDICATIONS: CKI TECHNIQUE: Real-time scanning was performed of the retroperitoneal organs, with image documentation. COMPARISON: 09/20/2020 FINDINGS: Kidneys: Kidneys are normal in size. Right kidney measures 8.8 cm long; left kidney measures 9.9 cm long. Right renal cortical thickness is 1.3 cm; left renal cortical thickness is 1.2 cm. No solid masses, hydronephrosis, or nephrolithiasis. Small renal cysts measure up to 1.2 cm right Bladder: Pre-void bladder volume is 141 mL. Post-void residual is 12 mL. Pre-void images demonstra te no intraluminal masses or stones. On pre-void images, bilateral ureteral jets are noted with colo r Doppler interrogation. (Of note, ureteral jets may not be detectable in up to 25% of cases due to insufficient differences in specific gravity between ureteral and bladder urine). Miscellaneous: Prostate 4.3 x 3.1 x 4.7 cm IMPRESSION: Small renal cyst. Otherwise unremarkable renal ultrasound Reviewed by: Teja High MD on 02/23/2024 12:20 PM AKZARINA Approved by: Teja High MD on 02/23/2024 12:20 PM AKDT Station ID: [id number]
== END 2024-02-19 15:53 | disposition home or self-care (01) ==
LOC: DI 15:52
PROVIDERS: ATTEND Physician Assistant
DX: N17.9 Acute kidney failure, unspecified (principal); N28.1 Cyst of kidney, acquired

== ENCOUNTER 2024-03-03 11:51 | Outpatient (CLI) | payer MEDICARE, MEDICAID ==
[2024-03-03 12:34] LABS: CREATININE 1.8 mg/dL (0.6-1.3); POTASSIUM 5.4 mmol/L (3.5-4.5)
== END 2024-03-03 11:52 | disposition home or self-care (01) ==
LOC: LAB 11:51
PROVIDERS: ATTEND Physician Assistant
DX: N17.9 Acute kidney failure, unspecified (principal)
CPT/HCPCS: 36415; 80048

== ENCOUNTER 2024-03-03 11:59 | Outpatient (CLI) | payer MEDICARE, MEDICAID ==
--- NOTE | 2024-03-09 09:41 | DEXA Report ---
PROCEDURE: Dexa Spine and/or Hip INDICATIONS: OSTEOPENIA TECHNIQUE: Dual energy x-ray absorptiometry (DEXA) was performed in the regions detailed below. COMPARISON: None. FINDINGS: Lumbar Spine: Bone Mineral Density 1.211 g/cm/cm,T score -0.1. Normal Left Femoral Neck: Bone Mineral Density 0.765 g/cm/cm, T score -2.3. Osteopenia Left Total Hip: Bone Mineral Density 0.865 g/cm/cm,T score -1.6. Osteopenia (T score greater or equal to -1.0: NORMAL) (T score from -1.1 to -2.4: OSTEOPENIA) (T score less than or equal to -2.5 to: OSTEOPOROSIS) IMPRESSION: Osteopenia Patients with diagnosis of osteoporosis or osteopenia should have regular bone mineral density assess ment. For those eligible for Medicare, routine testing is allowed once every 2 years. Testing frequ ency can be increased for patients who have rapidly progressing disease or for those who are receivin g medical therapy to restore bone mass. Reviewed by: Teja High MD on 03/09/2024 8:40 AM CATALINO Approved by: Teja High MD on 03/09/2024 8:40 AM CATALINO Station ID: [id number]
== END 2024-03-03 12:00 | disposition home or self-care (01) ==
LOC: DI 11:59
PROVIDERS: ATTEND Physician Assistant
DX: M85.89 Other specified disorders of bone density and structure, multiple sites (principal); N17.9 Acute kidney failure, unspecified
CPT/HCPCS: 36415; 80048

== ENCOUNTER 2024-03-11 08:40 | Outpatient (CLI) | payer MEDICARE, MEDICAID ==
[2024-03-11 09:03] LABS: BASOPHILS # (AUTO) 0.1 10^3/uL (0.0-0.1); EOSINOPHILS # (AUTO) 0.1 10^3/uL (0.0-0.7); EOSINOPHILS % (AUTO) 1.8 %; HCT - HEMATOCRIT 41.7 % (42.0-52.0); HGB - HEMOGLOBIN 13.2 g/dL (14.0-18.0); LYMPHOCYTES # (AUTO) 1.3 10^3/uL (1.5-3.5); LYMPHOCYTES % (AUTO) 18.8 %; MEAN CORPUSCULAR HEMOGLOBIN 30.3 pg (27.0-31.0); MEAN CORPUSCULAR HGB CONC 31.7 g/dL (32.0-36.0); MEAN CORPUSCULAR VOLUME 95.9 fL (80.0-94.0); MEAN PLATELET VOLUME 9.2 fL (7.4-11.4); MONOCYTES # (AUTO) 0.4 10^3/uL (0.0-1.0); MONOCYTES % (AUTO) 5.5 %; NEUTROPHILS # (AUTO) 5.1 10^3/uL (1.5-6.6); NEUTROPHILS % (AUTO) 72.6 %; PLT - PLATELET COUNT 258 10^3/uL (130-450); RED BLOOD COUNT 4.35 10^6/uL (4.70-6.10); RED CELL DISTRIBUTION WIDTH 13.7 % (12.0-15.0)
[2024-03-11 09:16] LABS: ALBUMIN 3.6 g/dL (3.2-5.5); ALBUMIN/GLOBULIN RATIO 1.2 (1.0-2.2); BILIRUBIN,TOTAL 0.4 mg/dL (0.2-1.0); CALCIUM 8.8 mg/dL (8.5-10.3); CREATININE 1.9 mg/dL (0.6-1.3); CRP - C-REACTIVE PROTEIN 0.8 mg/dL (<0.5); TOTAL PROTEIN 6.7 g/dL (6.4-8.9)
[2024-03-11 09:36] LABS: FERRITIN 27.1 ng/mL (23.9-336.2)
== END 2024-03-11 08:41 | disposition home or self-care (01) ==
LOC: LAB 08:40
PROVIDERS: ATTEND Physician Assistant
DX: E87.5 Hyperkalemia (principal); N17.9 Acute kidney failure, unspecified; N18.9 Chronic kidney disease, unspecified; D64.9 Anemia, unspecified; R23.2 Flushing; R61 Generalized hyperhidrosis
CPT/HCPCS: 36415; 80053; 82728; 83615; 85025; 86140

== ENCOUNTER 2024-03-31 08:53 | Outpatient (CLI) | payer MEDICARE, MEDICAID ==
--- NOTE | 2024-04-01 12:57 | CT Report ---
PROCEDURE: Chest WO INDICATIONS: NIGHT SWEATS, CRONIC COUGH TECHNIQUE: A CT scan of the chest was performed. Intravenous contrast media was not administered. Images were re corded and evaluated at appropriate window settings. Reformats: axial MIP of the chest, coronal and s agittal. For radiation dose reduction, the following was used: automated exposure control, adjustment of mA and/or kV according to patient size. COMPARISON: CT chest 07/08/2023 and 09/19/2020 FINDINGS: Image quality: Diagnostic. Chest wall and lower neck: No thyroid nodule which requires sonographic follow up. No axillary or sup raclavicular adenopathy by size. Lungs and pleura: Moderate to severe centrilobular paraseptal emphysema. Chronic scarring and bronchi ectasis are seen in the right lung apex, which do not appear significant changed when compared to the CT from 07/26/2023. Scarring and bronchiectasis also again seen in the anterior right middle lobe, st able. Multiple bilateral pulmonary nodules are seen predominantly in the left lung base, which appear unchanged when compared to the CT from 09/19/2020. No suspicious new or enlarging pulmonary nodule. N o consolidation. No pleural effusions. No pneumothorax. Mediastinum: Heart size is normal. No pericardial effusion. Mild to moderate coronary artery calcific ations. No large vessel abnormality. No mediastinal adenopathy by size criteria. Bones: No aggressive osseous abnormality. Multilevel bridging osteophytes or syndesmophytes are seen throughout the visualized cervical and thoracic spine suspicious for ankylosing spondylitis or DISH. Upper Abdomen: Status post cholecystectomy. IMPRESSION: 1.Moderate to severe emphysema. 2.Stable scarlike opacities and bronchiectasis at the right lung apex and anterior right middle lobe. Stable small pulmonary nodules. 3.Multilevel flowing anterior syndesmophytes or osteophytes compatible with ankylosing spondylitis or DISH. Reviewed by: Wiley Hadley MD on 04/01/2024 12:55 PM PDT Approved by: Wiley Hadley MD on 04/01/2024 12:55 PM PDT Station ID: [id number]
== END 2024-03-31 08:54 | disposition home or self-care (01) ==
LOC: DI 08:53
PROVIDERS: ATTEND Physician Assistant
DX: J43.9 Emphysema, unspecified (principal); R91.8 Other nonspecific abnormal finding of lung field; J47.9 Bronchiectasis, uncomplicated